=== PATIENT | female | born 1950 | race Caucasian/White ===

== ENCOUNTER → 2021-03-01 15:40 | Outpatient (BNVA) | payer SELFPAY | PROVIDERS: Visit Provider Nurse Practitioner Family | DX: R06.02 Shortness of breath (principal); I48.91 Unspecified atrial fibrillation; I87.1 Compression of vein; G62.9 Polyneuropathy, unspecified; I10 Essential (primary) hypertension; E83.42 Hypomagnesemia; R09.02 Hypoxemia; G47.00 Insomnia, unspecified; M17.0 Bilateral primary osteoarthritis of knee | CPT/HCPCS: 71046 ==

== ENCOUNTER → 2021-03-11 13:06 | Outpatient (BNVA) | payer MEDICARE, OTHER, SELFPAY | PROVIDERS: Visit Provider Nurse Practitioner Family | DX: I10 Essential (primary) hypertension (principal); E83.42 Hypomagnesemia | CPT/HCPCS: 80053; 80061; 82306; 82607; 83735; 84443; 85025 ==

== ENCOUNTER 2021-03-15 16:18 | Inpatient (IN) | payer MEDICARE, SELFPAY ==
[2021-03-15] VITALS (9 sets, daily range): BP systolic 122–170; BP diastolic 69–96; PULSE 67–79; RESP 20–25; TEMP 36.4; O2SAT 91–95
--- NOTE | 2021-03-15 17:30 | XRR_ITS ---
PROCEDURE INFORMATION: Exam: XR Chest Exam date and time: 03/15/2021 5:30 PM Age: 70 years old Clinical indication: Shortness of breath; Additional info: Short of breath TECHNIQUE: Imaging protocol: XR of the chest. Views: 1 view. COMPARISON: CR XR chest 2V* [id number] 03/01/2021 3:46 PM FINDINGS: Lungs: Diffusely prominent reticular interstitial lung changes. Dense patchy airspace opacification in the lateral right lower lobe. Pleural spaces: Unremarkable. No pleural effusion. No pneumothorax. Heart/Mediastinum: Unremarkable. No cardiomegaly. Bones/joints: Unremarkable. XR/XR chest 1V portable [id number] IMPRESSION: Right lower lobe pneumonia suspected. Radiation Dose CTDIVOL = (mGy): DLP = (mGy-cm)
--- NOTE | 2021-03-15 17:31 | ECG_ITS ---
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 Measurements Intervals [place] Rate: 71 P: -25 MN: 134 QRS: 18 QRSD: 93 T: 30 QT: 400 QTc: 436 Interpretive Statements SINUS RHYTHM LOW QRS VOLTAGE IN PRECORDIAL LEADS [QRS DEFLECTION < 1.0 mV IN CHEST LEADS] Compared to ECG 03/15/2021 20:39:53 No significant changes Electronically Signed On 03-16-2021 21:58:50 OUTBOUND SALES SPECIALIST by Sunil Quan M.D. [id number]
--- NOTE | 2021-03-15 19:31 | ECG_ITS ---
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 Measurements Intervals [place] Rate: 72 P: 53 GA: 141 QRS: 10 QRSD: 88 T: 25 QT: 403 QTc: 441 Interpretive Statements SINUS RHYTHM LOW QRS VOLTAGE IN PRECORDIAL LEADS [QRS DEFLECTION < 1.0 mV IN CHEST LEADS] No previous ECG available for comparison Electronically Signed On 03-16-2021 22:07:30 BUSINESS DATA ANALYST by Sunil Quan M.D. [id number]
[2021-03-15 19:44] LABS: Hematocrit 30.7 % (37.0-47.0); Hemoglobin 10.1 g/dL (11.5-15.3); Mean Corpuscular HGB Conc 32.9 g/dL (30.0-36.0); Mean Corpuscular Hemoglobin 29.3 pg (28.0-34.0); Platelet Count 165 10^3/cmm (130-400); Red Blood Count 3.45 10^6/uL (4.1-5.3); Red Cell Distribution Width 13.2 % (12.1-15.1)
--- NOTE | 2021-03-15 19:44 | ED_ITS ---
HPI - SOB/Dyspnea General: Chief Complaint: Shortness of Breath/Dyspnea Stated Complaint: Difficulty breathing, little movement Time Seen by Provider: 03/15/21 19:32 Source: patient Mode of arrival: ambulatory Limitations: no limitations History of Present Illness: HPI Narrative: 70-year-old female who has history of A. fib along with interstitial lung disease and history of cancer many years ago. She had a [id number] smoking history she is recently moved here from [place] on seeing her physician here for the first time 2 weeks ago patient at that time had seen a PCP because she been having increasing dyspnea and weakness for the last 3 to 4 months. Patient at that time was found to be hypoxic started on home oxygen at 3 L patient states that she just has been getting weaker than more short of breath since then patient here is very unsteady on her feet having difficulty ambulate and family states it has been worsening since the summer as well. She states that she has had some swelling in her neck as well and has been having some difficulty swallowing due to that. Denies any chest pain. 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 Neuropathy Vitamin D deficiency Surgical History History of dilation and curettage History of surgery on wrist 2001 History of total hysterectomy Social History Smoking and tobacco status: former smoker Quit status (tobacco): has quit using tobacco Year quit tobacco: 1999 Former quit date comment: 2 x 30 yr Second hand smoke exposure: Yes Alcohol intake: current Alcohol intake frequency: holidays/special occasions only Caregiver/support person: Yes Lives independently: No Household members: family Marital status: service: No Current occupational status: retired History of recent travel: No Current gender identity: Female Special colten needs: No Agree to transfusion: Yes Physical Exam Const: COMMON NORMALS: patient oriented x3 GENERAL APPEARANCE: in distress and ill appearing HENMT: COMMON NORMALS: normocephalic and atraumatic HEAD & SCALP: normocephalic and atraumatic Eye: COMMON NORMALS: Equal, round and reactive pupils present and EOMs intact bilaterally PUPIL: Yes Equal, round and reactive pupils present Neck/C-Spine: COMMON NORMALS: full ROM and supple Chest: COMMONS NORMALS: normal inspection of the chest and normal palpation of entire chest wall Resp: COMMON NORMALS: normal respiratory effort, No retractions and No use of accessory muscles AUSCULTATION: rales on the right Cardio: COMMON NORMALS: regular rate, regular rhythm and No murmurs present (Cardio) RATE: regular rate RHYTHM: regular rhythm GI: COMMON NORMALS: Normal to inspection, nondistended, normoactive bowel sounds present, Soft to palpation, non-tender and no masses PALPATION: Yes Soft to palpation Extremity: COMMON NORMALS: normal to inspection and full ROM Neuro: COMMON NORMALS: patient oriented x3, moves all extremities and no focal motor deficits Psych: COMMON NORMALS: mental status grossly normal, Normal thought process present and cooperative THOUGHT PROCESS: Normal thought process present Skin: COMMON NORMALS: no rashes or lesions noted and no wounds GENERAL SKIN EXAM: no rashes or lesions noted Course Vital Signs: Vital signs: Vital Signs Temperature 97.5 F L 03/15/21 16:52 Pulse Rate 73 03/15/21 21:40 Respiratory Rate 25 H 03/15/21 21:40 Blood Pressure 156/92 03/15/21 21:40 Pulse Oximetry 93 03/15/21 21:40 MDM - SOB/Dyspnea MDM Narrative: Medical decision making narrative: Patient presents with cough increasing dyspnea does have a right lower lobe pneumonia on x-ray patient has an elevated white count likely due to the pneumonia. She is also dehydrated with an elevated creatinine. She has normal lactate blood pressures here been normal she does have elevated troponin and BNP will treat with heparin and heparin drip. Was going to do CTA to rule out pulmonary embolism but unable to do at this time due to elevated creatinine I spoke to the hospitalist will admit to the ICU. Lab Data: Labs: Lab Results 03/15/21 03/15/21 03/15/21 19:27 19:27 19:27 WBC 31.2 10^3/uL H* 1 0^3/uL (4.0-10.0) RBC 3.45 10^6/uL L 10 ^6/uL (4.1-5.3) Hgb 10.1 g/dL L g/dL (11.5-15.3) Hct 30.7 % L % (37.0-47.0) MCV 89.0 fl fl (81-99) MCH 29.3 pg pg (28.0-34.0) MCHC 32.9 g/dL g/dL (30.0-36.0) RDW 13.2 % % (12.1-15.1) Plt Count 165 10^3/cmm 10^3 /cmm (130-400) MPV 10.0 fL fL (7.4-10.4) Lymph % (Auto) Not Reportable [place] % (Auto) Not Reportable Lymph # (Auto) Not Reportable [place] # (Auto) Not Reportable Total Counted 100 (0-100) Atypical Lymphs % 0.0 % % (0-5) Absolute Neutrophi ls 28.7 10^3/cmm H 1 0^3/cmm (1.4-6.5) Segmented Neutroph ils 67 % % Abs Segm Neuts (Ma n) 20.9 10/cmm H 10/ cmm (1.6-7.1) Band Neutrophils 25.0 % % Abs Band Neuts (Ma n) 7.8 10^3/cmm H 10 ^3/cmm (0.0-1.2) Absolute Lymphocyt es 1.6 10^3/cmm 10^3 /cmm (1.2-3.4) Lymphocytes (Manua l) 5 % % Monocytes (Manual) 3.0 % % Absolute Monocytes 0.9 10^3/cmm H 10 ^3/cmm (0.1-0.6) Eosinophils (Manua l) 0 % % Absolute Eosinophi ls 0.0 10^3/cmm 10^3 /cmm (0.0-0.7) Basophils (Manual) 0.0 % % Absolute Basophils 0.0 10^3/cmm 10^3 /cmm (0.0-0.2) Platelet Estimate Normal (Normal) [place] Cells Trace D-Dimer Specimen Type Sample Site ABG pH ABG pCO2 ABG pO2 ABG HCO3 ABG Base Excess [place] Test Hematocrit O2 Delivery Device O2 Liters/Min Travel Occupational Therapist ID Sodium 132 mmol/L L mmol /L (136-145) Potassium 4.4 mmol/L mmol/L (3.5-5.1) Chloride 89 mmol/L L mmol/ L (98-107) Carbon Dioxide 24 mmol/L mmol/L (22-29) Anion Gap 23.4 H (5-19) BUN 56 mg/dL H mg/dL (8-23) Creatinine 3.7 mg/dL H mg/dL (0.5-0.9) GFR Calculation 12.1 mL/min L mL/ min (90-130) Glucose 118 mg/dL H mg/dL (65-115) Calculated Osmolal ity 291 mOsm/kg mOsm/ kg (285-295) Lactate Calcium 9.6 mg/dL mg/dL (8.5-10.5) Total Bilirubin 0.8 mg/dL mg/dL (0.15-1.2) AST 42 U/L H U/L (0-32) ALT 40 U/L H U/L (0-33) Alkaline Phosphata se 117 IU/L H IU/L (35-105) Troponin T Baselin e 188 ng/L H* ng/L (0-10) NT-Pro-B Natriuret Pep 80246 pg/mL H pg/ mL (0-125) Total Protein 7.0 g/dL g/dL (6.6-8.7) Albumin 3.5 g/dL g/dL (3.5-5.2) Globulin 3.5 g/dL g/dL (1.3-4.6) 03/15/21 03/15/21 03/15/21 19:27 20:24 21:13 WBC RBC Hgb Hct MCV MCH MCHC RDW Plt Count MPV Lymph % (Auto) [place] % (Auto) Lymph # (Auto) [place] # (Auto) Total Counted Atypical Lymphs % Absolute Neutrophi ls Segmented Neutroph ils Abs Segm Neuts (Ma n) Band Neutrophils Abs Band Neuts (Ma n) Absolute Lymphocyt es Lymphocytes (Manua l) Monocytes (Manual) Absolute Monocytes Eosinophils (Manua l) Absolute Eosinophi ls Basophils (Manual) Absolute Basophils Platelet Estimate [place] Cells D-Dimer 6.02 ug/mIFEU H u g/mIFEU (0-0.59) Specimen Type Arterial Sample Site Radial, right ABG pH 7.45 (7.35-7.45) ABG pCO2 37.3 mmHg mmHg (35-45) ABG pO2 62.9 mmHg L mmHg (80.0-100.0) ABG HCO3 26.0 mmol/L mmol/ L (22-26) ABG Base Excess 2.0 mmol/L mmol/L (-2.0-2.0) [place] Test Pos Hematocrit 37.1 % % (37-47) O2 Delivery Device Nc O2 Liters/Min 4.0 % % Travel Occupational Therapist ID [email or web address] Sodium Potassium Chloride Carbon Dioxide Anion Gap BUN Creatinine GFR Calculation Glucose Calculated Osmolal ity Lactate 1.4 mmol/L mmol/L (0.5-2.2) Calcium Total Bilirubin AST ALT Alkaline Phosphata se Troponin T Baselin e NT-Pro-B Natriuret Pep Total Protein Albumin Globulin Imaging Data^: CXR: Attestation: I personally reviewed and interpreted this imaging study as follows: Radiologist's impression: ADM Date: 03/15/21 Loc: ER Room/Bed: Attending Dr: Ordering Provider/Ordering MD: Jignesh Ba NP Date of Service: 03/15/21 Procedure(s): XR chest 1V portable [id number] Accession Number(s): [id number] Report Number: [id number] PROCEDURE INFORMATION: Exam: XR Chest Exam date and time: 03/15/2021 5:30 PM Age: 70 years old Clinical indication: Shortness of breath; Additional info: Short of breath TECHNIQUE: Imaging protocol: XR of the chest. Views: 1 view. COMPARISON: CR XR chest 2V* [id number] 03/01/2021 3:46 PM FINDINGS: Lungs: Diffusely prominent reticular interstitial lung changes. Dense patchy airspace opacification in the lateral right lower lobe. Pleural spaces: Unremarkable. No pleural effusion. No pneumothorax. Heart/Mediastinum: Unremarkable. No cardiomegaly. Bones/joints: Unremarkable. XR/XR chest 1V portable [id number] IMPRESSION: Right lower lobe pneumonia suspected. Radiation Dose CTDIVOL = (mGy): DLP = (mGy-cm) Dictated By: Samuel Abreu Signed By: Samuel Abreu Signed Date/Time: 03/15/21 1847 DD/ 1730 EKG Data^: EKG 1: Attestation: I personally reviewed and interpreted this EKG as follows: EKG Interpretation Date: 03/15/21 EKG interpretation time: 20:39 Interpretation: nsr hr [address] or t wave abnormalities qrs 88 qtc 427 EKG 2: Attestation: I personally reviewed and interpreted this EKG as follows: EKG Interpretation Date: 03/15/21 EKG interpretation time: 21:00 Interpretation: nsr hr [address] or t wave abnormalities qrs 93 qtc 422 Discharge Plan Discharge Patient Disposition: Admitted As Inpatient Admit Provider: Kayy Buck Clinical Impression: Elevated troponin Community acquired pneumonia Qualifiers: Laterality: right Lung location: lower lobe of lung Qualified Code(s): J18.9 - Pneumonia, unspecified organism Condition: Stable Coding Level of Care Code ED Desk Maker for g Fwd Exam Comprehensive
[2021-03-15] MEDS: ipratropium-albuterol 3 mL Neb INHALATION (20:00)
[2021-03-15 20:03] LABS: Absolute Neutrophil 28.7 10^3/cmm (1.4-6.5); Absolute Segmented Neutrophil 20.9 10/cmm (1.6-7.1); Band Neutrophils Absolute 7.8 10^3/cmm (0.0-1.2); Burr Cells Trace; Eosinophils 0 %; Lymphocytes 5 %; Lymphocytes Absolute 1.6 10^3/cmm (1.2-3.4); Monocytes Absolute 0.9 10^3/cmm (0.1-0.6); Platelet Estimate Normal (Normal); Segmented Neutrophils 67 %; Total Cells Counted 100 (0-100)
[2021-03-15 20:05] LABS: White Blood Count 31.2 10^3/uL (4.0-10.0)
[2021-03-15 20:10] LABS: Troponin(5th) Baseline 188 ng/L (0-10)
[2021-03-15 20:15] LABS: Alanine Aminotransferase 40 U/L (0-33); Albumin Level 3.5 g/dL (3.5-5.2); Alkaline Phosphatase 117 IU/L (35-105); Anion Gap 23.4 (5-19); Aspartate Amino Transferase 42 U/L (0-32); Blood Urea Nitrogen 56 mg/dL (8-23); Calcium 9.6 mg/dL (8.5-10.5); Carbon Dioxide 24 mmol/L (22-29); Chloride 89 mmol/L (98-107); Globulin 3.5 g/dL (1.3-4.6); Glomerular Filtration Rate 12.1 mL/min (90-130); Glucose 118 mg/dL (65-115); NT Pro B Type Natriuretic Pept 27729 pg/mL (0-125); Osmolality Calculated 291 mOsm/kg (285-295); Potassium 4.4 mmol/L (3.5-5.1); Sodium 132 mmol/L (136-145); Total Bilirubin 0.8 mg/dL (0.15-1.2)
[2021-03-15 20:57] LABS: Lactate (Lactic Acid level) 1.4 mmol/L (0.5-2.2)
[2021-03-15] MEDS: sodium chloride 0.9% 1,000 ML 999 ML IV (21:09)
[2021-03-15 21:10] LABS: D Dimer 6.02 ug/mIFEU (0-0.59)
[2021-03-15] MEDS: levofloxacin-dextrose 5 % 750 MG/150 ML PREMIX 100 MG IV (21:10)
--- NOTE | 2021-03-15 21:15 | CTR_ITS ---
PROCEDURE INFORMATION: Exam: CT Chest Without Contrast; Diagnostic Exam date and time: 03/15/2021 9:15 PM Age: 70 years old Clinical indication: Shortness of breath; Additional info: Rll pneumonia, progressive dyspnea TECHNIQUE: Imaging protocol: Diagnostic computed tomography of the chest without contrast. Radiation optimization: All CT scans at this facility use at least one of these dose optimization techniques: automated exposure control; mA and/or kV adjustment per patient size (includes targeted exams where dose is matched to clinical indication); or iterative reconstruction. COMPARISON: CR (CHEST, ) 03/15/2021 6:09 PM RADIATION DOSE METRICS: Total DLP (mGy-cm): 1124.3 FINDINGS: Lungs: Emphysema. Coarse reticular interstitial lung changes. Mosaic attenuation changes. Patchy ground-glass changes in the right middle lobe and right lower lobe. Pleural spaces: Small volume right pleural effusion. Negative for pneumothorax. Heart: Unremarkable. No cardiomegaly. No pericardial effusion. Aorta: Unremarkable. No aortic aneurysm. Lymph nodes: Bulky diffuse mediastinal lymphadenopathy. Large right paratracheal lymph node is partially calcified. Enlarged right paratracheal lymph node measures 3.6 cm x 2.5 cm. Enlarged lymph node mass in the prevascular space measures 5.1 cm x 2.8 cm on axial series 2, image 18. Diaphragm: Mildly elevated right diaphragm. Right lower lobe compressive atelectasis. Adrenal glands: Isoattenuating circumscribed soft tissue mass of the right adrenal gland with indeterminate features on noncontrast imaging measures 3 cm x 2.7 cm. Bones/joints: The thoracic spine demonstrates moderate degenerative changes at multiple levels. No focal suspicious bone lesion. Soft tissues: Chest wall soft tissues are unremarkable. Thoracic paraspinal soft tissues are unremarkable. CT/CT chest wo con [id number] IMPRESSION: 1. Diffuse mediastinal lymphadenopathy. Diagnostic considerations include sequela of granulomatous disease, lymphoproliferative disorder, atypical infection, or metastatic malignancy. 2. Small volume right pleural effusion. 3. Pneumonia in the right lung is not excluded. 4. Indeterminate right adrenal gland mass. 5. Adrenal protocol CT scan recommended. COMMENTS: Consistent with the [employer]'s Incidental Findings Committee white paper (J Am Janie Radiol 2017): For any incidental adrenal lesion greater than 1 cm but less than 4 cm classified in this report as benign, likely benign, or containing fat (including classification as an adenoma or myelolipoma), no follow-up imaging is recommended per consensus recommendations based on imaging criteria. Further lab evaluation could be pursued if warranted based on clinical findings. Radiation Dose CTDIVOL = (mGy): DLP = 1124.3 (mGy-cm)
--- NOTE | 2021-03-15 21:18 | CTR_ITS ---
PROCEDURE INFORMATION: Exam: CT Neck Without Contrast Exam date and time: 03/15/2021 9:18 PM Age: 70 years old Clinical indication: Dysphagia / difficulty swallowing and dyspnea / difficulty breathing; Additional info: Lymphadenopathy on exam, worsening uri, pneumonia TECHNIQUE: Imaging protocol: Computed tomography images of the neck without contrast. Radiation optimization: All CT scans at this facility use at least one of these dose optimization techniques: automated exposure control; mA and/or kV adjustment per patient size (includes targeted exams where dose is matched to clinical indication); or iterative reconstruction. COMPARISON: CR (CHEST, ) 03/15/2021 6:09 PM RADIATION DOSE METRICS: Total DLP (mGy-cm): 473.36 FINDINGS: Nasopharynx: Unremarkable. Oropharynx: Unremarkable. No significant tonsillar enlargement. Hypopharynx: Unremarkable. Larynx: Unremarkable. Normal epiglottis. Retropharyngeal space: Unremarkable. Submandibular/Parotid glands: Normal. Glands are normal in size. Thyroid: Thyroid lobes are symmetric and unremarkable. Lymph nodes: There is lymphadenopathy in the superior mediastinum but this is incompletely assessed. There is no lymphadenopathy in the neck. Trachea: Visualized trachea is unremarkable. Lungs: Emphysematous lung changes. Mosaic attenuation of the lung apices. Coarse reticular interstitial lung changes. Right pleural effusion. Bones/joints: Severe disc disease at C5-C6 and C6-C7. No acute cervical spine fractures are identified. Vasculature: Large volume calcified atherosclerotic wall plaques of the carotid arteries. Bilateral carotid artery bulb region atherosclerotic wall plaques. Soft tissues: Unremarkable. No significant soft tissue swelling. CT/CT neck wo con [id number] IMPRESSION: 1. Negative for cervical lymphadenopathy. 2. Partially visible mediastinal lymphadenopathy. 3. No acute soft tissue abnormality in the neck. 4. Right pleural effusion. Radiation Dose CTDIVOL = (mGy): DLP = 473.36 (mGy-cm)
[2021-03-15 21:24] LABS: ABG PCO2 37.3 mmHg (35-45); ABG PH Result 7.45 (7.35-7.45); Arterial Blood Gas Hematocrit 37.1 % (37-47); Blood Gas Allen Test Pos; Blood Gas Sample Type Arterial; PO2 ABG 62.9 mmHg (80.0-100.0)
[2021-03-15 21:26] LABS: Blood Gas Sample Site Radial, right; Oxygen Device NC
[2021-03-15 22:41] LABS: HIV 1 & 2 Antibody Non-Reactive (Non-Reactiv); HIV 1 & 2 Antigen Non-Reactive (Non-Reactiv)
[2021-03-15 23:26] LABS: Troponin 5 2HR Delta -10.4 ABS# (0-10)
[2021-03-15 23:27] LABS: Troponin 5 2HR 177.6 ng/L (0-10)
[2021-03-15] MEDS: heparin 5,000 unit/mL INJ 1 mL 4000 UNIT IVP (23:31)
--- NOTE | 2021-03-15 23:31 | ECG_ITS ---
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 Measurements Intervals [place] Rate: 72 P: 65 VA: 159 QRS: 45 QRSD: 96 T: 29 QT: 398 QTc: 438 Interpretive Statements SINUS RHYTHM Compared to ECG 03/15/2021 21:00:54 No significant changes Electronically Signed On 03-16-2021 22:11:59 ELECTRON BEAM PHOTO MASK TECHNICIAN by Sunil Quan M.D. [id number]
[2021-03-15] MEDS: heparin drip 25,000 UNIT/500 ML PREMIX 26 UNIT IV (23:32)
[2021-03-15 23:33] LABS: SARS Covid-2 Antigen Negative (Negative)
[2021-03-15] MEDS: cefepime 1,000 MG in sodium chloride 0.9% (plus) 50 ML 100 MG IV (23:34)
[2021-03-16] VITALS (67 sets, daily range): BP systolic 115–233; BP diastolic 67–141; PULSE 63–88; RESP 15–29; TEMP 36.3–36.6; O2SAT 86–97; BMI 34.7
[2021-03-16] MEDS: vancomycin 1,000 MG in sodium chloride 0.9% 250 ML 250 MG IV (00:19)
[2021-03-16 00:33] LABS: Glucose Point of Care 148 mg/dL (70-110)
[2021-03-16] MEDS: acetaminophen 325 mg Tablet 650 MG PO (00:33)
[2021-03-16 00:38] LABS: Influenza A by IFA Negative (Negative); Influenza B by IFA Negative (Negative)
[2021-03-16] MEDS: ipratropium-albuterol 3 mL Neb INHALATION ×5 (00:42→20:05)
--- NOTE | 2021-03-16 01:00 | PM.HP ---
Providers/Chief Complaint Admitting Physician: Kayy Buck MD Chief Complaint: Difficulty breathing, little movement History of Present Illness Juliet Adair is a 70 year old female moved locally into the area from [place] earlier this year, has not had any medical care in the past 2 years, recently established care with her PCP on 03/01/21. She has been experiencing ongoing symptoms for about 3 weeks now. Reports her symptoms to be cough, associated with expectoration and blood streaking, increasing shortness of breath starting approximately 3 weeks ago. On March 01 she had described to her PCP additional symptoms of runny nose sore throat and hoarseness of voice. She was also able to reportedly palpate cervical lymphadenopathy and was concerned about recurrence of uterine cancer which she has had in the past. Reportedly cancer free for the last 4 years. Symptoms do not appear to be worsened with lying flat. Denies any chest pain. Has intermittent palpitations from known atrial fibrillation. She is not on any anticoagulation. 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 She does have some chronic swelling in her left leg because of this. On the same visit her O2 sats were noted to drop down to 83% with ambulation and started on supplemental O2. Patient reported mild improvement with initiation of oxygen supplementation but then over the past 3 weeks has had a recurrence and in fact worsening of symptoms. She had a chest x-ray at the time and suspected to have pneumonia for which she was started on antibiotic coverage with Augmentin and then levofloxacin with no improvement. Diagnostics today are significant for elevated white blood cell count up to 31,000 chest x-ray with right lower lobe pneumonia. Elevated troponins greater than 100, D-dimer elevated at 6, elevated BNP at 27,000. Rapid Covid antigen negative, PCR pending. Review of Systems General: Reports: 10 or more systems reviewed and unremarkable except in HPI and below Const: Denies: fever(s), chills or body aches Eyes: Denies: change in vision, blurry vision or photophobia ENMT: Reports: hoarseness; Denies: throat pain, enlarged tonsils, odynophagia or nasal congestion Card: Denies: chest pain, palpitations, irregular heart rhythm, edema, swelling of feet/ankles, lightheadedness, pre-syncope, dyspnea on exertion or orthopnea Resp: Denies: dyspnea, productive cough, non-productive cough, wheezing, stridor, pain on inspiration, change in phlegm color, hemoptysis or chest congestion GI: Denies: abdominal pain, nausea, vomiting, hematemesis, coffee ground emesis, dysphagia, heartburn, diarrhea, constipation, GI cramping, change in stool character, hematochezia or melena : Denies: flank pain, difficulty voiding, dysuria, urinary frequency, urinary urgency, urinary hesitancy or hematuria Musc: Denies: neck pain, back pain, extremity pain, joint swelling, joint warmth or deformity Neuro: Denies: headache(s), numbness in extremities, weakness in extremities, sensory changes, difficulty walking, frequent falls, dizziness, vertigo, behavioral changes, Slurred speech present or seizure-like activity Psych: Denies: anxiety, depression, suicidal ideation or homicidal ideation Endo: Denies: polyuria, polydipsia, tired all the time, cold intolerance or hot flashes Manuel/Lymph: Denies: easy bruising or easy bleeding Medications/Allergies Home Medications Medication Instructions Recorded Confirmed Last Taken Type albuterol sulfate 90 mcg/actuation 2 puff INHALATION Q6H PRN #8.5 g 03/01/21 03/01/21 Unknown Rx aerosol inhaler amoxicillin 875 mg-potassium 1 tab PO BID #20 tab 03/01/21 03/01/21 Unknown Rx clavulanate 125 mg tablet ascorbic acid (vitamin C) 1,000 mg 1 g PO Q6H 03/01/21 03/01/21 Unknown History tablet aspirin 81 mg tablet,delayed 81 mg PO DAILY 03/01/21 03/01/21 Unknown History release carvedilol 25 mg tablet 25 mg PO BID 90 Days #180 tab 03/01/21 03/01/21 Unknown Rx cholecalciferol (vitamin D3) 25 25 mcg PO DAILY 03/01/21 03/01/21 Unknown History mcg (1,000 unit) capsule furosemide 40 mg tablet 40 mg PO DAILY #90 tab 03/01/21 03/01/21 Unknown Rx gabapentin 300 mg capsule 300 mg PO TID 90 Days #270 cap 03/01/21 03/01/21 Unknown Rx losartan 100 1 tab PO DAILY #90 tab 03/01/21 03/01/21 Unknown Rx mg-hydrochlorothiazide 25 mg tablet magnesium oxide 500 mg capsule 500 mg PO DAILY #90 cap 03/01/21 03/01/21 Unknown Rx naproxen 500 mg tablet 500 mg PO BID 90 Days #180 tab 03/01/21 03/01/21 Unknown Rx niacin 1,000 mg tablet,extended 1,000 mg PO DAILY tab 03/01/21 03/01/21 Unknown History release potassium chloride 20 mEq 20 meq PO DAILY #90 tab 03/01/21 03/01/21 Unknown Rx tablet,extended release tramadol 50 mg tablet 50 mg PO BID PRN #60 tab 03/01/21 03/01/21 Unknown Rx zolpidem 10 mg tablet 10 mg PO .hs #30 tab 03/01/21 03/01/21 Unknown Rx oxygen 4L via NC #1 ea 03/04/21 Unknown Rx levofloxacin 500 mg tablet 500 mg PO DAILY #7 tab 03/14/21 Unknown Rx methylprednisolone 4 mg tablets in See Rx Instructions PO PER PKG DIR 03/14/21 Unknown Rx a dose pack #21 ea Allergies Allergy/AdvReac Type Severity Reaction Status Date / Time amoxicillin [From Augmentin] Allergy ADR-Diarrhe Verified 03/15/21 16:58 a azithromycin Allergy ADR-Diarrhe Verified 03/15/21 16:58 a clavulanic acid Allergy ADR-Diarrhe Verified 03/15/21 16:58 [From Augmentin] a meperidine Allergy ALGY-Hives Verified 03/01/21 14:20 PFSH Acute PFSH: Medical History A-fib 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 Neuropathy Vitamin D deficiency Surgical History History of dilation and curettage History of surgery on wrist 2001 History of total hysterectomy Social History Smoking and tobacco status: former smoker Quit status (tobacco): has quit using tobacco Year quit tobacco: 1999 Former quit date comment: 2 x 30 yr Second hand smoke exposure: Yes Alcohol intake: current Alcohol intake frequency: holidays/special occasions only Caregiver/support person: Yes Lives independently: No Household members: family Marital status: service: No Current occupational status: retired History of recent travel: No Current gender identity: Female Special colten needs: No Agree to transfusion: Yes Vitals/I&O/Wt Last Vital Signs Temp 97.3 F L 03/16/21 04:00 Pulse 79 03/16/21 06:00 Resp 16 03/16/21 04:45 BP 168/103 03/16/21 05:45 Pulse Ox 94 03/16/21 05:45 03/15/21 03/16/21 03/16/21 22:59 06:59 14:59 Intake Total 1613.367 / 1613.367 Output Total 300 / 300 Balance 1313.367 / 1313.367 Weight last 48 hrs Weight 91.626 kg Weight 92.986 kg Physical Exam Narrative: EXAM NARRATIVE: General: No acute distress, AO x3, visibly dyspneic on exam HEENT: PERRLA, pupils bilaterally equal and reactive, pallors not present Chest: Normal vesicular breath sounds, no added sounds, equal good air entry bilaterally CVS: S1-S2 regular, no murmurs, no tachycardia, no gallops, no rubs Abdomen: Soft, nontender, no organomegaly, bowel sounds present Neuro: No focal deficits, no facial deformity, AO x3, power 5/5 in all limbs reports blurring of vision Extremities: Left lower extremity swelling more compared to right side Data : 03/15/21 19:27 03/15/21 19:27 Micro: Microbiology 03/15/21 20:55 Blood Culture - Preliminary Blood SPECIMEN COLLECTED 03/15/21 20:24 Blood Culture - Preliminary Blood SPECIMEN COLLECTED Attestation for Other Data: I personally reviewed and interpreted the following: Other data: XR/XR chest 1V portable [id number] IMPRESSION: Right lower lobe pneumonia suspected. A&P Assessment and plan (1) Sepsis: Status: Acute Qualifiers: Sepsis type: sepsis due to unspecified organism Sepsis acute organ dysfunction status: with acute organ dysfunction Severe sepsis acute organ dysfunction type: acute renal failure Severe sepsis shock status: without septic shock Acute renal failure type: unspecified Qualified Code(s): A41.9 - Sepsis, unspecified organism; R65.20 - Severe sepsis without septic shock; N17.9 - Acute kidney failure, unspecified (2) Community acquired pneumonia: Status: Acute Qualifiers: Laterality: right Lung location: lower lobe of lung Qualified Code(s): J18.9 - Pneumonia, unspecified organism (3) Elevated troponin: Status: Acute (4) Hypertension: Status: Acute Qualifiers: Hypertension type: unspecified Qualified Code(s): I10 - Essential (primary) hypertension (5) A-fib: Status: Acute Qualifiers: Atrial fibrillation type: unspecified Qualified Code(s): I48.91 - Unspecified atrial fibrillation (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 (7) Respiratory failure with hypoxia: Status: Acute Qualifiers: Chronicity: acute Qualified Code(s): J96.01 - Acute respiratory failure with hypoxia (8) Acute kidney injury: Status: Acute Additional A&P Information Patient with a notable past medical history of hypertension, May Thurner syndrome, atrial fibrillation not currently on any anticoagulation presenting with worsening dyspnea increasing cough expectoration and hemoptysis at least over the last 3 weeks, without improvement on outpatient course of Augmentin on levofloxacin. Admit to ICU in view of sepsis and multiorgan failure #Sepsis: Meets criteria with elevated white blood cell count, tachycardia tachypnea. Also additionally with signs of endorgan failure including hypoxic respiratory failure, acute kidney injury. Subjective fever and chills also reported at home, currently afebrile since presentation into the ER. Fluid supplementation not initiated as patient is clinically euvolemic, elevated BNP 27,000 may have underlying CHF additionally. Blood culture taken prior to initiation of antibiotics Start empiric antibiotic coverage with cefepime, vancomycin and levofloxacin for atypical coverage All antibiotics to be renally dosed. Preliminarily source appears to be worsening pneumonia. Chest x-ray with right lower lobe infiltrate. Perform CT chest to assess for pneumonia, potential complications incl complicated effusions, empyema possibilities. CT neck additionally to evaluate for cervical LAD. supplemental 02 to keep saturation >92% Duoneb and budesonide inhalation, hold off on steroids for now COVID, MRSA PCR, sputum gram stain and cx, influenza ag unvaccinated for COVID and Flu # Pneumonia: clinically worsening as above. Abx coverage as above # Elevated troponin: 2 hr delta negative Also with elevated D dimer, worsening dyspnea, and h/o May thruner syndrome, high suspicion for DVT/PE. Cannot obtain CTA chest due to DEBRA. Check LE venous duplex and echocardiogram for right heart strain, right side heart failure . Currently euvolemic. Start presumptive anticoagulation with heparind drip # elevated troponin : May be related to NSTEMI vs posisble PE. Echocardiogram ordered to assess RWMA, systolic and distaolic function. Heparin a/c presumptively Continue ASA 81mg po daily # DEBRA : Cr up to 3.7, up from 1.3 on 03/11. No past h/o CKD per patient Check bladder scan, renal US, urine lytes Renally dose all abx Hold NSAIDs, HCTZ and losartan Continue carvedilol # A fib, currently rate controlled. Continue Coreg. Patient not on a/c as outpatient # Transaminitis : likely from sepsis. Abdominal imaging if continues to worsen. Normal T.bili, mild elevation ALP to 117. Attestations Medical Necessity Statement*: >2midnight admission anticipated for above defined care Critical Care Time: The high probability of a clinically significant, sudden or life threatening deterioration of the patient's [respiratory, cardiovascular, renal, ID] system(s) required my full and direct attention, intervention and personal management. The critical care time is as shown. 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 [facility] Fwd Diagnoses Sepsis A41.9; R65.20; N17.9 Sepsis type: sepsis due to unspecified organism Sepsis acute organ dysfunction status: with acute organ dysfunction Severe sepsis acute organ dysfunction type: acute renal failure Severe sepsis shock status: without septic shock Acute renal failure type: unspecified Community acquired pneumonia J18.9 Laterality: right Lung location: lower lobe of lung Elevated troponin R77.8 Hypertension I10 Hypertension type: unspecified A-fib I48.91 Atrial fibrillation type: unspecified May-Thurner syndrome I87.1 Respiratory failure with hypoxia J96.01 Chronicity: acute Acute kidney injury N17.9
[2021-03-16 03:59] LABS: Troponin 5 6HR 147.3 ng/L (0-10)
--- NOTE | 2021-03-16 04:41 | CTR_ITS ---
PROCEDURE INFORMATION: Exam: CT Head Without Contrast Exam date and time: 03/16/2021 4:41 AM Age: 70 years old Clinical indication: Visual disturbance; Patient HX: Patient states sudden onset of blurry vision. Exam repeated due to motion. Best exam submitted. ; Additional info: Change in vision TECHNIQUE: Imaging protocol: Computed tomography of the head without contrast. Radiation optimization: All CT scans at this facility use at least one of these dose optimization techniques: automated exposure control; mA and/or kV adjustment per patient size (includes targeted exams where dose is matched to clinical indication); or iterative reconstruction. COMPARISON: CT neck wo con [id number] 2021-03-15 21:46 RADIATION DOSE METRICS: Total DLP (mGy-cm): 1171.3 FINDINGS: Brain: No midline shift, mass, fluid collection, or evidence of acute hemorrhage. Loss of stovall-white differentiation in the left more so than right occipital lobes with areas of low attenuation extending into the juxtacortical region. Recommend MRI, suspect ischemia, or potentially PRES. Cerebral ventricles: No ventriculomegaly. Paranasal sinuses: Visualized sinuses are unremarkable. No fluid levels. Mastoid air cells: Visualized mastoid air cells are well aerated. Bones/joints: Unremarkable. No acute fracture. Soft tissues: Unremarkable. CT/CT head wo con* [id number] IMPRESSION: Loss of stovall-white differentiation in the left more so than right occipital lobes with areas of low attenuation extending into the juxtacortical region. Recommend MRI, suspect ischemia, or potentially PRES. Radiation Dose CTDIVOL = (mGy): DLP = 1171.3 (mGy-cm)
--- NOTE | 2021-03-16 05:37 | PC.NURSE ---
At 0015 patient states my vision is changing Patient furthered assessed and found to have blurry vision on left side. NIH completed with score of 3. BP 180/. Patient does not show any other symptoms of stroke. 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 Dr Buck paged twice with results and no response. Dr Buck paged again when patient BP continues to increase 200/106. Dr Buck ordered CT head. Ct head shows bilateral occipital infarcts, Dr Buck notified at 0530 in person.
--- NOTE | 2021-03-16 05:49 | PC.NURSE ---
Heparin gtt stopped at [address] Buck.
--- NOTE | 2021-03-16 07:24 | USR_ITS ---
PROCEDURE INFORMATION: Exam: US Retroperitoneal; Complete; Kidneys and Bladder Exam date and time: 03/16/2021 7:24 AM Age: 70 years old Clinical indication: Abnormal findings; Abnormal lab test; Abnormal kidney function lab tests; Additional info: Ian, HTN TECHNIQUE: Imaging protocol: Real-time ultrasound of the retroperitoneum with image documentation. Complete exam focused on the kidneys and bladder. COMPARISON: CT abdomen pelvis con [id number] 03/16/2021 8:38 AM FINDINGS: Right kidney: The right kidney measures 11.6 cm in length. Cortical thickness is 1.3 cm. There is no renal mass, calcification or hydronephrosis. There is a well-defined 2.6 cm mass above the superior pole of the right kidney consistent with the adrenal mass seen on recent CT scan. Left kidney: The left kidney measures 12.1 cm in length. Cortical thickness is 1.0 cm. There is no renal mass, calcification or hydronephrosis. Urinary bladder: Not imaged. US/US renal BI* [id number] IMPRESSION: 1. Normal kidneys. 2. There is a 2.6 cm in the determinate mass in the right adrenal gland. Radiation Dose CTDIVOL = (mGy): DLP = (mGy-cm)
--- NOTE | 2021-03-16 07:37 | PC.NURSE ---
recd. resting quietly,states she is short of breath. b.b.s. have crackles mostly throughout.
[2021-03-16 07:45] LABS: Basophils # 0.1 10^3/uL (0.0-0.1); Basophils % 0.4 %; Hematocrit 29.6 % (37.0-47.0); Hemoglobin 9.9 g/dL (11.5-15.3); Lymphocytes # 0.5 10^3/uL (0.8-4.8); Lymphocytes % 1.6 %; Mean Corpuscular HGB Conc 33.4 g/dL (30.0-36.0); Mean Corpuscular Hemoglobin 29.6 pg (28.0-34.0); Mean Corpuscular Volume 88.6 fl (81-99); Mean Platelet Volume 9.9 fL (7.4-10.4); Monocytes # 0.6 10^3/uL (0.2-0.9); Monocytes % 2.1 %; Neutrophils # 25.87 10^3/uL (1.8-7.7); Nucleated Red Blood Cells % 0 %; Platelet Count 151 10^3/cmm (130-400); Red Blood Count 3.34 10^6/uL (4.1-5.3); Red Cell Distribution Width 13.2 % (12.1-15.1); White Blood Count 29.2 10^3/uL (4.0-10.0)
[2021-03-16 07:51] LABS: Neutrophils % 95.9 %
--- NOTE | 2021-03-16 08:07 | CTR_ITS ---
PROCEDURE INFORMATION: Exam: CT Abdomen And Pelvis Without Contrast Exam date and time: 03/16/2021 8:07 AM Age: 70 years old Clinical indication: Abdominal pain; Additional info: Adrenal mass TECHNIQUE: Imaging protocol: Computed tomography of the abdomen and pelvis without contrast. Radiation optimization: All CT scans at this facility use at least one of these dose optimization techniques: automated exposure control; mA and/or kV adjustment per patient size (includes targeted exams where dose is matched to clinical indication); or iterative reconstruction. COMPARISON: CT chest wo con [id number] 03/15/2021 9:49 PM RADIATION DOSE METRICS: Total DLP (mGy-cm): 1397.15 FINDINGS: Lungs: There is bibasilar atelectasis and infiltration especially on the right side. Pleural spaces: There is stable loculated moderate right pleural effusion and minimal left pleural effusion. Liver: Normal. No mass. Gallbladder and bile ducts: Normal. No calcified stones. No ductal dilation. Pancreas: Normal. No ductal dilation. Spleen: Normal. No splenomegaly. Adrenal glands: There is a 3.0 cm isodense mass in the right adrenal gland. This is not fully evaluated on this CT scan due the lack of IV contrast. The left adrenal gland is normal. Kidneys and ureters: Normal. No hydronephrosis. Stomach and bowel: The there is mild sigmoid diverticulosis but no evidence of acute diverticulitis. There is no bowel obstruction or dilatation. Appendix: No evidence of appendicitis. Intraperitoneal space: Unremarkable. No free air. No significant fluid collection. Vasculature: There is calcification of the aorta but no aneurysm. There is calcification at the origins of the mesenteric and renal arteries with stenosis. Lymph nodes: Unremarkable. No enlarged lymph nodes. Urinary bladder: Unremarkable as visualized. Reproductive: Unremarkable as visualized. Bones/joints: Chronic degenerative changes are present in the spine with joint space narrowing sclerosis and osteophytes. There is prominent arthritic change in the right sacroiliac joint. Soft tissues: Unremarkable. CT/CT abdomen pelvis wo con [id number] IMPRESSION: 1. There is a 3.0 cm isodense right adrenal mass. This is not fully evaluated due the lack of IV contrast. Dedicated CT scan of the adrenal glands with and without contrast or chemical shift MRI is advised. (Reference: Joseph-Beard) 2. Atherosclerotic calcified aorta with calcification and stenosis at the origins of the mesenteric and renal arteries. 3. Mild diverticulosis. 4. No acute abnormalities are seen in the abdomen and pelvis. COMMENTS: Consistent with the [employer]'s Incidental Findings Committee white paper (J Am Janie Radiol 2017): For any incidental adrenal lesion greater than 1 cm but less than 4 cm classified in this report as benign, likely benign, or containing fat (including classification as an adenoma or myelolipoma), no follow-up imaging is recommended per consensus recommendations based on imaging criteria. Further lab evaluation could be pursued if warranted based on clinical findings. REFERENCES: Morenita PALACIO, et al. Management of Incidental Adrenal Masses: A White Paper of the ACR Incidental Findings Committee. J Am Janie Radiol. 2017;14(8):2423-1382. Radiation Dose CTDIVOL = (mGy): DLP = 1397.15 (mGy-cm)
--- NOTE | 2021-03-16 08:07 | MRR_ITS ---
PROCEDURE INFORMATION: Exam: MR Head Without Contrast Exam date and time: 03/16/2021 8:07 AM Age: 70 years old Clinical indication: Other: Pres verses CVA; Additional info: CVA vs pres TECHNIQUE: Imaging protocol: MR of the head without contrast. COMPARISON: CT head wo con* [id number] 03/16/2021 5:07 AM FINDINGS: Brain: There are innumerable foci of abnormal signal intensity on the diffusion-weighted scans in the temporoparietal occipital lobes and also in the cerebellum and thalami bilaterally. These are consistent with numerous acute infarcts most likely embolic in nature. There is no intracranial hemorrhage. There is moderate generalized chronic atrophy with prominence of the ventricles and sulci. Scattered chronic white matter ischemic changes are present with scattered small white matter signal intensities. Cerebral ventricles: The ventricles are prominent due to chronic atrophy. Bones/joints: Unremarkable. Paranasal sinuses: Normal as visualized. No acute sinusitis. Mastoid air cells: Normal as visualized. No mastoid effusion. Orbital cavity: Unremarkable. Soft tissues: Unremarkable. MR/MR head wo con* [id number] IMPRESSION: There are innumerable bilateral foci of abnormal signal on the diffusion-weighted scans in the temporoparietal occipital lobes, the cerebellum and thalami consistent with numerous small nonhemorrhagic acute infarcts. These are most likely embolic in nature. Radiation Dose CTDIVOL = (mGy): DLP = (mGy-cm)
[2021-03-16 08:29] LABS: Alanine Aminotransferase 31 U/L (0-33); Albumin Level 3.2 g/dL (3.5-5.2); Alkaline Phosphatase 136 IU/L (35-105); Anion Gap 21.9 (5-19); Aspartate Amino Transferase 30 U/L (0-32); Blood Urea Nitrogen 68 mg/dL (8-23); Calcium 9.3 mg/dL (8.5-10.5); Carbon Dioxide 23 mmol/L (22-29); Chloride 88 mmol/L (98-107); Globulin 3.4 g/dL (1.3-4.6); Glomerular Filtration Rate 11.1 mL/min (90-130); Glucose 141 mg/dL (65-115); Osmolality Calculated 290 mOsm/kg (285-295); Potassium 3.9 mmol/L (3.5-5.1); Sodium 129 mmol/L (136-145); Total Bilirubin 0.6 mg/dL (0.15-1.2); Total Protein 6.6 g/dL (6.6-8.7)
[2021-03-16] MEDS: budesonide 0.5 mg/2 mL Neb INHALATION ×2 (08:58→20:05)
[2021-03-16] MEDS: pantoprazole DR 40 mg Tablet PO (09:06)
[2021-03-16] MEDS: aspirin 81 mg EC Tablet PO (09:06)
[2021-03-16] MEDS: FUROsemide 10 mg/mL SDV 4mL 40 MG IVP (09:07)
[2021-03-16] MEDS: carvedilol 25 mg Tablet PO ×3 (09:09→21:02)
[2021-03-16 09:30] LABS: Potassium, Radom Urine 51 mmol/L; Urine Random Chloride 38 mmol/L; Urine Random Sodium 38 mmol/L
[2021-03-16] MEDS: doxycycline 100 MG in sodium chloride 0.9% (plus) 100 ML IV ×2 (09:55→21:02)
[2021-03-16 10:01] LABS: Glucose Urine UA Norm (Normal); Ketones Urine Negative (Negative); Protein Urine 1+ (Negative); Urine Color Yellow (Yellow); pH Urine 5 (5-7)
[2021-03-16 10:02] LABS: Add Urine Microscopic? YES; Bilirubin Urine Neg (Negative); Blood Urine 2+ (Negative); Leukocyte Esterase Urine 2+ (Negative); Nitrate Urine Negative (Negative); Urine Appearance Hazy (CLEAR); Urobilinogen Urine Norm (Negative)
[2021-03-16 10:03] LABS: Bacteria Urine 2+ /hpf; Squamous Epithelial Cell Urine 15-25 /hpf (0-5); WBC Urine 15-25 /hpf (0-5)
[2021-03-16 10:04] LABS: Add Urine Culture? No; Mucus Urine TRACE /hpf
--- NOTE | 2021-03-16 10:59 | PC.NURSE ---
daughter notified of testing for covid and visiting restrictions and results of somee test
--- NOTE | 2021-03-16 12:04 | PM.CONSULT ---
Providers/Reason For Consult Consulting Physician/Specialty*: Nephrology Reason for Consult*: Eval for DEBRA Attending Physician: Camilo Hylton MD History of Present Illness History of Present Illness Thank you for consultation, today had the pleasure reviewing this pleasant 70-year-old female for evaluation and management of acute kidney injury. She presented to our facility last night, with symptoms of cough, sputum production with blood streaking, shortness of breath. Initially on evaluation her oxygen saturations were down to 83% with ambulation and she was subsequently started on several oxygen. Chest x-ray demonstrated right lower zone pneumonia and she has been started on combination antibiotic therapy. She was seen by her primary care physician her chest x-ray recently we also demonstrating evidence for pneumonia was given Augmentin and Levaquin. Legionella testing is negative. Due to some visual disturbance, CT scan was performed which showed concerns for bilateral ischemic occipital stroke versus pres and an MRI scan is currently pending. Furthermore, D-dimer was elevated, her troponin was also elevated. CT scan of the chest demonstrated diffuse mediastinal lymphadenopathy. Creatinine 3.7 on admission yesterday, 4.0 today. She did receive some Lasix this morning with a good urine output. Urinalysis performed demonstrates a specific gravity 1.01, urine protein 1+, urinary blood 2+, RBCs 5-10, WBCs 15-25, bacteria 2+. Urinary sodium 38. CT scan of the abdomen and pelvis also demonstrated atherosclerosis of the abdominal aorta with apparent narrowing at the origin of the renal arteries. Incidentally noticed was an adrenal mass. No prior history of acute or chronic kidney disease, she is never seen a party plan sales unit advisor or required hemodialysis. No history of blood output obstructive symptoms or urinary incontinence. She currently has a Bermudez catheter in place. Blood pressure has been little elevated following hospitalization. And she has been hemodynamically stable. Over the last 5 years also she has taken naproxen 500 mg twice a day and over the last 9 years she has taken losartan/HCTZ. Review of Systems Narrative: ROS - 12 point review of systems completed per HPI and subjective assessment, this includes Constitutional: Weakness, fatigue Respiratory: SOB on exertion, comfortable at rest CardioVasc: No chest pain, palpitations Gastrointestinal: No nausea, no vomiting Neurological: No seizures, no AMS Derm: No new rashes, lesions or wounds Immunological: No seasonal and no food allergies Meds/Allergies Home Medications and Allergies Home Medications Medication Instructions Recorded Confirmed Last Taken Type albuterol sulfate 90 mcg/actuation 2 puff INHALATION Q6H PRN #8.5 g 03/01/21 03/16/21 Unknown Rx aerosol inhaler ascorbic acid (vitamin C) 1,000 mg 1 g PO DAILY 03/01/21 03/16/21 Unknown History tablet carvedilol 25 mg tablet 25 mg PO BID 90 Days #180 tab 03/01/21 03/16/21 Unknown Rx cholecalciferol (vitamin D3) 25 25 mcg PO DAILY 03/01/21 03/16/21 Unknown History mcg (1,000 unit) capsule furosemide 40 mg tablet 40 mg PO DAILY #90 tab 03/01/21 03/16/21 Unknown Rx gabapentin 300 mg capsule 300 mg PO TID 90 Days #270 cap 03/01/21 03/16/21 Unknown Rx losartan 100 1 tab PO DAILY #90 tab 03/01/21 03/16/21 Unknown Rx mg-hydrochlorothiazide 25 mg tablet magnesium oxide 500 mg capsule 500 mg PO DAILY #90 cap 03/01/21 03/16/21 Unknown Rx naproxen 500 mg tablet 500 mg PO BID 90 Days #180 tab 03/01/21 03/16/21 Unknown Rx niacin 1,000 mg tablet,extended 1,000 mg PO DAILY tab 03/01/21 03/16/21 Unknown History release potassium chloride 20 mEq 20 meq PO DAILY #90 tab 03/01/21 03/16/21 Unknown Rx tablet,extended release tramadol 50 mg tablet 50 mg PO BID PRN #60 tab 03/01/21 03/16/21 Unknown Rx zolpidem 10 mg tablet 10 mg PO .hs #30 tab 03/01/21 03/16/21 Unknown Rx oxygen 4L via NC #1 ea 03/04/21 03/16/21 Unknown Rx levofloxacin 500 mg tablet 500 mg PO DAILY #7 tab 03/14/21 03/16/21 Unknown Rx methylprednisolone 4 mg tablets in See Rx Instructions PO PER PKG DIR 03/14/21 03/16/21 Unknown Rx a dose pack #21 ea aspirin 325 mg PO DAILY 03/16/21 03/16/21 Unknown History Allergies Allergy/AdvReac Type Severity Reaction Status Date / Time amoxicillin [From Augmentin] Allergy ADR-Diarrhe Verified 03/15/21 16:58 a azithromycin Allergy ADR-Diarrhe Verified 03/15/21 16:58 a clavulanic acid Allergy ADR-Diarrhe Verified 03/15/21 16:58 [From Augmentin] a meperidine Allergy ALGY-Hives Verified 03/01/21 14:20 Current Medications Current Medications Generic Name Dose Route Start Last Admin Trade Name Freq PRN Reason Stop Dose Admin Acetaminophen 650 mg 03/15/21 21:32 03/16/21 00:33 Acetaminophen 325 Mg Tablet PO 650 mg Q6H PRN Administration Mild/Mod Pain Or Temp >/= 101 Albuterol/Ipratropium 3 ml 03/15/21 21:30 03/16/21 08:58 Ipratropium-Albuterol 3 Ml Neb INHALATION 3 ml Q6H.RESPIRATORY MARIAM Administration Aspirin 81 mg 03/16/21 09:00 03/16/21 09:06 Aspirin 81 Mg Ec Tablet PO 81 mg DAILY MARIAM Administration Budesonide 0.5 mg 03/16/21 08:00 03/16/21 08:58 Budesonide 0.5 Mg/2 Ml Neb INHALATION 0.5 mg BID.RESPIRATORY MARIAM Administration Carvedilol 25 mg 03/16/21 09:00 03/16/21 09:10 Carvedilol 25 Mg Tablet PO 25 mg BID@0900,2100 MARIAM Administration Heparin Sodium/Sodium Chloride 25,000 unit in 500 mls @ 0 mls/hr 03/15/21 21:15 03/16/21 06:40 Heparin Drip IV 13.98 unit/kg/hr .Q0M MARIAM 26 mls/hr Titration Protocol Per Protocol Vancomycin HCl 1,000 mg/ 250 mls @ 250 mls/hr 03/15/21 21:30 03/16/21 01:20 Sodium Chloride IV Infused Q48H MARIAM Infusion Protocol Doxycycline Hyclate 100 mg/ 100 mls @ 100 mls/hr 03/16/21 09:00 03/16/21 09:55 Sodium Chloride IV 100 mls/hr Q12H MARIAM Administration Protocol Pantoprazole Sodium 40 mg 03/16/21 09:00 03/16/21 09:[address] 40 Mg Tablet PO 40 mg DAILY MARIAM Administration PFSH Acute PFSH: Medical History A-fib 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 Neuropathy Vitamin D deficiency Surgical History History of dilation and curettage History of surgery on wrist 2002 History of total hysterectomy Social History Smoking and tobacco status: former smoker Quit status (tobacco): has quit using tobacco Year quit tobacco: 1999 Former quit date comment: 2 x 30 yr Second hand smoke exposure: Yes Alcohol intake: current Alcohol intake frequency: holidays/special occasions only Caregiver/support person: Yes Lives independently: No Household members: family Marital status: service: No Current occupational status: retired History of recent travel: No Current gender identity: Female Special colten needs: No Agree to transfusion: Yes Vitals/I&O/Wt Last Vital Signs Temp 97.3 F L 03/16/21 04:00 Pulse 88 03/16/21 09:06 Resp 22 H 03/16/21 08:58 BP 168/103 03/16/21 05:45 Pulse Ox 90 03/16/21 08:58 03/15/21 03/16/21 03/16/21 22:59 06:59 14:59 Intake Total 1613.367 / 1613.367 Output Total 300 / 300 Balance 1313.367 / 1313.367 Weight last 48 hrs Weight 91.626 kg Weight 92.986 kg Physical Exam Narrative: EXAM NARRATIVE: Constitutional: Awake, comfortable HEENT: Dry mucosa, no jvp, non icteric Lungs: Bilaterally coarse rales CVS: S1 S2, no murmurs Abdo: Soft, BS ok Ext 4: Minimal edema, peripheral perfusion with no cyanosis Neurological: Grossly non-focal Data Micro: Micro: Microbiology 03/15/21 23:10 Bacterial Antigens - Final Urine,Voided 03/15/21 23:10 Legionella Urinary Antigen - Final Urine,Voided 03/15/21 20:55 Blood Culture - Pr eliminary Blood SPECIMEN [facility] 03/15/21 20:24 Blood Culture - Pr eliminary Blood SPECIMEN [facility] A&P Additional A&P Information 1. Acute renal failure Differential diagnosis for this includes sepsis secondary to pneumonia leading to inflammatory cytokine mediated acute tubular injury in the setting of decreased glomerular pressure from effects of both ARB and anti-inflammatories. Also acute vasculitis (ie GPA/MPA) is not excluded given that the urine is active (although bacteriuria is also seen). We will give gentle IV hydration with lactated Ringer's at 83.3 mL/h Empirically treat for vasculitis until this is excluded and I will give Solu-Medrol 1 g IV daily x3 days If renal function does not recover, depending on the results of serology, we may consider renal biopsy. No additional renal imaging is required Work-up will include ANCA, ALISSA, complement levels, hepatitis panel Strict I's and O's No indication for renal replacement therapy at this time Dose medication for GFR less than 30 mL/min. 2. Chemistry Minor noncritical aberration of symptoms including hyponatremia. We will continue to monitor closely. 3. Hypertension Blood pressure is fluctuant, down as low as 120 systolic up to 170 systolic. Of note we do see evidence of renal artery stenosis on the CT scan. At this time no need to pursue renal artery angiography. Continue Coreg monotherapy, will add hydralazine if necessary. 4. Apparent pneumonia Sputum and blood culture sent and pending, on combination of Primaxin and vancomycin. Vanco dosing, trough 15-20. 5. AMS, blurry vision MRI scan pending of the brain, rule out CVA versus PRES. Thank you for consultation, it is a pleasure to follow these cases with you Exam and interview performed with aid of bedside RN using telemedicine Time spent 20 min inc > 50% of time in face to face counseling Jaswinder Trinidad MD Nephrology [phone] Coding Level of Care Code Acute Sledger for [employer]
[2021-03-16] MEDS: LORazepam 2 mg/mL INJ 1 mL 0.5 MG IVP ×3 (13:38→17:47)
[2021-03-16] MEDS: lactated ringers 1,000 ML 83.3 ML IV (13:52)
[2021-03-16 15:33] LABS: Amphetamines Screen Urine Negative (Negative); Barbiturates Screen Urine Negative (Negative); Benzodiazepines Screen Urine Negative (Negative); Cocaine Screen Urine Negative (Negative); Opiate Screen Urine Positive (Negative); PCP Screen Urine Negative (Negative); THC Screen Urine Negative (Negative)
[2021-03-16 15:53] LABS: Urea Nitrogen,Urine Random 298 mg/dL
[2021-03-16 16:06] LABS: Urine Creatinine 76 mg/dL (28-217)
[2021-03-16 16:15] LABS: Urine Protein Random 47 mg/dL
[2021-03-16 17:02] LABS: Eosinophil Urine No Eosinophils Seen; Urine Eosinophil Count 0 (0-0)
[2021-03-16 17:12] LABS: INR 1.45 (0.8-1.2)
[2021-03-16 17:13] LABS: Fibrinogen 813 mg/dL (174-498)
[2021-03-16 17:14] LABS: Partial Thromboplastin Time 69.9 SECONDS (23.9-36.7)
[2021-03-16 17:20] LABS: Creatine Phosphokinase 43 U/L (26-192)
[2021-03-16 17:24] LABS: Procalcitonin 35.98 ng/mL (0-0.5)
--- NOTE | 2021-03-16 17:27 | P.PN_ITS ---
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 to [place], she has not seen a physician in over 2 years, denies a history of diabetes, no history of CVA, no history of GA, Vitals/I&O/Wt Last Vital Signs Temp 97.3 F L 03/16/21 04:00 Pulse 80 03/16/21 14:35 Resp 16 03/16/21 14:34 BP 132/68 03/16/21 14:30 Pulse Ox 94 03/16/21 14:34 03/16/21 03/16/21 03/16/21 06:59 14:59 22:59 Intake Total 1613.367 / 1613.367 260 / 260 Output Total 300 / 300 30 / 30 Balance 1313.367 / 1313.367 230 / 230 Weight last 48 hrs Weight 91.626 kg Weight 92.986 kg Physical Exam Const: COMMON NORMALS: no acute distress ORIENTATION/CONSCIOUSNESS: Yes awake, Yes oriented to person and Yes oriented to place; not oriented to time Resp: COMMON NORMALS: normal respiratory effort, No retractions, No use of accessory muscles and clear to auscultation bilaterally AUSCULTATION: clear to auscultation bilaterally Cardio: COMMON NORMALS: regular rate, regular rhythm, S1 normal heart sound present and S2 normal heart sound present RATE: regular rate RHYTHM: regular rhythm HEART SOUNDS: S1 normal heart sound present and S2 normal heart sound present GI: COMMON NORMALS: Normal to inspection, nondistended, normoactive bowel sounds present, Soft to palpation and non-tender PALPATION: Yes Soft to palpation Extremity: COMMON NORMALS: no pedal edema Neuro: SENSORIUM/ORIENTATION: Yes oriented to person, Yes oriented to place and No oriented to time Psych: COMMON NORMALS: mental status grossly normal Urinary Catheter Management^: Bermudez: Cath Placed During This Visit: yes Urinary Catheter Date of Insertion: 03/16/21 Urinary Catheter Time of Insertion: 13:59 Data : 03/16/21 07:33 03/16/21 07:33 Micro: Microbiology 03/15/21 22:15 MRSA Culture - Final Nose 03/15/21 23:10 Bacterial Antigens - Final Urine,Voided 03/15/21 23:10 Legionella Urinary Antigen - Final Urine,Voided 03/15/21 20:55 Blood Culture - Preliminary Blood SPECIMEN COLLECTED 03/15/21 20:24 Blood Culture - Preliminary Blood SPECIMEN COLLECTED A&P Assessment and plan (1) Sepsis: Status: Acute Qualifiers: Sepsis type: sepsis due to unspecified organism Sepsis acute organ dysfunction status: with acute organ dysfunction Severe sepsis acute organ dysfunction type: acute renal failure Acute renal failure type: unspecified Severe sepsis shock status: without septic shock Qualified Code(s): A41.9 - Sepsis, unspecified organism; R65.20 - Severe sepsis without septic shock; N17.9 - Acute kidney failure, unspecified (2) Community acquired pneumonia: Status: Acute Qualifiers: Laterality: right Lung location: lower lobe of lung Qualified Code(s): J18.9 - Pneumonia, unspecified organism (3) Elevated troponin: Status: Acute (4) Hypertension: Status: Acute Qualifiers: Hypertension type: unspecified Qualified Code(s): I10 - Essential (primary) hypertension (5) A-fib: Status: Acute Qualifiers: Atrial fibrillation type: unspecified Qualified Code(s): I48.91 - Unspecified atrial fibrillation (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 (7) Respiratory failure with hypoxia: Status: Acute Qualifiers: Chronicity: acute Qualified Code(s): J96.01 - Acute respiratory failure with hypoxia (8) Acute kidney injury: Status: Acute (9) Acute CVA (cerebrovascular accident): Status: Acute (10) Adrenal mass: Status: Acute (11) NSTEMI (non-ST elevated myocardial infarction): Status: Acute (12) Hyponatremia: Status: Acute (13) Anemia: Status: Acute Additional A&P Information Patient with a notable past medical history of hypertension, May Thurner syndrome, atrial fibrillation not currently on any anticoagulation presenting with worsening dyspnea increasing cough expectoration and hemoptysis at least over the last 3 weeks, without improvement on outpatient course of Augmentin on levofloxacin. Admit to ICU in view of sepsis and multiorgan failure Acute CVA: -Currently denies any focal neurologic deficits, no blurry vision, symptoms of blurry vision started over 48 hours ago, out of TPA window, NIH stroke scale 0 -MRI of the brain shows: There are innumerable bilateral foci of abnormal signal on the diffusion-weighted scans in the temporoparietal occipital lobes, the cerebellum and thalami consistent with numerous small nonhemorrhagic acute infarcts. These are most likely embolic in nature. -Has a history of atrial fibrillation not on anticoagulation, I am unsure why, patient is unsure why -Does have evidence of sepsis secondary to pneumonia -Did consult neurologist to [facility], agreed with aspirin, statin, heparin for anticoagulation -Likely embolic strokes for underlying atrial fibrillation, possible sepsis related Plan: -Strokes look over 48 hours old -Blood pressure control -Heparin drip -Neurochecks -NIH stroke scale -Gentle IV hydration Sepsis: Meets criteria with elevated white blood cell count, tachycardia tachypnea. Al so additionally with signs of endorgan failure including hypoxic respiratory failure, acute kidney injury. Subjective fever and chills also reported at home, currently afebrile since presentation into the ER. Fluid supplementation not initiated as patient is clinically euvolemic, elevated BNP 27,000 may have underlying CHF additionally. Blood culture taken prior to initiation of antibiotics Start empiric antibiotic coverage with Zosyn, vancomycin and doxycycline for atypical coverage All antibiotics to be renally dosed. Preliminarily source appears to be worsening pneumonia. Chest x-ray with right lower lobe infiltrate. supplemental 02 to keep saturation >92% Duoneb and budesonide inhalation, hold off on steroids for now COVID, MRSA PCR, sputum gram stain and cx, influenza ag negative unvaccinated for COVID and Flu # Pneumonia: clinically worsening as above. Abx coverage as above -Also with elevated D dimer, worsening dyspnea, and h/o May thruner syndrome, high suspicion for DVT/PE. Cannot obtain CTA chest due to DEBRA. Check LE venous duplex and echocardiogram for right heart strain, right side heart failure . Start presumptive anticoagulation with heparind drip # elevated troponin : May be related to NSTEMI vs posisble PE. Echocardiogram ordered to assess RWMA, systolic and distaolic function. Heparin a/c presumptively Continue ASA 81mg po daily Continue atorvastatin Echocardiogram as above # DEBRA : Cr up to 4.0, up from 1.3 on 03/11. No past h/o CKD per patient Check bladder scan, renal US, urine lytes Renally dose all abx Hold NSAIDs, HCTZ and losartan Continue carvedilol Consult nephrology # A fib, currently rate controlled. Continue Coreg. Patient not on a/c as outpatient # Transaminitis : likely from sepsis. Abdominal imaging if continues to worsen. Normal T.bili, mild elevation ALP to 117. Anemia, baseline hemoglobin unknown, continue Protonix 40 IV twice daily History of renal mass, known, continue to monitor, CT scan abdomen pelvis Attestations Medical Necessity Statement*: Patient course hospitalization for acute CVA, acute kidney injury, respiratory failure, hyponatremia, possible pulmonary embolism, NSTEMI Coding Level of Care Code Acute Search Engine Optimization Strategist for [facility] Fwd Diagnoses Sepsis A41.9; R65.20; N17.9 Sepsis type: sepsis due to unspecified organism Sepsis acute organ dysfunction status: with acute organ dysfunction Severe sepsis acute organ dysfunction type: acute renal failure Acute renal failure type: unspecified Severe sepsis shock status: without septic shock Community acquired pneumonia J18.9 Laterality: right Lung location: lower lobe of lung Elevated troponin R77.8 Hypertension I10 Hypertension type: unspecified A-fib I48.91 Atrial fibrillation type: unspecified May-Thurner syndrome I87.1 Respiratory failure with hypoxia J96.01 Chronicity: acute Acute kidney injury N17.9 Acute CVA (cerebrovascular accident) I63.9 Adrenal mass E27.8 NSTEMI (non-ST elevated myocardial infarction) I21.4 Hyponatremia E87.1 Anemia D64.9
[2021-03-16 17:29] LABS: Hepatitis A Antibody IgM Non-Reactive (Nonreactive); Hepatitis B Core IgM Non-Reactive (Nonreactive); Hepatitis B Surface Antigen Non-Reactive (Nonreactive); Hepatitis C Virus Antibody Non-Reactive (Nonreactive)
[2021-03-16] MEDS: pantoprazole 40 mg SDV IVP (18:59)
--- NOTE | 2021-03-16 19:02 | PC.NURSE ---
[address] gerry fair. difficult to lay flat.
--- NOTE | 2021-03-16 19:02 | PC.NURSE ---
1200 to mri. will use ativan to help pt. lay still.
--- NOTE | 2021-03-16 19:03 | PC.NURSE ---
1324 back from mri. gerry fair. now more sedate after a total of 1 mg of ativan was given.
--- NOTE | 2021-03-16 19:04 | PC.NURSE ---
1500.awakens with tactile and verbal stimulation. has rested most of afternoon.
--- NOTE | 2021-03-16 19:05 | PC.NURSE ---
1800 awakened to tctile stimulation is able to touch her nose. but is weak. oriented to person, place, and time.
[2021-03-16] MEDS: heparin drip 25,000 UNIT/500 ML PREMIX 26 UNIT IV (20:47)
[2021-03-16] MEDS: sucralfate 1 gm Tablet PO (21:01)
[2021-03-16] MEDS: atorvastatin 40 mg Tablet PO (21:02)
--- NOTE | 2021-03-16 21:15 | USCV_ITS ---
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 Venous duplex imaging was performed in bilateral lower extremities. The following venous structures were evaluated: common femoral vein, profunda vein, proximal portion of the greater saphenous vein, superficial femoral vein, and the popliteal vein. In addition, the posterior tibial and peroneal trunk were evaluated. Serial compression, augmentation maneuvers, and spectral Doppler flow evaluation were performed. FINDINGS: No evidence of DVT seen in any vessel visualized at this time. CONCLUSIONS No evidence of DVT in the above-mentioned identifiable veins. Dr Sunil Quan MD [facility] (Electronically Signed) Final Date: 16 March 2021 19:15 S
--- NOTE | 2021-03-16 21:32 | USCV_ITS ---
Juliet Adair Age: 70 Gender: F : 1950 Exam Date: 03/16/2021 09:48 Ordering Phys: Kayy Buck MD Technologist: Romelia Beauchamp Exam Location: [facility] [place] Indication: Evaluate for right heart strain, high probability PE, NSTEMI BP: 168 / 103 HR: 79 Rhythm: Sinus Technical Quality: Adequate MEASUREMENTS (Male / Female) Normal Values 2D ECHO LV Diastolic Diameter PLAX 4.3 cm 4.2 - 5.9 / 3.9 - 5.3 cm LV Systolic Diameter PLAX 3.4 cm LV Chamber Size 4.0 cm IVS Diastolic Thickness 0.8 cm 0.6 - 1.0 / 0.6 - 0.9 cm IVS Systolic Thickness 1.5 cm LVPW Diastolic Thickness 1.0 cm 0.6 - 1.0 / 0.6 - 0.9 cm LVPW Systolic Thickness 1.6 cm RV Chamber Size 2.3 cm LVOT Diameter 1.9 cm LV Ejection Fraction 2D Teich 45.1 % LV Ejection Fraction MOD 2C 57.1 % LV Ejection Fraction 2C AL 59.9 % LA Diameter 3.5 cm LA Width 2.8 cm LA Height 5.4 cm RA Width 2.4 cm RA Height 4.8 cm Aorta at Sinotubular Diameter 2.7 cm M-MODE LV Diastolic Diameter MM 4.5 cm 4.2 - 5.9 / 3.9 - 5.3 cm LV Systolic Diameter MM 3.3 cm LV Ejection Fraction MM Teich 52.0 % IVS Diastolic Thickness MM 1.2 cm 0.6 - 1.0 / 0.6 - 0.9 cm IVS Systolic Thickness MM 1.6 cm LVPW Diastolic Thickness MM 1.5 cm 0.6 - 1.0 / 0.6 - 0.9 cm LVPW Systolic Thickness MM 1.6 cm RV Diastolic Diameter MM 0.7 cm Aortic Annulus Diameter 3.3 cm LA Ao Ratio MM 1.1 MV E Point Septal Separation 0.5 cm DOPPLER AV Peak Velocity 127.0 cm/s LVOT Peak Velocity 101.0 cm/s AV Area Cont Eq vti 2.3 cm squared AV Area Cont Eq pk 2.2 cm squared MV Area PHT 5.0 cm squared Mitral E to A Ratio 1.4 MV E' Velocity 59.0 cm/s Mitral E to MV E' Ratio 11.4 Mitral E to LV E' Lateral Ratio 10.9 Mitral E to LV E' Septal Ratio 12.2 TR Peak Velocity 348.0 cm/s TR Peak Gradient 48.4 mmHg TR Mean Velocity 270.3 cm/s TR Mean Gradient 29.9 mmHg TR Velocity Time Integral 93.5 cm Right Atrial Pressure 10.0 mmHg Pulmonary Artery Systolic Pressu 58.4 mmHg PV Peak Velocity 85.0 cm/s FINDINGS Left Ventricle Normal left ventricular size and systolic function, EF 58 %. No regional wall motion abnormalities. Right Ventricle Normal right ventricular size and systolic function. Right Atrium Mildly increased right atrial size. Left Atrium Mildly increased left atrial size. Mitral Valve Thickened mitral valve. Mild mitral valve regurgitation. Aortic Valve Thickened aortic valve. Tricuspid Valve Moderate tricuspid valve regurgitation. Moderate pulmonary hypertension with a peak pulmonary artery systolic pressure of 58 and a mean pressure of 30 mmHg Pulmonic Valve Trace pulmonary valve regurgitation. Pericardium No pericardial effusion. Aorta Normal aortic annulus size. CONCLUSIONS Normal left ventricular size and systolic function, EF 58 %. No regional wall motion abnormalities. Normal right ventricular size and systolic function. Mild biatrial enlargement. Thickened aortic and mitral valves Moderate tricuspid valve regurgitation. Moderate pulmonary hypertension with a peak pulmonary artery systolic pressure of 58 and a mean pressure of 30 mmHg. Trace pulmonary valve regurgitation. Mild mitral valve regurgitation. There is no pericardial effusion. There are no intracardiac masses. No previous study is available for comparison. Dr Sunil Quan MD [facility] (Electronically Signed) Final Date: 16 March 2021 18:30 S
[2021-03-16 22:31] LABS: Partial Thromboplastin Time 64.3 SECONDS (23.9-36.7)
[2021-03-17] VITALS (39 sets, daily range): BP systolic 96–169; BP diastolic 61–108; PULSE 66–84; RESP 16–31; TEMP 36.1–36.5; O2SAT 86–98
[2021-03-17] MEDS: ipratropium-albuterol 3 mL Neb INHALATION ×4 (03:14→20:47)
[2021-03-17 03:33] LABS: ABG PCO2 35.6 mmHg (35-45); ABG PH Result 7.44 (7.35-7.45); Arterial Blood Gas Hematocrit 28.9 % (37-47); Base Excess ABG 0.4 mmol/L (-2.0-2.0); Blood Gas Allen Test Pos; Blood Gas Sample Site Radial, right; Blood Gas Sample Type Arterial; HCO3 ABG 24.4 mmol/L (22-26); Oxygen Device NC; PO2 ABG 56.1 mmHg (80.0-100.0)
[2021-03-17] MEDS: lactated ringers 1,000 ML 83.3 ML IV (03:56)
[2021-03-17 04:30] LABS: Basophils # 0.1 10^3/uL (0.0-0.1); Basophils % 0.3 %; Eosinophils # 0.4 10^3/uL (0.0-0.8); Eosinophils % 1.8 %; Hematocrit 27.6 % (37.0-47.0); Lymphocytes # 0.6 10^3/uL (0.8-4.8); Lymphocytes % 2.7 %; Mean Corpuscular HGB Conc 32.6 g/dL (30.0-36.0); Mean Corpuscular Hemoglobin 29.1 pg (28.0-34.0); Mean Corpuscular Volume 89.3 fl (81-99); Mean Platelet Volume 10.2 fL (7.4-10.4); Monocytes # 0.6 10^3/uL (0.2-0.9); Monocytes % 2.6 %; Neutrophils # 19.57 10^3/uL (1.8-7.7); Neutrophils % 91.5 %; Nucleated Red Blood Cells % 0 %; Platelet Count 138 10^3/cmm (130-400); Red Blood Count 3.09 10^6/uL (4.1-5.3); Red Cell Distribution Width 13.4 % (12.1-15.1); White Blood Count 21.4 10^3/uL (4.0-10.0)
[2021-03-17 04:54] LABS: Alanine Aminotransferase 22 U/L (0-33); Albumin Level 2.9 g/dL (3.5-5.2); Alkaline Phosphatase 85 IU/L (35-105); Aspartate Amino Transferase 18 U/L (0-32); Blood Urea Nitrogen 69 mg/dL (8-23); Calcium 8.2 mg/dL (8.5-10.5); Carbon Dioxide 21 mmol/L (22-29); Chloride 95 mmol/L (98-107); Globulin 2.9 g/dL (1.3-4.6); Glomerular Filtration Rate 13.4 mL/min (90-130); Glucose 144 mg/dL (65-115); Magnesium 2.6 mg/dL (1.7-2.3); Osmolality Calculated 299 mOsm/kg (285-295); Phosphorus 4.3 mg/dL (2.5-4.5); Sodium 133 mmol/L (136-145); Total Bilirubin 0.5 mg/dL (0.15-1.2); Total Protein 5.8 g/dL (6.6-8.7)
[2021-03-17 04:57] LABS: Anion Gap 20.3 (5-19)
[2021-03-17 04:58] LABS: Potassium 3.3 mmol/L (3.5-5.1)
[2021-03-17 04:59] LABS: Slide Review Slide Review Perform
[2021-03-17 05:03] LABS: NT Pro B Type Natriuretic Pept 14604 pg/mL (0-125); Procalcitonin 19.43 ng/mL (0-0.5)
[2021-03-17 05:14] LABS: Creatine Phosphokinase 30 U/L (26-192)
[2021-03-17 05:26] LABS: Ferritin 1618 ng/mL (15-150)
--- NOTE | 2021-03-17 05:27 | PC.NURSE ---
aPTT collected, unable to run coags at this time, lab states machine is down at the time. Unknown time machine will be back in service. At this time no signs of excessive bleeding noted on patient.
--- NOTE | 2021-03-17 05:37 | PC.NURSE ---
Shift Summary: Patient oxygen requirements increased to 6L NC, continues to have tahcypnic, labored, and shallow breaths when awake. Remains on LR and heparin gtt. NIH:, patient states blurry vision on left eye is still present.
[2021-03-17 05:39] LABS: INR 1.26 (0.8-1.2)
[2021-03-17 05:41] LABS: Fibrinogen 725 mg/dL (174-498)
[2021-03-17 05:44] LABS: D Dimer 2.47 ug/mIFEU (0-0.59)
[2021-03-17] MEDS: pantoprazole 40 mg SDV IVP ×2 (06:01→17:38)
[2021-03-17] MEDS: sucralfate 1 gm Tablet PO ×4 (06:01→20:34)
--- NOTE | 2021-03-17 07:00 | XRR_ITS ---
PROCEDURE INFORMATION: Exam: XR Chest Exam date and time: 03/17/2021 7:00 AM Age: 70 years old Clinical indication: Shortness of breath; Additional info: SOB TECHNIQUE: Imaging protocol: XR of the chest. Views: 1 view. COMPARISON: 1. CT chest wo con [id number] 03/15/2021 9:49 PM 2. CR (CHEST, ) 03/15/2021 6:09:46 PM FINDINGS: Lungs: There are diffuse bilateral interstitial pulmonary infiltrates with airspace consolidation in the right base. This has not significantly changed since the previous chest radiograph and is consistent with pneumonia. Pleural spaces: Unremarkable. No pleural effusion. No pneumothorax. Heart/Mediastinum: The heart is not enlarged. There is widening of the superior mediastinum consistent with adenopathy seen recent CT scan of the chest. Bones/joints: Unremarkable. XR/XR chest 1V portable [id number] IMPRESSION: 1. Stable bilateral pulmonary infiltrates especially in the right base consistent with pneumonia. 2. Superior mediastinal widening consistent with adenopathy seen on recent CT scan. Radiation Dose CTDIVOL = (mGy): DLP = (mGy-cm)
--- NOTE | 2021-03-17 08:02 | P.PN_ITS ---
Subjective Subjective: Interval history: Ms. Adair feels unwell. Requires oxygen has increased from 4 L to 6 L. Very mild global anasarca. I did give intravenous fluid yesterday. Hemodynamics otherwise look stable. Urine output looks pretty reasonable as well. No overt uremic symptoms. Vitals/I&O/Wt Last Vital Signs Temp 97 F L 03/17/21 04:00 Pulse 68 03/17/21 06:00 Resp 20 H 03/17/21 04:00 BP 159/82 03/17/21 04:00 Pulse Ox 92 03/17/21 04:00 03/16/21 03/17/21 03/17/21 22:59 06:59 14:59 Intake Total 914.633 / 4110.385 0056 / 2274.633 Output Total 1300 / 1330 1250 / 2580 Balance -385.367 / -155.367 -150 / -305.367 Weight last 48 hrs Weight 91.626 kg Weight 92.986 kg Physical Exam Narrative: EXAM NARRATIVE: Constitutional: Awake, comfortable HEENT: Dry mucosa, no jvp, non icteric Lungs: Bilaterally coarse rales CVS: S1 S2, no murmurs Abdo: Soft, BS ok Ext 4: Minimal edema, peripheral perfusion with no cyanosis Neurological: Grossly non-focal Urinary Catheter Management^: Bermudez: Cath Placed During This Visit: yes Reason for Continuing Indwelling Catheter: Accurate Measurement of Urinary Output in Critically Ill Patients Urinary Catheter Date of Insertion: 03/16/21 Urinary Catheter Time of Insertion: 13:59 Data : 03/17/21 04:00 03/17/21 04:00 Micro: Microbiology 03/15/21 20:55 Blood Culture - Preliminary Blood NEGATIVE TO DATE 03/15/21 20:24 Blood Culture - Preliminary Blood NEGATIVE TO DATE 03/15/21 22:15 MRSA Culture - Final Nose 03/15/21 23:10 Bacterial Antigens - Final Urine,Voided 03/15/21 23:10 Legionella Urinary Antigen - Final Urine,Voided A&P Additional A&P Information 1. Acute renal failure Differential diagnosis for this includes sepsis secondary to pneumonia leading to inflammatory cytokine mediated acute tubular injury in the setting of decreased glomerular pressure from effects of both ARB and anti-inflammatories. Also acute vasculitis (ie GPA/MPA) is not excluded given that the urine is active (although bacteriuria is also seen). Embolic showering to the brain noted on the MRI also raising the possiblity of cholesterol embolic disease in the kid ren. Given high right-sided pressures seen on echocardiogram and mild anasarca as well as increasing oxygen needs I will stop the intravenous fluid today. Defer diuretics for the time being, however, have a low threshold for using them if she starts to desaturate later on this afternoon. Continue with steroids for the time being, ANCA levels pending, repeat urinalysis. Defer renal biopsy for the time being pending serology. Creatinine slightly improved today more consistent with pneumonia than this being from acute vasculitis and so I doubt we will need to do aggressive immunosuppression/kidney biopsy etc. Strict I's and O's No indication for renal replacement therapy at this time Dose medication for GFR less than 30 mL/min. 2. Chemistry Minor noncritical aberration; will replace potassium 3. Hypertension Blood pressure is fluctuant but stable. 4. Apparent pneumonia Sputum and blood culture sent and pending, on combination of Primaxin and vancomycin. Vanco dosing, trough 15-20. 5. AMS, blurry vision MRI scan pending of the brain appreciated showing innumerable bilateral foci of abnormal signal on the diffusion-weighted scans in the temporoparietal occipital lobes, the cerebellum and thalami consistent with numerous small nonhemorrhagic acute infarcts. These are most likely embolic in nature. No thrombus seen on echo, but high right sided pressure, ?? bubble study, ?? 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
[2021-03-17] MEDS: carvedilol 25 mg Tablet PO ×2 (08:26→20:34)
[2021-03-17] MEDS: doxycycline 100 MG in sodium chloride 0.9% (plus) 100 ML IV ×2 (08:26→20:41)
[2021-03-17] MEDS: aspirin 81 mg EC Tablet PO (08:26)
[2021-03-17] MEDS: budesonide 0.5 mg/2 mL Neb INHALATION ×2 (08:28→20:47)
[2021-03-17] MEDS: LORazepam 2 mg/mL INJ 1 mL 0.5 MG IVP (09:32)
[2021-03-17] MEDS: FUROsemide 10 mg/mL SDV 4mL 40 MG IVP (09:32)
[2021-03-17 13:31] LABS: Add Urine Culture? No; Bacteria Urine 1+ /hpf; Bilirubin Urine Neg (Negative); Blood Urine Neg (Negative); Glucose Urine UA Norm (Normal); Ketones Urine Negative (Negative); Leukocyte Esterase Urine Negative (Negative); Nitrate Urine Negative (Negative); Protein Urine Neg (Negative); Specific Gravity, Urine 1.015 (1.005-1.030); Squamous Epithelial Cell Urine 0-4 /hpf (0-5); Urine Appearance Clear (CLEAR); Urine Color Straw (Yellow); Urobilinogen Urine Norm (Negative); WBC Urine 0-4 /hpf (0-5); pH Urine 5 (5-7)
[2021-03-17] MEDS: heparin drip 25,000 UNIT/500 ML PREMIX 26 UNIT IV (13:32)
--- NOTE | 2021-03-17 14:16 | PM.PN ---
Subjective Subjective: Interval history: Patient was seen this morning, she is alert to person, to place, not to time, she does follow commands, denies a headache, no blurry vision, no weakness, no paresthesias, no changes in her vision, she complains of shortness of breath this morning, is on 7 L, Vitals/I&O/Wt Last Vital Signs Temp 97.7 F 03/17/21 08:00 Pulse 72 03/17/21 13:30 Resp 27 H 03/17/21 13:30 BP 162/91 03/17/21 09:00 Pulse Ox 92 03/17/21 13:30 03/16/21 03/17/21 03/17/21 22:59 06:59 14:59 Intake Total 914.633 / 3550.884 3262 / 2274.633 555.5 / 555.5 Output Total 1300 / 1330 1250 / 2580 1000 / 1000 Balance -385.367 / -155.367 -150 / -305.367 -444.5 / -444.5 Weight last 48 hrs Weight 91.626 kg Weight 92.986 kg Physical Exam Const: COMMON NORMALS: no acute distress and patient oriented x3 Resp: COMMON NORMALS: normal respiratory effort, No retractions, No use of accessory muscles and clear to auscultation bilaterally AUSCULTATION: clear to auscultation bilaterally Cardio: COMMON NORMALS: regular rate, regular rhythm, S1 normal heart sound present and S2 normal heart sound present RATE: regular rate RHYTHM: regular rhythm HEART SOUNDS: S1 normal heart sound present and S2 normal heart sound present GI: COMMON NORMALS: Normal to inspection, nondistended, normoactive bowel sounds present, Soft to palpation and non-tender PALPATION: Yes Soft to palpation Extremity: COMMON NORMALS: no pedal edema Neuro: COMMON NORMALS: patient oriented x3 Psych: COMMON NORMALS: mental status grossly normal Urinary Catheter Management^: Bermudez: Cath Placed During This Visit: yes Reason for Continuing Indwelling Catheter: Accurate Measurement of Urinary Output in Critically Ill Patients Urinary Catheter Date of Insertion: 03/16/21 Urinary Catheter Time of Insertion: 13:59 Data : 03/17/21 04:00 03/17/21 04:00 Micro: Microbiology 03/15/21 20:55 Blood Culture - Preliminary Blood NEGATIVE TO DATE 03/15/21 20:24 Blood Culture - Preliminary Blood NEGATIVE TO DATE 03/15/21 22:15 MRSA Culture - Final Nose 03/15/21 23:10 Bacterial Antigens - Final Urine,Voided 03/15/21 23:10 Legionella Urinary Antigen - Final Urine,Voided A&P Assessment and plan (1) Sepsis: Status: Acute Qualifiers: Sepsis type: sepsis due to unspecified organism Sepsis acute organ dysfunction status: with acute organ dysfunction Severe sepsis acute organ dysfunction type: acute renal failure Acute renal failure type: unspecified Severe sepsis shock status: without septic shock Qualified Code(s): A41.9 - Sepsis, unspecified organism; R65.20 - Severe sepsis without septic shock; N17.9 - Acute kidney failure, unspecified (2) Community acquired pneumonia: Status: Acute Qualifiers: Laterality: right Lung location: lower lobe of lung Qualified Code(s): J18.9 - Pneumonia, unspecified organism (3) Elevated troponin: Status: Acute (4) Hypertension: Status: Acute Qualifiers: Hypertension type: unspecified Qualified Code(s): I10 - Essential (primary) hypertension (5) A-fib: Status: Acute Qualifiers: Atrial fibrillation type: unspecified Qualified Code(s): I48.91 - Unspecified atrial fibrillation (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 (7) Respiratory failure with hypoxia: Status: Acute Qualifiers: Chronicity: acute Qualified Code(s): J96.01 - Acute respiratory failure with hypoxia (8) Acute kidney injury: Status: Acute (9) Acute CVA (cerebrovascular accident): Status: Acute (10) Adrenal mass: Status: Acute (11) NSTEMI (non-ST elevated myocardial infarction): Status: Acute (12) Hyponatremia: Status: Acute (13) Anemia: Status: Acute Additional A&P Information Patient with a notable past medical history of hypertension, May Thurner syndrome, atrial fibrillation not currently on any anticoagulation presenting with worsening dyspnea increasing cough expectoration and hemoptysis at least over the last 3 weeks, without improvement on outpatient course of Augmentin on levofloxacin. Admit to ICU in view of sepsis and multiorgan failure Acute CVA: -Currently denies any focal neurologic deficits, no blurry vision, symptoms of blurry vision started over 48 hours ago, out of TPA window, NIH stroke scale 0 -MRI of the brain shows: There are innumerable bilateral foci of abnormal signal on the diffusion-weighted scans in the temporoparietal occipital lobes, the cerebellum and thalami consistent with numerous small nonhemorrhagic acute infarcts. These are most likely embolic in nature. -Has a history of atrial fibrillation not on anticoagulation, had an ablation procedure in 2007 -Does have evidence of sepsis secondary to pneumonia -Did consult neurologist to [facility], agreed with aspirin, statin, heparin for anticoagulation -Likely embolic strokes for underlying atrial fibrillation, possible sepsis related Plan: -Strokes look over 48 hours old -Blood pressure control -Heparin drip -Neurochecks -NIH stroke scale -We will order a bubble contrast echo for Eisenmenger syndrome Respiratory failure with hypoxia -Currently on 7 L -Continue nebulizer treatments -Secondary to pneumonia -Possible underlying pulmonary emboli, cannot undergo CT angiogram due to creatinine, cannot undergo a ventilation/perfusion scan currently under COVID-19 investigation, once Covid 19 PCR negative undergo a ventilation/perfusion scan -Fluid overload secondary to pulmonary edema, elevated BNP, CHF, pulmonary hypertension -Continue broad-spectrum antibiotics -1 dose of Lasix today -Continue heparin drip -Hold off on fluids for now Pulmonary hypertension, pulmonary arterial pressure 50 mmHg Sepsis: Meets criteria with elevated white blood cell count, tachycardia tachypnea. Also additionally with signs of endorgan failure including hypoxic respiratory failure, acute kidney injury. Subjective fever and chills also reported at home, currently afebrile since presentation into the ER. Fluid supplementation not initiated as patient is clinically euvolemic, elevated BNP 27,000 may have underlying CHF additionally. Blood culture taken prior to initiation of antibiotics Start empiric antibiotic coverage with Zosyn, vancomycin and doxycycline for atypical coverage All antibiotics to be renally dosed. Preliminarily source appears to be worsening pneumonia. Chest x-ray with right lower lobe infiltrate. supplemental 02 to keep saturation >92% Duoneb and budesonide inhalation, hold off on steroids for now COVID, MRSA PCR, sputum gram stain and cx, influenza ag negative unvaccinated for COVID and Flu # Pneumonia: clinically worsening as above. Abx coverage as above -Also with elevated D dimer, worsening dyspnea, and h/o May thruner syndrome, high suspicion for pulmonary embolism. Cannot obtain CTA chest due to DEBRA. Check LE venous duplex negative for DVT and echocardiogram for right heart strain no significant heart strain, right side heart failure . Start presumptive anticoagulation with heparind drip Currently cannot undergo a ventilation/perfusion scan as under COVID-19 precautions, once COVID-19 comes back negative will order ventilation/perfusion scan # elevated troponin : May be related to NSTEMI vs posisble PE. Echocardiogram Normal left ventricular size and systolic function, EF 58 %. No regional wall motion abnormalities. Normal right ventricular size and systolic function. Mild biatrial enlargement. Thickened aortic and mitral valves Moderate tricuspid valve regurgitation. Moderate pulmonary hypertension with a peak pulmonary artery systolic pressure of 58 and a mean pressure of 30 mmHg. Trace pulmonary valve regurgitation. Mild mitral valve regurgitation. There is no pericardial effusion. There are no intracardiac masses. Heparin a/c presumptively Continue ASA 81mg po daily Continue atorvastatin # DEBRA : Cr up to 3.4, up from 1.3 on 03/11. No past h/o CKD per patient Check bladder scan, renal US, urine lytes Renally dose all abx Hold NSAIDs, HCTZ and losartan Continue carvedilol Consult nephrology # A fib, status post ablation, currently rate controlled. Continue Coreg. Patient not on a/c as outpatient # Transaminitis : likely from sepsis. Abdominal imaging if continues to worsen. Normal T.bili, mild elevation ALP to 117. Anemia, baseline hemoglobin unknown, continue Protonix 40 IV twice daily History of adrenal mass, known, continue to monitor, CT scan abdomen pelvis 1. There is a 3.0 cm isodense right adrenal mass. This is not fully evaluated due the lack of IV contrast. Dedicated CT scan of the adrenal glands with and without contrast or chemical shift MRI is advised. (Reference: [facility]) 2. Atherosclerotic calcified aorta with calcification and stenosis at the origins of the mesenteric and renal arteries. 3. Mild diverticulosis. 4. No acute abnormalities are seen in the abdomen and pelvis. 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 [facility] Diagnoses Sepsis A41.9; R65.20; N17.9 Sepsis type: sepsis due to unspecified organism Sepsis acute organ dysfunction status: with acute organ dysfunction Severe sepsis acute organ dysfunction type: acute renal failure Acute renal failure type: unspecified Severe sepsis shock status: without septic shock Community acquired pneumonia J18.9 Laterality: right Lung location: lower lobe of lung Elevated troponin R77.8 Hypertension I10 Hypertension type: unspecified A-fib I48.91 Atrial fibrillation type: unspecified May-Thurner syndrome I87.1 Respiratory failure with hypoxia J96.01 Chronicity: acute Acute kidney injury N17.9 Acute CVA (cerebrovascular accident) I63.9 Adrenal mass E27.8 NSTEMI (non-ST elevated myocardial infarction) I21.4 Hyponatremia E87.1 Anemia D64.9
[2021-03-17 16:19] LABS: Quest SARS-CoV-2 RNA NOT DETECTED (NOT DETECTED)
[2021-03-17] MEDS: gabapentin 300 mg Capsule PO ×2 (16:29→20:34)
--- NOTE | 2021-03-17 16:39 | PC.NURSE ---
Patient seems to be short of breath this AM with O2 sats in the upper 80's. Oxygen was increased to 7L.
--- NOTE | 2021-03-17 17:53 | PC.NURSE ---
Transfer Note Patient transferred to [facility] from ICU via wheelchair. Patient oriented to environment and equipment. Covering service notified. Heparin drip running per orders. Nurse aware of pending PTT. All belongings placed in room
[2021-03-17 18:04] LABS: Partial Thromboplastin Time 72.1 SECONDS (23.9-36.7)
[2021-03-17] MEDS: atorvastatin 40 mg Tablet PO (20:34)
[2021-03-17] MEDS: zolpidem 5 mg Tablet 10 MG PO (20:34)
[2021-03-17] MEDS: vancomycin 1,000 MG in sodium chloride 0.9% 250 ML 250 MG IV (22:51)
[2021-03-18] VITALS (13 sets, daily range): BP systolic 112–152; BP diastolic 71–80; PULSE 67–73; RESP 16–22; TEMP 36.4–36.6; O2SAT 90–95
[2021-03-18] MEDS: ipratropium-albuterol 3 mL Neb INHALATION ×3 (03:15→20:25)
[2021-03-18] MEDS: pantoprazole 40 mg SDV IVP ×2 (05:02→17:50)
[2021-03-18 05:25] LABS: Hematocrit 27.9 % (37.0-47.0); Hemoglobin 8.8 g/dL (11.5-15.3); Mean Corpuscular HGB Conc 31.5 g/dL (30.0-36.0); Mean Corpuscular Hemoglobin 29.7 pg (28.0-34.0); Mean Corpuscular Volume 94.3 fl (81-99); Mean Platelet Volume 10.4 fL (7.4-10.4); Platelet Count 127 10^3/cmm (130-400); Red Blood Count 2.96 10^6/uL (4.1-5.3); Red Cell Distribution Width 13.5 % (12.1-15.1); White Blood Count 12.5 10^3/uL (4.0-10.0)
[2021-03-18 05:36] LABS: Lactate (Lactic Acid level) 0.9 mmol/L (0.5-2.2)
[2021-03-18 05:37] LABS: D Dimer 1.32 ug/mIFEU (0-0.59)
[2021-03-18 05:43] LABS: Fibrinogen 684 mg/dL (174-498)
[2021-03-18 05:49] LABS: NT Pro B Type Natriuretic Pept 5766 pg/mL (0-125); Procalcitonin 8.82 ng/mL (0-0.5)
[2021-03-18] MEDS: sucralfate 1 gm Tablet PO ×2 (06:00→10:28)
[2021-03-18 06:01] LABS: Alanine Aminotransferase 17 U/L (0-33); Alkaline Phosphatase 73 IU/L (35-105); Anion Gap 18.2 (5-19); Aspartate Amino Transferase 14 U/L (0-32); Blood Urea Nitrogen 76 mg/dL (8-23); C Reactive Protein 104.5 mg/L (0.0-4.9); Carbon Dioxide 25 mmol/L (22-29); Chloride 98 mmol/L (98-107); Creatine Phosphokinase 20 U/L (26-192); Globulin 2.7 g/dL (1.3-4.6); Glucose 167 mg/dL (65-115); Magnesium 2.8 mg/dL (1.7-2.3); Osmolality Calculated 312 mOsm/kg (285-295); Phosphorus 4.6 mg/dL (2.5-4.5); Potassium 3.2 mmol/L (3.5-5.1); Sodium 138 mmol/L (136-145); Total Bilirubin 0.3 mg/dL (0.15-1.2); Total Protein 5.7 g/dL (6.6-8.7)
[2021-03-18 06:12] LABS: Slide Review Slide Review Perform
[2021-03-18] MEDS: heparin drip 25,000 UNIT/500 ML PREMIX 26 UNIT IV (06:12)
[2021-03-18 06:14] LABS: Absolute Segmented Neutrophil 9.9 10/cmm (1.6-7.1); Band Neutrophils Absolute 1.6 10^3/cmm (0.0-1.2); Lymphocytes 3 %; Monocytes Absolute 0.4 10^3/cmm (0.1-0.6); Segmented Neutrophils 79 %; Total Cells Counted 100 (0-100)
[2021-03-18 06:15] LABS: Absolute Neutrophil 11.5 10^3/cmm (1.4-6.5); Eosinophils 0 %; Lymphocytes Absolute 0.4 10^3/cmm (1.2-3.4); Platelet Estimate Decreased (Normal)
[2021-03-18 06:30] LABS: Ferritin 1413 ng/mL (15-150)
[2021-03-18 06:36] LABS: Partial Thromboplastin Time 96.5 SECONDS (23.9-36.7)
[2021-03-18] MEDS: aspirin 81 mg EC Tablet PO (10:28)
[2021-03-18] MEDS: carvedilol 25 mg Tablet PO (10:28)
[2021-03-18] MEDS: gabapentin 300 mg Capsule PO ×2 (10:28→15:32)
[2021-03-18] MEDS: enoxaparin 100 mg/mL Syringe 90 MG SUBCUT (10:29)
[2021-03-18] MEDS: doxycycline 100 MG in sodium chloride 0.9% (plus) 100 ML IV ×2 (10:29→21:59)
--- NOTE | 2021-03-18 10:44 | PC.SOCIAL ---
IMM Update Pg. 2 of IMM updated and reviewed with patient, who verbalized understanding. Copy provided.
--- NOTE | 2021-03-18 11:23 | P.PN_ITS ---
Subjective Subjective: Interval history: Juliet continues to feel unwell today. She is breathing with nasal cannula. Passing a reasonable amount of urine. Urine is clear, nonbloody or cloudy. She denies any pain. Denies any uremic symptoms. Vitals/I&O/Wt Last Vital Signs Temp 97.7 F 03/18/21 08:00 Pulse 67 03/18/21 08:00 Resp 16 03/18/21 08:00 BP 133/71 03/18/21 08:00 Pulse Ox 93 03/18/21 08:00 03/17/21 03/18/21 03/18/21 22:59 06:59 14:59 Intake Total 1778 / 2333.5 817.200 / 3150.700 Output Total 650 / 1650 1100 / 2750 Balance 1128 / 683.5 -282.800 / 400.700 Physical Exam Narrative: EXAM NARRATIVE: Constitutional: Awake, comfortable HEENT: Dry mucosa, no jvp, non icteric Lungs: Bilaterally coarse rales CVS: S1 S2, no murmurs Abdo: Soft, BS ok Ext 4: Minimal edema, peripheral perfusion with no cyanosis Neurological: Grossly non-focal Urinary Catheter Management^: Bermudez: Cath Placed During This Visit: yes Reason for Continuing Indwelling Catheter: Accurate Measurement of Urinary Output in Critically Ill Patients Urinary Catheter Date of Insertion: 03/16/21 Urinary Catheter Time of Insertion: 13:59 Data : 03/18/21 05:09 03/18/21 05:09 A&P Additional A&P Information 1. Acute renal failure Creatinine roughly stable since yesterday Differential diagnosis for this includes sepsis secondary to pneumonia leading to inflammatory cytokine mediated acute tubular injury in the setting of d ecreased glomerular pressure from effects of both ARB and anti-inflammatories. Embolic showering to the brain noted on the MRI also raising the possiblity of cholesterol embolic disease in the kidney. Although acute vasculitis is still in the differential diagnosis, repeat urinalysis was devoid of any protein or hematuria hence this is much less likely now. Given the other potential diagnoses that we are seeing, I do not wish to pursue kidney biopsy at this time I will hold steroids. If ANCA serology returns positive I will do a kidney biopsy. Hold steroids, diuretics, ivf Strict I's and O's No indication for renal replacement therapy at this time Dose medication for GFR less than 30 mL/min. 2. Chemistry Minor noncritical aberration; will replace potassium 3. Hypertension Blood pressure is fluctuant but stable. 4. Apparent pneumonia Sputum and blood culture sent and pending, on combination of Primaxin and vancomycin. Vanco dosing, trough 15-20. 5. AMS, blurry vision MRI scan pending of the brain appreciated showing innumerable bilateral foci of abnormal signal on the diffusion-weighted scans in the temporoparietal occipital lobes, the cerebellum and thalami consistent with numerous small nonhemorrhagic acute infarcts. These are most likely embolic in nature. No thrombus seen on echo, but high right sided pressure, ?? bubble study, ?? 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
[2021-03-18 12:12] LABS: COMPLEMENT COMPONENT C3C 163 mg/dL (83-193); COMPLEMENT COMPONENT C4C 57 mg/dL (15-57)
[2021-03-18] MEDS: potassium chloride ER 20 mEq Tablet 40 MEQ PO (12:46)
[2021-03-18 12:56] LABS: COMPLEMENT, TOTAL (CH50) 57 U/mL (31-60)
--- NOTE | 2021-03-18 14:19 | PC.NURSE ---
Patient's family presented to the nurses' station requesting to visit patient, however patient is currently being tested for TB. I reviewed this with patient's daughter and she was notably upset stating that when she spoke with a nurse in the other unit , she was told that once he was transferred to our unit, he could have visitors. She had not spoken to our nurses today. I reviewed risks of exposure if she stayed for a short visitation of 20-30 minutes and she verbalizes understanding and states she still would like to visit for this short period. I assisted her into her PPE and reviewed appropriate hand hygiene after visitation. She verbalizes understanding. I also reviewed the current visitor policy of 2 visitors allowed per day after the test results are received and if they are negative. She verbalizes understanding. I called and spoke with Dr. Rebollar as well as Marco Schultz LPN and informed them of the above information.
[2021-03-18 15:08] LABS: Partial Thromboplastin Time 38.8 SECONDS (23.9-36.7)
[2021-03-18] MEDS: lanolin oint 7 gm 1 APPLIC TOPICAL (15:31)
[2021-03-18] MEDS: saline nasal spray 44mL Btl 1 SPRAY NASAL (15:32)
--- NOTE | 2021-03-18 15:48 | PC.NURSE ---
Patient choked while trying to take medicine and her oxygen dropped to 82%. Let the Rebollar know. He states to change to puree diet.
--- NOTE | 2021-03-18 17:43 | P.PN_ITS ---
Subjective Subjective: Interval history: Patient was seen and examined this morning, seen sitting in the chair, continues to require 6/7 L supplemental home oxygen. Serum creatinine is likely plateauing, BUN is slightly higher as compared to yesterday, continues to have good urine output. No emergent indication for hemodialysis. Clinically euvolemic. Patient has significant choking spells, currently made n.p.o. Medications: Reviewed: Yes Vitals/I&O/Wt Last Vital Signs Temp 98 F 03/18/21 15:24 Pulse 69 03/18/21 15:24 Resp 18 03/18/21 15:24 BP 132/72 03/18/21 15:24 Pulse Ox 90 03/18/21 15:24 03/18/21 03/18/21 03/18/21 06:59 14:59 22:59 Intake Total 817.200 / 3150.700 240 / 240 656.667 / 896.667 Output Total 1100 / 2750 Balance -282.800 / 400.700 240 / 240 656.667 / 896.667 Physical Exam Narrative: EXAM NARRATIVE: Alert and awake HENMT: COMMON NORMALS: normocephalic and atraumatic HEAD & SCALP: normocephalic and atraumatic Chest: CHEST: Yes Symmetrical chest wall rise Resp: OTHER: Bilateral basal crackles in both lung joseph. Cardio: COMMON NORMALS: regular rate, regular rhythm, S1 normal heart sound present, S2 normal heart sound present, No gallops present (Cardio), No murmurs present (Cardio), No rub (Cardio) and Peripheral pulses 2+ throughout RATE: regular rate RHYTHM: regular rhythm HEART SOUNDS: S1 normal heart sound present and S2 normal heart sound present PERIPHERAL PULSES: Peripheral pulses 2+ throughout GI: COMMON NORMALS: Normal to inspection, nondistended, normoactive bowel sonali nds present, Soft to palpation, non-tender, No hepatosplenomegaly present and no masses AUSCULTATION: Yes normoactive bowel sounds PALPATION: Yes Soft to palpation and Yes No hepatosplenomegaly present RECTAL EXAM: deferred Extremity: COMMON NORMALS: no clubbing, cyanosis or edema and no pedal edema Urinary Catheter Management^: Bermudez: Cath Placed During This Visit: yes Reason for Continuing Indwelling Catheter: Accurate Measurement of Urinary Output in Critically Ill Patients Urinary Catheter Date of Insertion: 03/16/21 Urinary Catheter Time of Insertion: 13:59 Data : 03/18/21 05:09 03/18/21 05:09 A&P Assessment and plan (1) Sepsis: Status: Acute Qualifiers: Sepsis type: sepsis due to unspecified organism Sepsis acute organ dysfunction status: with acute organ dysfunction Severe sepsis acute organ dysfunction type: acute renal failure Acute renal failure type: unspecified Severe sepsis shock status: without septic shock Qualified Code(s): A41.9 - Sepsis, unspecified organism; R65.20 - Severe sepsis without septic shock; N17.9 - Acute kidney failure, unspecified (2) Community acquired pneumonia: Status: Acute Qualifiers: Laterality: right Lung location: lower lobe of lung Qualified Code(s): J18.9 - Pneumonia, unspecified organism (3) Elevated troponin: Status: Acute (4) Hypertension: Status: Acute Qualifiers: Hypertension type: unspecified Qualified Code(s): I10 - Essential (primary) hypertension (5) A-fib: Status: Acute Qualifiers: Atrial fibrillation type: unspecified Qualified Code(s): I48.91 - Unspecified atrial fibrillation (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 (7) Respiratory failure with hypoxia: Status: Acute Qualifiers: Chronicity: acute Qualified Code(s): J96.01 - Acute respiratory failure with hypoxia (8) Acute kidney injury: Status: Acute (9) Acute CVA (cerebrovascular accident): Status: Acute (10) Adrenal mass: Status: Acute (11) NSTEMI (non-ST elevated myocardial infarction): Status: Acute (12) Hyponatremia: Status: Acute (13) Anemia: Status: Acute Additional A&P Information Patient with a notable past medical history of hypertension, May Thurner syndrome, atrial fibrillation not currently on any anticoagulation presenting with worsening dyspnea increasing cough expectoration and hemoptysis at least over the last 3 weeks, without improvement on outpatient course of Augmentin on levofloxacin. Admit to ICU in view of sepsis and multiorgan failure Acute CVA: -Currently denies any focal neurologic deficits, no blurry vision, symptoms of blurry vision started over 48 hours ago, out of TPA window, NIH stroke scale 0 -MRI of the brain shows: There are innumerable bilateral foci of abnormal signal on the diffusion-weighted scans in the temporoparietal occipital lobes, the cerebellum and thalami consistent with numerous small nonhemorrhagic acute infarcts. These are most likely embolic in nature. -Has a history of atrial fibrillation not on anticoagulation, had an ablation procedure in 2007 -Does have evidence of sepsis secondary to pneumonia -Did consult neurologist to [facility], agreed with aspirin, statin, heparin for anticoagulation -Likely embolic strokes for underlying atrial fibrillation, possible sepsis related Plan: -Strokes look over 48 hours old -Blood pressure control -Heparin drip -Neurochecks -NIH stroke scale -We will order a bubble contrast echo for Eisenmenger syndrome Respiratory failure with hypoxia -Currently on 7 L -Continue nebulizer treatments -Secondary to pneumonia -Possible underlying pulmonary emboli, cannot undergo CT angiogram due to creatinine, cannot undergo a ventilation/perfusion scan currently under COVID-19 investigation, once Covid 19 PCR negative undergo a ventilation/perfusion scan -Fluid overload secondary to pulmonary edema, elevated BNP, CHF, pulmonary hypertension -Continue broad-spectrum antibiotics -Lasix as needed -Continue heparin drip -Hold off on fluids for now Pulmonary hypertension, pulmonary arterial pressure 50 mmHg Sepsis: Meets criteria with elevated white blood cell count, tachycardia tachypnea. Also additionally with signs of endorgan failure including hypoxic respiratory failure, acute kidney injury. Subjective fever and chills also reported at home, currently afebrile since presentation into the ER. Fluid supplementation not initiated as patient is clinically euvolemic, elevated BNP 27,000 may have underlying CHF additionally. Blood culture taken prior to initiation of antibiotics Start empiric antibiotic coverage with Zosyn, vancomycin and doxycycline for atypical coverage All antibiotics to be renally dosed. Preliminarily source appears to be worsening pneumonia. Chest x-ray with right lower lobe infiltrate. supplemental 02 to keep saturation >92% Duoneb and budesonide inhalation, hold off on steroids for now COVID, MRSA PCR, sputum gram stain and cx, influenza ag negative unvaccinated for COVID and Flu # Pneumonia: Complicated by aspiration pneumonia, has significant choking. clinically worsening as above. Abx coverage as above Follow barium study Currently n.p.o. -Also with elevated D dimer, worsening dyspnea, and h/o May thruner syndrome, high suspicion for pulmonary embolism. Cannot obtain CTA chest due to DEBRA. Check LE venous duplex negative for DVT and echocardiogram for right heart strain no significant heart strain, right side heart failure . Start presumptive anticoagulation with heparind drip Currently cannot undergo a ventilation/perfusion scan as under COVID-19 precautions, once COVID-19 comes back negative will order ventilation/perfusion scan # elevated troponin : May be related to NSTEMI vs posisble PE. Echocardiogram Normal left ventricular size and systolic function, EF 58 %. No regional wall motion abnormalities. Normal right ventricular size and systolic function. Mild biatrial enlargement. Thickened aortic and mitral valves Moderate tricuspid valve regurgitation. Moderate pulmonary hypertension with a peak pulmonary artery systolic pressure of 58 and a mean pressure of 30 mmHg. Trace pulmonary valve regurgitation. Mild mitral valve regurgitation. There is no pericardial effusion. There are no intracardiac masses. Heparin a/c presumptively Continue ASA 81mg po daily Continue atorvastatin # DEBRA : Cr up to 3.4, up from 1.3 on 03/11. No past h/o CKD per patient Check bladder scan, renal US, urine lytes Renally dose all abx Hold NSAIDs, HCTZ and losartan Continue carvedilol Consult nephrology # A fib, status post ablation, currently rate controlled. Continue Coreg. Patient not on a/c as outpatient # Transaminitis : likely from sepsis. Abdominal imaging if continues to worsen. Normal T.bili, mild elevation ALP to 117. Anemia, baseline hemoglobin unknown, continue Protonix 40 IV twice daily History of adrenal mass, known, continue to monitor, CT scan abdomen pelvis 1. There is a 3.0 cm isodense right adrenal mass. This is not fully evaluated due the lack of IV contrast. Dedicated CT scan of the adrenal glands with and without contrast or chemical shift MRI is advised. [facility] 2. Atherosclerotic calcified aorta with calcification and stenosis at the origins of the mesenteric and renal arteries. 3. Mild diverticulosis. 4. No acute abnormalities are seen in the abdomen and pelvis. Attestations Medical Necessity Statement*: Patient needs to be in hospital for management of above defined problems. Coding Level of Care Code Acute Command And Control for [facility] Diagnoses Sepsis A41.9; R65.20; N17.9 Sepsis type: sepsis due to unspecified organism Sepsis acute organ dysfunction status: with acute organ dysfunction Severe sepsis acute organ dysfunction type: acute renal failure Acute renal failure type: unspecified Severe sepsis shock status: without septic shock Community acquired pneumonia J18.9 Laterality: right Lung location: lower lobe of lung Elevated troponin R77.8 Hypertension I10 Hypertension type: unspecified A-fib I48.91 Atrial fibrillation type: unspecified May-Thurner syndrome I87.1 Respiratory failure with hypoxia J96.01 Chronicity: acute Acute kidney injury N17.9 Acute CVA (cerebrovascular accident) I63.9 Adrenal mass E27.8 NSTEMI (non-ST elevated myocardial infarction) I21.4 Hyponatremia E87.1 Anemia D64.9
[2021-03-18] MEDS: budesonide 0.5 mg/2 mL Neb INHALATION (20:25)
[2021-03-19] VITALS (14 sets, daily range): BP systolic 144–172; BP diastolic 79–85; PULSE 68–87; RESP 17–24; TEMP 36.4–37; O2SAT 87–95
[2021-03-19] MEDS: pantoprazole 40 mg SDV IVP ×2 (05:34→18:17)
--- NOTE | 2021-03-19 06:12 | ECG_ITS ---
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 Measurements Intervals [place] Rate: 73 P: 64 ID: [id number] QRS: 5 QRSD: 89 T: 18 QT: 382 QTc: 422 Interpretive Statements SINUS RHYTHM LOW QRS VOLTAGE IN PRECORDIAL LEADS [QRS DEFLECTION < 1.0 mV IN CHEST LEADS] Compared to ECG 03/16/2021 03:00:57 Low QRS voltage now present Electronically Signed On 03-20-2021 17:46:40 [employer] by Tyson Lawrence M.D. [id number]
[2021-03-19 06:37] LABS: Basophils % 0.2 %; Eosinophils % 0.1 %; Hematocrit 28.1 % (37.0-47.0); Lymphocytes # 0.5 10^3/uL (0.8-4.8); Lymphocytes % 4.2 %; Mean Corpuscular Hemoglobin 29.1 pg (28.0-34.0); Mean Corpuscular Volume 90.9 fl (81-99); Mean Platelet Volume 10.8 fL (7.4-10.4); Monocytes # 1.1 10^3/uL (0.2-0.9); Monocytes % 9.8 %; Neutrophils # 7.61 10^3/uL (1.8-7.7); Neutrophils % 67.1 %; Nucleated Red Blood Cells % 0.2 %; Platelet Count 140 10^3/cmm (130-400); Red Blood Count 3.09 10^6/uL (4.1-5.3); Red Cell Distribution Width 13.2 % (12.1-15.1); White Blood Count 11.3 10^3/uL (4.0-10.0)
[2021-03-19 06:39] LABS: INR 1.24 (0.8-1.2); Partial Thromboplastin Time 21.1 SECONDS (23.9-36.7)
[2021-03-19 06:41] LABS: Fibrinogen 569 mg/dL (174-498)
[2021-03-19 06:42] LABS: D Dimer 1.79 ug/mIFEU (0-0.59)
[2021-03-19 06:45] LABS: Lactate (Lactic Acid level) 0.9 mmol/L (0.5-2.2)
[2021-03-19 06:54] LABS: Alkaline Phosphatase 75 IU/L (35-105); Blood Urea Nitrogen 69 mg/dL (8-23); C Reactive Protein 63.6 mg/L (0.0-4.9); Calcium 8.8 mg/dL (8.5-10.5); Carbon Dioxide 26 mmol/L (22-29); Chloride 103 mmol/L (98-107); Globulin 2.9 g/dL (1.3-4.6); Glomerular Filtration Rate 16.1 mL/min (90-130); Glucose 148 mg/dL (65-115); Magnesium 2.8 mg/dL (1.7-2.3); Osmolality Calculated 317 mOsm/kg (285-295); Phosphorus 3.9 mg/dL (2.5-4.5); Sodium 142 mmol/L (136-145); Total Bilirubin 0.4 mg/dL (0.15-1.2); Total Protein 5.9 g/dL (6.6-8.7)
[2021-03-19 06:59] LABS: Alanine Aminotransferase 17 U/L (0-33); Aspartate Amino Transferase 31 U/L (0-32)
[2021-03-19 07:32] LABS: Ferritin 1514 ng/mL (15-150)
[2021-03-19 07:33] LABS: Troponin T (5th) Once 94 ng/L (0-10)
[2021-03-19 07:39] LABS: Slide Review Slide Review Perform
--- NOTE | 2021-03-19 08:00 | FL_ITS ---
WS: [id number] MODIFIED BARIUM SWALLOW HISTORY: Other dysphagia FLUOROSCOPY TIME: 3.1 minutes. Modified barium swallow was performed by the speech pathologist. Fluoroscopy was provided with the pa tient in a lateral projection. Multiple food consistencies were provided. Significant aspiration was noted with the thin liquids. Moderate aspiration and laryngeal penetration noted with the thicker liquids. There is spillage of the liquid to the vallecula and piriform sinuse s. Patient was able to swallow the solid foods without difficulty. Barium tablet was swallowed withou t difficulty. Mild delayed emptying of esophagus due to dysmotility. FL/FL barium swallow modifd [id number] IMPRESSION: 1. Significant episodes of aspiration or laryngeal penetration with thin liqui ds and to a lesser extent the thicker liquids. 2. Mild esophageal dysmotility. Please see speech therapist report also for recommendations.
[2021-03-19 08:39] LABS: NT Pro B Type Natriuretic Pept 3201 pg/mL (0-125); Procalcitonin 2.51 ng/mL (0-0.5)
[2021-03-19 08:51] LABS: Creatine Phosphokinase 46 U/L (26-192)
[2021-03-19] MEDS: ipratropium-albuterol 3 mL Neb INHALATION ×3 (10:25→22:52)
[2021-03-19] MEDS: budesonide 0.5 mg/2 mL Neb INHALATION ×2 (10:25→22:52)
[2021-03-19] MEDS: doxycycline 100 MG in sodium chloride 0.9% (plus) 100 ML IV ×2 (10:35→21:41)
--- NOTE | 2021-03-19 11:49 | P.PN_ITS ---
Subjective Subjective: Interval history: Ms. Adair feels okay. She is complaining of some substernal chest discomfort this morning. Her breathing is slightly better. Good urine output. No uremic symptoms. Minimal extremity edema. Overall clinically improving. Medications: Reviewed: Yes Vitals/I&O/Wt Last Vital Signs Temp 98.4 F 03/19/21 11:08 Pulse 73 03/19/21 11:08 Resp 18 03/19/21 11:08 BP 154/82 03/19/21 11:08 Pulse Ox 95 03/19/21 11:08 03/18/21 03/19/21 03/19/21 22:59 06:59 14:59 Intake Total 776.667 / 1016.667 200 / 1216.667 Output Total 1050 / 1050 Balance 776.667 / 1016.667 -850 / 166.667 Physical Exam Narrative: EXAM NARRATIVE: Constitutional: Awake, comfortable HEENT: Dry mucosa, no jvp, non icteric Lungs: Bilaterally coarse rales CVS: S1 S2, no murmurs Abdo: Soft, BS ok Ext 4: Minimal edema, peripheral perfusion with no cyanosis Neurological: Grossly non-focal Urinary Catheter Management^: Bermudez: Cath Placed During This Visit: yes Reason for Continuing Indwelling Catheter: Other Urinary Catheter Date of Insertion: 03/16/21 Urinary Catheter Time of Insertion: 13:59 Data : 03/19/21 06:10 03/19/21 06:10 A&P Additional A&P Information 1. Acute renal failure Creatinine now significantly improving. This is now most consistent with pneumonia and associated inflammatory mediated tubular dysfunction. Other differentials and now much lower. Hold steroids, diuretics, ivf Strict I's and O's No indication for renal replacement therapy at this time Dose medication for GFR less than 30 mL/min. 2. Chemistry Well balanced 3. Hypertension Blood pressure is fluctuant but stable. 4. Apparent pneumonia Sputum and blood culture sent and pending, on combination of Primaxin and vancomycin. Vanco dosing, trough 15-20. 5. AMS, blurry vision MRI scan pending of the brain appreciated showing innumerable bilateral foci of abnormal signal on the diffusion-weighted scans in the temporoparietal occipital lobes, the cerebellum and thalami consistent with numerous small nonhemorrhagic acute infarcts. These are most likely embolic in nature. No thrombus seen on echo, but high right sided pressure, ?? bubble study, ?? Eisenmenger syndrome; No DVT appreciated on LE duplex Afib noted 6. 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
[2021-03-19] MEDS: enoxaparin 100 mg/mL Syringe 90 MG SUBCUT (12:31)
[2021-03-19] MEDS: saline nasal spray 44mL Btl 1 SPRAY NASAL (12:39)
--- NOTE | 2021-03-19 13:48 | PM.PN ---
Subjective Subjective: Interval history: Patient was seen and examined this morning, was complaining of being thirsty, wanted to eat, continues to have good urine output, currently requiring 5 to 6 L oxygen through nasal cannula.Underwent barium swallow study today. Medications: Reviewed: Yes Vitals/I&O/Wt Last Vital Signs Temp 98.4 F 03/19/21 11:08 Pulse 73 03/19/21 11:08 Resp 18 03/19/21 11:08 BP 154/82 03/19/21 11:08 Pulse Ox 95 03/19/21 11:08 03/18/21 03/19/21 03/19/21 22:59 06:59 14:59 Intake Total 776.667 / 1016.667 200 / 1216.667 200 / 200 Output Total 1050 / 1050 Balance 776.667 / 1016.667 -850 / 166.667 200 / 200 Physical Exam Narrative: EXAM NARRATIVE: Alert and awake HENMT: COMMON NORMALS: normocephalic and atraumatic HEAD & SCALP: normocephalic and atraumatic Chest: CHEST: Yes Symmetrical chest wall rise Resp: OTHER: Bilateral wheezing present in both lungs joseph Cardio: COMMON NORMALS: regular rate, regular rhythm, S1 normal heart sound present, S2 normal heart sound present, No gallops present (Cardio), No murmurs present (Cardio), No rub (Cardio) and Peripheral pulses 2+ throughout RATE: regular rate RHYTHM: regular rhythm HEART SOUNDS: S1 normal heart sound present and S2 normal heart sound present PERIPHERAL PULSES: Peripheral pulses 2+ throughout GI: COMMON NORMALS: Normal to inspection, nondistended, normoactive bowel sounds present, Soft to palpation, non-tender, No hepatosplenomegaly present and no masses AUSCULTATION: Yes normoactive bowel sounds PALPATION: Yes Soft to palpation and Yes No hepatosplenomegaly present RECTAL EXAM: deferred Extremity: COMMON NORMALS: no clubbing, cyanosis or edema and no pedal edema Urinary Catheter Management^: Bermudez: Cath Placed During This Visit: yes Reason for Continuing Indwelling Catheter: Other Urinary Catheter Date of Insertion: 03/16/21 Urinary Catheter Time of Insertion: 13:59 Data : 03/19/21 06:10 03/19/21 06:10 A&P Assessment and plan (1) Sepsis: Status: Acute Qualifiers: Acute renal failure type: unspecified Sepsis acute organ dysfunction status: with acute organ dysfunction Sepsis type: sepsis due to unspecified organism Severe sepsis acute organ dysfunction type: acute renal failure Severe sepsis shock status: without septic shock Qualified Code(s): A41.9 - Sepsis, unspecified organism; R65.20 - Severe sepsis without septic shock; N17.9 - Acute kidney failure, unspecified (2) Community acquired pneumonia: Status: Acute Qualifiers: Laterality: right Lung location: lower lobe of lung Qualified Code(s): J18.9 - Pneumonia, unspecified organism (3) Elevated troponin: Status: Acute (4) Hypertension: Status: Acute Qualifiers: Hypertension type: unspecified Qualified Code(s): I10 - Essential (primary) hypertension (5) A-fib: Status: Acute Qualifiers: Atrial fibrillation type: unspecified Qualified Code(s): I48.91 - Unspecified atrial fibrillation (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 (7) Respiratory failure with hypoxia: Status: Acute Qualifiers: Chronicity: acute Qualified Code(s): J96.01 - Acute respiratory failure with hypoxia (8) Acute kidney injury: Status: Acute (9) Acute CVA (cerebrovascular accident): Status: Acute (10) Adrenal mass: Status: Acute (11) NSTEMI (non-ST elevated myocardial infarction): Status: Acute (12) Hyponatremia: Status: Acute (13) Anemia: Status: Acute Additional A&P Information Patient with a notable past medical history of hypertension, May Thurner syndrome, atrial fibrillation not currently on any anticoagulation presenting with worsening dyspnea increasing cough expectoration and hemoptysis at least over the last 3 weeks, without improvement on outpatient course of Augmentin on levofloxacin. Admit to ICU in view of sepsis and multiorgan failure Acute CVA: -Currently denies any focal neurologic deficits, no blurry vision, symptoms of blurry vision started over 48 hours ago, out of TPA window, NIH stroke scale 0 -MRI of the brain shows: There are innumerable bilateral foci of abnormal signal on the diffusion-weighted scans in the temporoparietal occipital lobes, the cerebellum and thalami consistent with numerous small nonhemorrhagic acute infarcts. These are most likely embolic in nature. -Has a history of atrial fibrillation not on anticoagulation, had an ablation procedure in 2007 -Does have evidence of sepsis secondary to pneumonia -Did consult neurologist to [facility], agreed with aspirin, statin, heparin for anticoagulation -Likely embolic strokes for underlying atrial fibrillation, possible sepsis related Plan: -Strokes look over 48 hours old -Blood pressure control -Heparin drip -Neurochecks -NIH stroke scale -We will order a bubble contrast echo for Eisenmenger syndrome Respiratory failure with hypoxia -Currently on 7 L -Continue nebulizer treatments -Secondary to pneumonia -Possible underlying pulmonary emboli, cannot undergo CT angiogram due to creatinine, cannot undergo a ventilation/perfusion scan currently under COVID-19 investigation, once Covid 19 PCR negative undergo a ventilation/perfusion scan -Fluid overload secondary to pulmonary edema, elevated BNP, CHF, pulmonary hypertension -Continue broad-spectrum antibiotics -Lasix as needed -Continue heparin drip -Hold off on fluids for now Pulmonary hypertension, pulmonary arterial pressure 50 mmHg Sepsis: Meets criteria with elevated white blood cell count, tachycardia tachypnea. Also additionally with signs of endorgan failure including hypoxic respiratory failure, acute kidney injury. Subjective fever and chills also reported at home, currently afebrile since presentation into the ER. Fluid supplementation not initiated as patient is clinically euvolemic, elevated BNP 27,000 may have underlying CHF additionally. Blood culture taken prior to initiation of antibiotics Start empiric antibiotic coverage with Zosyn, vancomycin and doxycycline for atypical coverage All antibiotics to be renally dosed. Preliminarily source appears to be worsening pneumonia. Chest x-ray with right lower lobe infiltrate. supplemental 02 to keep saturation >92% Duoneb and budesonide inhalation, hold off on steroids for now COVID, MRSA PCR, sputum gram stain and cx, influenza ag negative unvaccinated for COVID and Flu # Pneumonia: Complicated by aspiration pneumonia, has significant choking. clinically worsening as above. Abx coverage as above Modified barium study: Significant episodes of aspiration or laryngeal penetration with thin liquids and to a lesser extent the thicker liquids.Mild esophageal dysmotility. Has been started on dysphagia level 1 diet. -Also with elevated D dimer, worsening dyspnea, and h/o May thruner syndrome, high suspicion for pulmonary embolism. Cannot obtain CTA chest due to DEBRA. Check LE venous duplex negative for DVT and echocardiogram for right heart strain no significant heart strain, right side heart failure . Start presumptive anticoagulation with heparind drip Currently cannot undergo a ventilation/perfusion scan as under COVID-19 precautions, once COVID-19 comes back negative will order ventilation/perfusion scan # elevated troponin : May be related to NSTEMI vs posisble PE. Echocardiogram Normal left ventricular size and systolic function, EF 58 %. No regional wall motion abnormalities. Normal right ventricular size and systolic function. Mild biatrial enlargement. Thickened aortic and mitral valves Moderate tricuspid valve regurgitation. Moderate pulmonary hypertension with a peak pulmonary artery systolic pressure of 58 and a mean pressure of 30 mmHg. Trace pulmonary valve regurgitation. Mild mitral valve regurgitation. There is no pericardial effusion. There are no intracardiac masses. Heparin a/c presumptively Continue ASA 81mg po daily Continue atorvastatin # DEBRA : Cr up to 3.4, up from 1.3 on 03/11. No past h/o CKD per patient Check bladder scan, renal US, urine lytes Renally dose all abx Hold NSAIDs, HCTZ and losartan Continue carvedilol Consult nephrology # A fib, status post ablation, currently rate controlled. Continue Coreg. Patient not on a/c as outpatient # Transaminitis : likely from sepsis. Abdominal imaging if continues to worsen. Normal T.bili, mild elevation ALP to 117. Anemia, baseline hemoglobin unknown, continue Protonix 40 IV twice daily History of adrenal mass, known, continue to monitor, CT scan abdomen pelvis 1. There is a 3.0 cm isodense right adrenal mass. This is not fully evaluated due the lack of IV contrast. Dedicated CT scan of the adrenal glands with and without contrast or chemical shift MRI is advised. [facility] 2. Atherosclerotic calcified aorta with calcification and stenosis at the origins of the mesenteric and renal arteries. 3. Mild diverticulosis. 4. No acute abnormalities are seen in the abdomen and pelvis. Attestations Medical Necessity Statement*: Patient needs to be in the hospital for management of above defined problems. Coding Level of Care Code Acute Platform Operations Director for [facility] Fwd Exam Detailed Diagnoses Sepsis A41.9; R65.20; N17.9 Acute renal failure type: unspecified Sepsis acute organ dysfunction status: with acute organ dysfunction Sepsis type: sepsis due to unspecified organism Severe sepsis acute organ dysfunction type: acute renal failure Severe sepsis shock status: without septic shock Community acquired pneumonia J18.9 Laterality: right Lung location: lower lobe of lung Elevated troponin R77.8 Hypertension I10 Hypertension type: unspecified A-fib I48.91 Atrial fibrillation type: unspecified May-Thurner syndrome I87.1 Respiratory failure with hypoxia J96.01 Chronicity: acute Acute kidney injury N17.9 Acute CVA (cerebrovascular accident) I63.9 Adrenal mass E27.8 NSTEMI (non-ST elevated myocardial infarction) I21.4 Hyponatremia E87.1 Anemia D64.9
[2021-03-19] MEDS: guaiFENesin 600 mg Tablet PO (18:16)
[2021-03-19] MEDS: sucralfate 1 gm Tablet PO ×2 (18:17→21:41)
[2021-03-19 21:21] LABS: Vancomycin Trough < 4.0 ug/mL (10-15)
[2021-03-19] MEDS: carvedilol 25 mg Tablet PO (21:41)
[2021-03-19] MEDS: zolpidem 5 mg Tablet 10 MG PO (21:41)
[2021-03-19] MEDS: gabapentin 300 mg Capsule PO (21:41)
[2021-03-19] MEDS: atorvastatin 40 mg Tablet PO (21:41)
[2021-03-19] MEDS: vancomycin 1,000 MG in sodium chloride 0.9% 250 ML 250 MG IV (21:43)
--- NOTE | 2021-03-19 22:17 | PC.PHAR ---
Vancomycin trough on dosage of 1gm IVPB every 48 hours is less than 4.0. Dosage is increased to 1gm IVPB every 24 hours with another trough to be obtained before the fourth dose at this frequency.
[2021-03-19] MEDS: acetylcysteine 200 mg/mL SDV 4 mL 100 MG INHALATION (22:52)
[2021-03-20] VITALS (13 sets, daily range): BP systolic 138–166; BP diastolic 71–87; PULSE 64–94; RESP 16–24; TEMP 36.3–36.8; O2SAT 78–95
[2021-03-20] MEDS: acetylcysteine 200 mg/mL SDV 4 mL 100 MG INHALATION (03:08)
[2021-03-20] MEDS: ipratropium-albuterol 3 mL Neb INHALATION ×3 (03:08→21:18)
[2021-03-20] MEDS: pantoprazole 40 mg SDV IVP ×2 (06:13→18:41)
[2021-03-20] MEDS: sucralfate 1 gm Tablet PO ×4 (06:13→21:35)
[2021-03-20 06:23] LABS: Basophils % 0.3 %; Hematocrit 28.6 % (37.0-47.0); Hemoglobin 8.8 g/dL (11.5-15.3); Lymphocytes # 0.4 10^3/uL (0.8-4.8); Lymphocytes % 3.8 %; Mean Corpuscular HGB Conc 30.8 g/dL (30.0-36.0); Mean Corpuscular Hemoglobin 28.6 pg (28.0-34.0); Mean Corpuscular Volume 92.9 fl (81-99); Mean Platelet Volume 9.8 fL (7.4-10.4); Monocytes # 0.7 10^3/uL (0.2-0.9); Monocytes % 5.8 %; Neutrophils # 8.12 10^3/uL (1.8-7.7); Neutrophils % 72.5 %; Nucleated Red Blood Cells % 0 %; Platelet Count 153 10^3/cmm (130-400); Red Blood Count 3.08 10^6/uL (4.1-5.3); Red Cell Distribution Width 13.2 % (12.1-15.1); White Blood Count 11.2 10^3/uL (4.0-10.0)
[2021-03-20 06:47] LABS: Anion Gap 12.5 (5-19); Blood Urea Nitrogen 66 mg/dL (8-23); Calcium 8.8 mg/dL (8.5-10.5); Carbon Dioxide 30 mmol/L (22-29); Chloride 107 mmol/L (98-107); Glomerular Filtration Rate 23.4 mL/min (90-130); Glucose 169 mg/dL (65-115); Osmolality Calculated 325 mOsm/kg (285-295); Potassium 3.5 mmol/L (3.5-5.1); Sodium 146 mmol/L (136-145)
[2021-03-20 07:02] LABS: Slide Review Slide Review Perform
[2021-03-20] MEDS: guaiFENesin 600 mg Tablet PO ×2 (09:04→18:41)
[2021-03-20] MEDS: gabapentin 300 mg Capsule PO ×3 (09:05→21:36)
[2021-03-20] MEDS: aspirin 81 mg EC Tablet PO (09:05)
[2021-03-20] MEDS: carvedilol 25 mg Tablet PO ×2 (09:05→21:35)
[2021-03-20] MEDS: doxycycline 100 MG in sodium chloride 0.9% (plus) 100 ML IV ×2 (09:13→21:35)
[2021-03-20] MEDS: budesonide 0.5 mg/2 mL Neb INHALATION ×2 (09:13→21:18)
--- NOTE | 2021-03-20 09:40 | PM.PN ---
Subjective Subjective: Interval history: weak, cough, sob, dizzy. Medications: Reviewed: Yes Medication Review Details: Current Medications Acetaminophen (Acetaminophen 325 Mg Tablet) 650 mg PO Q6H PRN PRN Reason: Mild/Mod Pain Or Temp >/= 101 Last Admin: 03/16/21 00:33 Dose: 650 mg Documented by: Acetylcysteine (Acetylcysteine 200 Mg/Ml Sdv 4 Ml) 100 mg INHALATION Q6H [facility]IAM Last Admin: 03/20/21 03:08 Dose: 100 mg Documented by: Albuterol/Ipratropium (Ipratropium-Albuterol 3 Ml Neb) 3 ml INHALATION Q6H.RESPIRATORY MARIAM Last Admin: 03/20/21 09:13 Dose: 3 ml Documented by: Aspirin (Aspirin 81 Mg Ec Tablet) 81 mg PO DAILY MARIAM Last Admin: 03/20/21 09:05 Dose: 81 mg Documented by: Atorvastatin Calcium (Atorvastatin 40 Mg Tablet) 40 mg PO BEDTIME MARIAM Last Admin: 03/19/21 21:41 Dose: 40 mg Documented by: Budesonide (Budesonide 0.5 Mg/2 Ml Neb) 0.5 mg INHALATION BID.RESPIRATORY MARIAM Last Admin: 03/20/21 09:13 Dose: 0.5 mg Documented by: Carvedilol (Carvedilol 25 Mg Tablet) 25 mg PO BID@0900,2100 [facility]IAM Last Admin: 03/20/21 09:05 Dose: 25 mg Documented by: Enoxaparin Sodium (Enoxaparin 100 Mg/Ml Syringe) 90 mg 1 mg/kg (90 mg) SUBCUT Q24H [facility]IAM Last Admin: 03/19/21 12:31 Dose: 90 mg Documented by: Gabapentin (Gabapentin 300 Mg Capsule) 300 mg PO TID MARIAM Last Admin: 03/20/21 09:05 Dose: 300 mg Documented by: Guaifenesin (Guaifenesin 600 Mg Tablet) 600 mg PO BID MARIAM Last Admin: 03/20/21 09:04 Dose: 600 mg Documented by: Doxycycline Hyclate 100 mg/ (Sodium Chloride) 100 mls @ 100 mls/hr IV Q12H [facility]; Protocol Last Admin: 03/20/21 09:13 Dose: 100 mls/hr Documented by: Imipenem/Cilastatin Sodium 250 (mg/ Sodium Chloride) 100 mls @ 200 mls/hr IV Q12H [facility]; Protocol Last Infusion: 03/20/21 00:31 Dose: Infused Documented by: Vancomycin HCl 1,000 mg/ (Sodium Chloride) 250 mls @ 250 mls/hr IV Q24H [facility] Lanolin (Lanolin Oint 7 Gm) 1 applic TOPICAL PRN PRN PRN Reason: DRYNESS Last Admin: 03/18/21 15:31 Dose: 1 applic Documented by: Lorazepam (Lorazepam 2 Mg/Ml Inj 1 Ml) 0.5 mg IVP Q8H PRN PRN Reason: ANXIETY Last Admin: 03/17/21 09:32 Dose: 0.5 mg Documented by: Methylprednisolone Sodium Succinate (Methylprednisolone Sod Succ 40 Mg/Ml Inj) 40 mg IVP Q12H [facility] Last Admin: 03/20/21 02:45 Dose: 40 mg Documented by: Non-Formulary Medication (Cholecalciferol (Vitamin D3)) 25 mcg PO DAILY [facility] Non-Formulary Medication (Niacin) 1,000 mg PO DAILY [facility] Ondansetron HCl (Ondansetron 2 Mg/Ml Sdv 2 Ml) 4 mg IVP Q8H PRN PRN Reason: vomiting, or N/V if npo Pantoprazole Sodium (Pantoprazole 40 Mg Sdv) 40 mg IVP Q12H [facility] Last Admin: 03/20/21 06:13 Dose: 40 mg Documented by: Sodium Chloride (Saline Nasal [place] 44ml Btl) 1 spray NASAL PRN PRN PRN Reason: DRYNESS Last Admin: 03/19/21 12:39 Dose: 1 spray Documented by: Sucralfate (Sucralfate 1 Gm Tablet) 1 gm PO AC&BEDTIME [facility]IAM Last Admin: 03/20/21 06:13 Dose: 1 gm Documented by: Zolpidem Tartrate (Zolpidem 5 Mg Tablet) 10 mg PO BEDTIME [facility]IAM Last Admin: 03/19/21 21:41 Dose: 10 mg Documented by: Vitals/I&O/Wt Last Vital Signs Temp 98.3 F 03/20/21 07:39 Pulse 94 03/20/21 09:30 Resp 24 H 03/20/21 09:30 BP 138/71 03/20/21 07:39 Pulse Ox 94 03/20/21 09:40 03/19/21 03/20/21 03/20/21 22:59 06:59 14:59 Intake Total 830 / 1030 340 / 1370 Output Total 1700 / 1700 400 / 2100 Balance -870 / -670 -60 / -730 Physical Exam Narrative: EXAM NARRATIVE: elderly female on oxygen, weak sitting up on nc 02 vs noted heent- nc/at, eomi, anicteric neck supple lungs crackles/ ronchi heart reg abd soft, nt, +BS ext 1+ leg edema neuro- a,a, o x 3 Urinary Catheter Management^: Bermudez: Cath Placed During This Visit: yes Reason for Continuing Indwelling Catheter: Other Urinary Catheter Date of Insertion: 03/16/21 Urinary Catheter Time of Insertion: 13:59 Data : 03/20/21 05:30 03/20/21 05:30 A&P Additional A&P Information 1. Acute renal failure Creatinine now significantly improving. Strict I's and O's Dose medication for CKD stage 3b- and adjust as cr continues to improve -F/U SEROLOGIES- OFF OF STEROIDS 2. electrolytes- hypernatremia- hold diuretics- encourage water -monitor uop and chemistries - replace k 3. PNA- renal dose abx -monitor vanco trough. please keep under 19 3b. resp failure- sob per medicine. EF 58%, BNP improving 4. CVA and a fib- per medicine Hypertension Blood pressure is fluctuant but stable. 5. h/o adrenal mass 6. 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
[2021-03-20] MEDS: potassium chloride ER 20 mEq Tablet PO (10:52)
[2021-03-20] MEDS: enoxaparin 100 mg/mL Syringe 90 MG SUBCUT (10:52)
--- NOTE | 2021-03-20 11:14 | PC.SOCIAL ---
IMM Updated Updated pt via phone, on IMM. No questions voiced. Provided pt a copy. Initialed, dated, & timed copy in chart.
[2021-03-20 13:28] LABS: Creatinine, Random Urine 65 mg/dL (20-275); Protein, Total, Random 69 mg/dL (5-24); Protein/Creatinine Ratio 1.062 (0.021-0.161); Protein/Creatinine Ratio 1062 mg/g creat (21-161)
[2021-03-20 14:33] LABS: ANA PATTERN Nuclear, Speckled; ANA SCREEN, IFA POSITIVE (NEGATIVE); THYROID PEROXIDASE ANTIBODIES 2 IU/mL (<9)
[2021-03-20 15:37] LABS: CENTROMERE B ANTIBODY <1.0 NEG AI (<1.0 NEG); JO-1 ANTIBODY <1.0 NEG AI (<1.0 NEG); RNP ANTIBODY <1.0 NEG AI (<1.0 NEG); SCL-70 ANTIBODY <1.0 NEG AI (<1.0 NEG); SJOGREN'S ANTIBODY (SS-A) <1.0 NEG AI (<1.0 NEG); SM ANTIBODY <1.0 NEG AI (<1.0 NEG); SS-B <1.0 NEG AI (<1.0 NEG)
[2021-03-20 16:22] LABS: Potassium, Radom Urine 17 mmol/L; Urine Creatinine 63 mg/dL (28-217); Urine Random Chloride 24 mmol/L; Urine Random Sodium 41 mmol/L
--- NOTE | 2021-03-20 17:28 | PM.PN ---
Subjective Subjective: Interval history: Patient was seen and examined this morning, having scant hemoptysis,BUN and SCR is improving, Continue to have good urine output.Supplemental oxygen requirement Medications: Reviewed: Yes Medication Review Details: Current Medications Acetaminophen (Acetaminophen 325 Mg Tablet) 650 mg PO Q6H PRN PRN Reason: Mild/Mod Pain Or Temp >/= 101 Last Admin: 03/16/21 00:33 Dose: 650 mg Documented by: Acetylcysteine (Acetylcysteine 200 Mg/Ml Sdv 4 Ml) 100 mg INHALATION Q6H [facility]IAM Last Admin: 03/20/21 03:08 Dose: 100 mg Documented by: Albuterol/Ipratropium (Ipratropium-Albuterol 3 Ml Neb) 3 ml INHALATION Q6H.RESPIRATORY MARIAM Last Admin: 03/20/21 09:13 Dose: 3 ml Documented by: Aspirin (Aspirin 81 Mg Ec Tablet) 81 mg PO DAILY [facility]IAM Last Admin: 03/20/21 09:05 Dose: 81 mg Documented by: Atorvastatin Calcium (Atorvastatin 40 Mg Tablet) 40 mg PO BEDTIME [facility]IAM Last Admin: 03/19/21 21:41 Dose: 40 mg Documented by: Budesonide (Budesonide 0.5 Mg/2 Ml Neb) 0.5 mg INHALATION BID.RESPIRATORY MARIAM Last Admin: 03/20/21 09:13 Dose: 0.5 mg Documented by: Carvedilol (Carvedilol 25 Mg Tablet) 25 mg PO BID@0900,2100 [facility] Last Admin: 03/20/21 09:05 Dose: 25 mg Documented by: Enoxaparin Sodium (Enoxaparin 100 Mg/Ml Syringe) 90 mg 1 mg/kg (90 mg) SUBCUT Q24H [facility] Last Admin: 03/19/21 12:31 Dose: 90 mg Documented by: Gabapentin (Gabapentin 300 Mg Capsule) 300 mg PO TID [facility] Last Admin: 03/20/21 09:05 Dose: 300 mg Documented by: Guaifenesin (Guaifenesin 600 Mg Tablet) 600 mg PO BID [facility] Last Admin: 03/20/21 09:04 Dose: 600 mg Documented by: Doxycycline Hyclate 100 mg/ (Sodium Chloride) 100 mls @ 100 mls/hr IV Q12H [facility]; Protocol Last Admin: 03/20/21 09:13 Dose: 100 mls/hr Documented by: Imipenem/Cilastatin Sodium 250 (mg/ Sodium Chloride) 100 mls @ 200 mls/hr IV Q12H [facility]; Protocol Last Infusion: 03/20/21 00:31 Dose: Infused Documented by: Vancomycin HCl 1,000 mg/ (Sodium Chloride) 250 mls @ 250 mls/hr IV Q24H [facility] Lanolin (Lanolin Oint 7 Gm) 1 applic TOPICAL PRN PRN PRN Reason: DRYNESS Last Admin: 03/18/21 15:31 Dose: 1 applic Documented by: Lorazepam (Lorazepam 2 Mg/Ml Inj 1 Ml) 0.5 mg IVP Q8H PRN PRN Reason: ANXIETY Last Admin: 03/17/21 09:32 Dose: 0.5 mg Documented by: Methylprednisolone Sodium Succinate (Methylprednisolone Sod Succ 40 Mg/Ml Inj) 40 mg IVP Q12H [facility] Last Admin: 03/20/21 02:45 Dose: 40 mg Documented by: Non-Formulary Medication (Cholecalciferol (Vitamin D3)) 25 mcg PO DAILY [facility]IAM Non-Formulary Medication (Niacin) 1,000 mg PO DAILY [facility] Ondansetron HCl (Ondansetron 2 Mg/Ml Sdv 2 Ml) 4 mg IVP Q8H PRN PRN Reason: vomiting, or N/V if npo Pantoprazole Sodium (Pantoprazole 40 Mg Sdv) 40 mg IVP Q12H [facility] Last Admin: 03/20/21 06:13 Dose: 40 mg Documented by: Sodium Chloride (Saline Nasal [place] 44ml Btl) 1 spray NASAL PRN PRN PRN Reason: DRYNESS Last Admin: 03/19/21 12:39 Dose: 1 spray Documented by: Sucralfate (Sucralfate 1 Gm Tablet) 1 gm PO AC&BEDTIME MARIAM Last Admin: 03/20/21 06:13 Dose: 1 gm Documented by: Zolpidem Tartrate (Zolpidem 5 Mg Tablet) 10 mg PO BEDTIME MARIAM Last Admin: 03/19/21 21:41 Dose: 10 mg Documented by: Vitals/I&O/Wt Last Vital Signs Temp 97.8 F 03/20/21 15:32 Pulse 75 03/20/21 15:32 Resp 18 03/20/21 15:32 BP 163/80 03/20/21 15:32 Pulse Ox 90 03/20/21 15:32 1103/20/21 03/20/21 06:59 14:59 22:59 Intake Total 340 / 1370 200 / 200 Output Total 400 / 2100 Balance -60 / -730 200 / 200 Physical Exam Narrative: EXAM NARRATIVE: Alert and awake HENMT: COMMON NORMALS: normocephalic and atraumatic HEAD & SCALP: normocephalic and atraumatic Chest: CHEST: Yes Symmetrical chest wall rise Resp: OTHER: Bilateral wheezing present in both lungs joseph Cardio: COMMON NORMALS: regular rate, regular rhythm, S1 normal heart sound present, S2 normal heart sound present, No gallops present (Cardio), No murmurs present (Cardio), No rub (Cardio) and Peripheral pulses 2+ throughout RATE: regular rate RHYTHM: regular rhythm HEART SOUNDS: S1 normal heart sound present and S2 normal heart sound present PERIPHERAL PULSES: Peripheral pulses 2+ throughout GI: COMMON NORMALS: Normal to inspection, nondistended, normoactive bowel sounds present, Soft to palpation, non-tender, No hepatosplenomegaly present and no masses AUSCULTATION: Yes normoactive bowel sounds PALPATION: Yes Soft to palpation and Yes No hepatosplenomegaly present RECTAL EXAM: deferred Extremity: COMMON NORMALS: no clubbing, cyanosis or edema and no pedal edema Urinary Catheter Management^: Bermudez: Cath Placed During This Visit: yes Reason for Continuing Indwelling Catheter: Other Urinary Catheter Date of Insertion: 03/16/21 Urinary Catheter Time of Insertion: 13:59 Data : 03/20/21 05:30 03/20/21 05:30 A&P Assessment and plan (1) Sepsis: Status: Acute Qualifiers: Sepsis type: sepsis due to unspecified organism Sepsis acute organ dysfunction status: with acute organ dysfunction Severe sepsis acute organ dysfunction type: acute renal failure Acute renal failure type: unspecified Severe sepsis shock status: without septic shock Qualified Code(s): A41.9 - Sepsis, unspecified organism; R65.20 - Severe sepsis without septic shock; N17.9 - Acute kidney failure, unspecified (2) Community acquired pneumonia: Status: Acute Qualifiers: Laterality: right Lung location: lower lobe of lung Qualified Code(s): J18.9 - Pneumonia, unspecified organism (3) Elevated troponin: Status: Acute (4) Hypertension: Status: Acute Qualifiers: Hypertension type: unspecified Qualified Code(s): I10 - Essential (primary) hypertension (5) A-fib: Status: Acute Qualifiers: Atrial fibrillation type: unspecified Qualified Code(s): I48.91 - Unspecified atrial fibrillation (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 Pending QuantiFERON gold for tuberculosis work-up. Status: Acute Additional A&P Information Patient with a notable past medical history of hypertension, May Thurner syndrome, atrial fibrillation not currently on any anticoagulation presenting with worsening dyspnea increasing cough expectoration and hemoptysis at least over the last 3 weeks, without improvement on outpatient course of Augmentin on levofloxacin. Admit to ICU in view of sepsis and multiorgan failure Acute CVA: -Currently denies any focal neurologic deficits, no blurry vision, symptoms of blurry vision started over 48 hours ago, out of TPA window, NIH stroke scale 0 -MRI of the brain shows: There are innumerable bilateral foci of abnormal signal on the diffusion-weighted scans in the temporoparietal occipital lobes, the cerebellum and thalami consistent with numerous small nonhemorrhagic acute infarcts. These are most likely embolic in nature. -Has a history of atrial fibrillation not on anticoagulation, had an ablation procedure in 2007 -Does have evidence of sepsis secondary to pneumonia -Did consult neurologist to [facility], agreed with aspirin, statin, heparin for anticoagulation -Likely embolic strokes for underlying atrial fibrillation, possible sepsis related Plan: -Strokes look over 48 hours old -Blood pressure control -Neurochecks -NIH stroke scale -We will order a bubble contrast echo for Eisenmenger syndrome Respiratory failure with hypoxia -Currently on 7 L -Continue nebulizer treatments -Secondary to pneumonia -Possible underlying pulmonary emboli, cannot undergo CT angiogram due to creatinine, ventilation/perfusion scan cannot be performed as She is r/o T/B -Fluid overload secondary to pulmonary edema, elevated BNP, CHF, pulmonary hypertension has resolved -Continue broad-spectrum antibiotics -Lasix as needed -Initially on heparin drip then switched to lovenox and now therapeutic Ac has been stopped as the patient is having hemoptysis, and my clinical suspicion for P/E is low. #Pulmonary hypertension, pulmonary arterial pressure 50 mmHg Sepsis: Meets criteria with elevated white blood cell count, tachycardia tachypnea. Also additionally with signs of endorgan failure including hypoxic respiratory failure, acute kidney injury. Subjective fever and chills also reported at home, currently afebrile since presentation into the ER. Fluid supplementation not initiated as patient is clinically euvolemic, elevated BNP 27,000 may have underlying CHF additionally. Blood culture taken prior to initiation of antibiotics Start empiric antibiotic coverage with Zosyn, vancomycin and doxycycline for atypical coverage All antibiotics to be renally dosed. Preliminarily source appears to be worsening pneumonia. Chest x-ray with right lower lobe infiltrate. supplemental 02 to keep saturation >92% Duoneb and budesonide inhalation, hold off on steroids for now COVID, MRSA PCR, sputum gram stain and cx, influenza ag negative unvaccinated for COVID and Flu # Pneumonia: Complicated by aspiration pneumonia, has significant choking. clinically worsening as above. Abx coverage as above Modified barium study: Significant episodes of aspiration or laryngeal penetration with thin liquids and to a lesser extent the thicker liquids.Mild esophageal dysmotility. Has been started on dysphagia level 1 diet. -Also with elevated D dimer, worsening dyspnea, and h/o May thruner syndrome, high suspicion for pulmonary embolism. Cannot obtain CTA chest due to DEBRA. Check LE venous duplex negative for DVT and echocardiogram for right heart strain no significant heart strain, right side heart failure . Start presumptive anticoagulation with heparind drip Currently cannot undergo a ventilation/perfusion scan as under COVID-19 precautions, once COVID-19 comes back negative will order ventilation/perfusion scan # elevated troponin : May be related to NSTEMI vs posisble PE. Echocardiogram Normal left ventricular size and systolic function, EF 58 %. No regional wall motion abnormalities. Normal right ventricular size and systolic function. Mild biatrial enlargement. Thickened aortic and mitral valves Moderate tricuspid valve regurgitation. Moderate pulmonary hypertension with a peak pulmonary artery systolic pressure of 58 and a mean pressure of 30 mmHg. Trace pulmonary valve regurgitation. Mild mitral valve regurgitation. There is no pericardial effusion. There are no intracardiac masses. Heparin a/c presumptively Continue ASA 81mg po daily Continue atorvastatin # DEBRA : Cr up to 3.4, up from 1.3 on 03/11. No past h/o CKD per patient Check bladder scan, renal US, urine lytes Renally dose all abx Hold NSAIDs, HCTZ and losartan Continue carvedilol Consult nephrology # A fib, status post ablation, currently rate controlled. Continue Coreg. Patient not on a/c as outpatient. # Transaminitis : likely from sepsis. Abdominal imaging if continues to worsen. Normal T.bili, mild elevation ALP to 117. Anemia, baseline hemoglobin unknown, continue Protonix 40 IV twice daily History of adrenal mass, known, continue to monitor, CT scan abdomen pelvis 1. There is a 3.0 cm isodense right adrenal mass. This is not fully evaluated due the lack of IV contrast. Dedicated CT scan of the adrenal glands with and without contrast or chemical shift MRI is advised. (Reference: [facility]) 2. Atherosclerotic calcified aorta with calcification and stenosis at the origins of the mesenteric and renal arteries. 3. Mild diverticulosis. 4. No acute abnormalities are seen in the abdomen and pelvis. Attestations Medical Necessity Statement*: Patient needs to be in the hospital for the management of above defined problems. 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 Sepsis A41.9; R65.20; N17.9 Sepsis type: sepsis due to unspecified organism Sepsis acute organ dysfunction status: with acute organ dysfunction Severe sepsis acute organ dysfunction type: acute renal failure Acute renal failure type: unspecified Severe sepsis shock status: without septic shock Community acquired pneumonia J18.9 Laterality: right Lung location: lower lobe of lung Elevated troponin R77.8 Hypertension I10 Hypertension type: unspecified A-fib I48.91 Atrial fibrillation type: unspecified May-Thurner syndrome I87.1 Respiratory failure with hypoxia J96.01 Chronicity: acute Acute kidney injury N17.9 Acute CVA (cerebrovascular accident) I63.9 Adrenal mass E27.8 NSTEMI (non-ST elevated myocardial infarction) I21.4 Hyponatremia E87.1 Anemia D64.9 Hemoptysis R04.2
[2021-03-20] MEDS: zolpidem 5 mg Tablet 10 MG PO (21:35)
[2021-03-20] MEDS: atorvastatin 40 mg Tablet PO (21:35)
[2021-03-20] MEDS: vancomycin 1,000 MG in sodium chloride 0.9% 250 ML 250 MG IV (21:36)
[2021-03-21] VITALS (12 sets, daily range): BP systolic 146–176; BP diastolic 73–83; PULSE 70–88; RESP 16–23; TEMP 36.4–36.9; O2SAT 88–97
--- NOTE | 2021-03-21 04:07 | PC.NURSE ---
No vital signs per RN
[2021-03-21] MEDS: pantoprazole 40 mg SDV IVP ×2 (05:28→16:55)
[2021-03-21 06:07] LABS: Basophils % 0.2 %; Eosinophils % 0.1 %; Hematocrit 27.7 % (37.0-47.0); Hemoglobin 8.5 g/dL (11.5-15.3); Lymphocytes # 0.5 10^3/uL (0.8-4.8); Lymphocytes % 3.4 %; Mean Corpuscular HGB Conc 30.7 g/dL (30.0-36.0); Mean Corpuscular Hemoglobin 29.2 pg (28.0-34.0); Mean Corpuscular Volume 95.2 fl (81-99); Mean Platelet Volume 9.8 fL (7.4-10.4); Monocytes # 0.7 10^3/uL (0.2-0.9); Monocytes % 4.7 %; Neutrophils % 80.7 %; Nucleated Red Blood Cells % 0 %; Platelet Count 135 10^3/cmm (130-400); Red Blood Count 2.91 10^6/uL (4.1-5.3); Red Cell Distribution Width 13.3 % (12.1-15.1); White Blood Count 14.5 10^3/uL (4.0-10.0)
[2021-03-21] MEDS: sucralfate 1 gm Tablet PO ×4 (06:32→21:19)
[2021-03-21 06:37] LABS: Blood Urea Nitrogen 49 mg/dL (8-23); Calcium 8.6 mg/dL (8.5-10.5); Carbon Dioxide 25 mmol/L (22-29); Chloride 110 mmol/L (98-107); Glomerular Filtration Rate 29.8 mL/min (90-130); Glucose 143 mg/dL (65-115); Osmolality Calculated 319 mOsm/kg (285-295); Sodium 147 mmol/L (136-145)
[2021-03-21 06:38] LABS: Magnesium 2.2 mg/dL (1.7-2.3); Phosphorus 3.2 mg/dL (2.5-4.5)
[2021-03-21 06:47] LABS: Slide Review Slide Review Perform
--- NOTE | 2021-03-21 08:03 | PM.PN ---
Subjective Subjective: Interval history: feels better. on chronic nc 02, still wheezing. no n/v/f/c/best/d Medications: Reviewed: Yes Medication Review Details: Current Medications Acetaminophen (Acetaminophen 325 Mg Tablet) 650 mg PO Q6H PRN PRN Reason: Mild/Mod Pain Or Temp >/= 101 Last Admin: 03/16/21 00:33 Dose: 650 mg Documented by: Acetylcysteine (Acetylcysteine 200 Mg/Ml Sdv 4 Ml) 100 mg INHALATION Q6H MARIAM Last Admin: 03/21/21 03:07 Dose: Not Given Documented by: Albuterol/Ipratropium (Ipratropium-Albuterol 3 Ml Neb) 3 ml INHALATION Q6H.RESPIRATORY MARIAM Last Admin: 03/21/21 03:07 Dose: Not Given Documented by: Aspirin (Aspirin 81 Mg Ec Tablet) 81 mg PO DAILY MARIAM Last Admin: 03/20/21 09:05 Dose: 81 mg Documented by: Atorvastatin Calcium (Atorvastatin 40 Mg Tablet) 40 mg PO BEDTIME MARIAM Last Admin: 03/20/21 21:35 Dose: 40 mg Documented by: Budesonide (Budesonide 0.5 Mg/2 Ml Neb) 0.5 mg INHALATION BID.RESPIRATORY MARIAM Last Admin: 03/20/21 21:18 Dose: 0.5 mg Documented by: Carvedilol (Carvedilol 25 Mg Tablet) 25 mg PO BID@0900,2100 [facility] Last Admin: 03/20/21 21:35 Dose: 25 mg Documented by: Gabapentin (Gabapentin 300 Mg Capsule) 300 mg PO TID MARIAM Last Admin: 03/20/21 21:36 Dose: 300 mg Documented by: Guaifenesin (Guaifenesin 600 Mg Tablet) 600 mg PO BID MARIAM Last Admin: 03/20/21 18:41 Dose: 600 mg Documented by: Heparin Sodium (Porcine) (Heparin 5,000 Unit/Ml Inj 1 Ml) 5,000 unit SUBCUT Q12H MARIAM Doxycycline Hyclate 100 mg/ (Sodium Chloride) 100 mls @ 100 mls/hr IV Q12H MARIAM; Protocol Last Infusion: 03/20/21 22:35 Dose: Infused Documented by: Imipenem/Cilastatin Sodium 250 (mg/ Sodium Chloride) 100 mls @ 200 mls/hr IV Q12H [facility]; Protocol Last Infusion: 03/21/21 02:40 Dose: Infused Documented by: Vancomycin HCl 1,000 mg/ (Sodium Chloride) 250 mls @ 250 mls/hr IV Q24H MARIAM Last Infusion: 03/21/21 02:43 Dose: Infused Documented by: Lanolin (Lanolin Oint 7 Gm) 1 applic TOPICAL PRN PRN PRN Reason: DRYNESS Last Admin: 03/18/21 15:31 Dose: 1 applic Documented by: Lorazepam (Lorazepam 2 Mg/Ml Inj 1 Ml) 0.5 mg IVP Q8H PRN PRN Reason: ANXIETY Last Admin: 03/17/21 09:32 Dose: 0.5 mg Documented by: Methylprednisolone Sodium Succinate (Methylprednisolone Sod Succ 40 Mg/Ml Inj) 40 mg IVP Q12H MARIAM Last Admin: 03/21/21 02:37 Dose: 40 mg Documented by: Non-Formulary Medication (Cholecalciferol (Vitamin D3)) 25 mcg PO DAILY MARIAM Non-Formulary Medication (Niacin) 1,000 mg PO DAILY MARIAM Ondansetron HCl (Ondansetron 2 Mg/Ml Sdv 2 Ml) 4 mg IVP Q8H PRN PRN Reason: vomiting, or N/V if npo Pantoprazole Sodium (Pantoprazole 40 Mg Sdv) 40 mg IVP Q12H MARIAM Last Admin: 03/21/21 05:28 Dose: 40 mg Documented by: Sodium Chloride (Saline Nasal [place] 44ml Btl) 1 spray NASAL PRN PRN PRN Reason: DRYNESS Last Admin: 03/19/21 12:39 Dose: 1 spray Documented by: Sucralfate (Sucralfate 1 Gm Tablet) 1 gm PO AC&BEDTIME MARIAM Last Admin: 03/21/21 06:32 Dose: 1 gm Documented by: Zolpidem Tartrate (Zolpidem 5 Mg Tablet) 10 mg PO BEDTIME MARIAM Last Admin: 03/20/21 21:35 Dose: 10 mg Documented by: Vitals/I&O/Wt Last Vital Signs Temp 98.4 F 03/21/21 04:00 Pulse 70 03/21/21 06:00 Resp 23 H 03/21/21 04:00 BP 175/83 03/21/21 04:00 Pulse Ox 92 03/21/21 04:00 03/20/21 03/21/21 03/21/21 22:59 06:59 14:59 Intake Total 100 / 300 350 / 650 Output Total 1100 / 1100 725 / 1825 Balance -1000 / -800 -375 / -1175 Physical Exam Narrative: EXAM NARRATIVE: elderly female on nc 02 vs noted heent- nc/at, eomi, anicteric neck supple lungs- improving. still w/ b/l wheezes heart reg abd soft, nt, +BS ext 1+ leg edema neuro- a,a, o x 3 Urinary Catheter Management^: Bermudez: Cath Placed During This Visit: yes Reason for Continuing Indwelling Catheter: Acute Urinary Retention or Obstruction Urinary Catheter Date of Insertion: 03/16/21 Urinary Catheter Time of Insertion: 13:59 Data : 03/21/21 05:18 03/21/21 05:18 Micro: Microbiology 03/15/21 20:55 Blood Culture - Final Blood NO GROWTH AFTER 5 DAYS 03/15/21 20:24 Blood Culture - Final Blood NO GROWTH AFTER 5 DAYS A&P Additional A&P Information 1. Acute renal failure Creatinine now significantly improving. Strict I's and O's Dose medication for CKD stage 3- and adjust as cr continues to improve -F/U SEROLOGIES- OFF OF STEROIDS has a + ALISSA 1:80 -likely from infection 2. electrolytes- hypernatremia- hold diuretics- encourage water -will give d5w for 1 liter -monitor uop and chemistries - replace k 3. PNA- renal dose abx -monitor vanco trough. please keep under 19 3b. resp failure- sob per medicine. EF 58%, BNP improving 4. CVA and a fib- per medicine Hypertension Blood pressure is high. 5. h/o adrenal mass 6. 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
[2021-03-21] MEDS: guaiFENesin 600 mg Tablet PO ×2 (08:04→16:54)
[2021-03-21] MEDS: aspirin 81 mg EC Tablet PO (08:05)
[2021-03-21] MEDS: carvedilol 25 mg Tablet PO ×2 (08:05→21:19)
[2021-03-21] MEDS: gabapentin 300 mg Capsule PO ×3 (08:06→21:19)
[2021-03-21] MEDS: doxycycline 100 MG in sodium chloride 0.9% (plus) 100 ML IV ×2 (08:18→21:18)
--- NOTE | 2021-03-21 09:00 | PC.SLP ---
Consulted with nursing. Pt remains high aspiration risk. Tolerating current diet (pureed and pudding thick liquids about 50%
[2021-03-21] MEDS: ipratropium-albuterol 3 mL Neb INHALATION ×3 (09:08→20:06)
[2021-03-21] MEDS: acetylcysteine 200 mg/mL SDV 4 mL 100 MG INHALATION ×3 (09:08→20:06)
[2021-03-21] MEDS: budesonide 0.5 mg/2 mL Neb INHALATION ×2 (09:08→20:06)
--- NOTE | 2021-03-21 10:26 | PC.SLP ---
Nursing reports pt is tolerating current diet (pureed and pudding thick liquids), with occasional s/s aspiration. Pt able to feed herself, however does not remain upright independently. Discussed risks with patient's nurse, and recommendations for tray to be removed after mealtimes to minimize risk of aspiration with oral intake while lying down.
[2021-03-21] MEDS: hyDRALAzine 25 mg Tablet PO ×2 (10:51→16:55)
[2021-03-21] MEDS: dextrose 5% 1,000 ML 75 ML IV (10:54)
--- NOTE | 2021-03-21 19:40 | PM.PN ---
Subjective Subjective: Interval history: Patient was seen and examined this morning, continues to complain of cough, no significant hemoptysis noted today, BUN serum creatinine continues to improve, likely polyuric phase of ATN as she has robust urine output. Developing hypernatremia. Medications: Reviewed: Yes Medication Review Details: Current Medications Acetaminophen (Acetaminophen 325 Mg Tablet) 650 mg PO Q6H PRN PRN Reason: Mild/Mod Pain Or Temp >/= 101 Last Admin: 03/16/21 00:33 Dose: 650 mg Documented by: Acetylcysteine (Acetylcysteine 200 Mg/Ml Sdv 4 Ml) 100 mg INHALATION Q6H MARIAM Last Admin: 03/20/21 03:08 Dose: 100 mg Documented by: Albuterol/Ipratropium (Ipratropium-Albuterol 3 Ml Neb) 3 ml INHALATION Q6H.RESPIRATORY MARIAM Last Admin: 03/20/21 09:13 Dose: 3 ml Documented by: Aspirin (Aspirin 81 Mg Ec Tablet) 81 mg PO DAILY MARIAM Last Admin: 03/20/21 09:05 Dose: 81 mg Documented by: Atorvastatin Calcium (Atorvastatin 40 Mg Tablet) 40 mg PO BEDTIME MARIAM Last Admin: 03/19/21 21:41 Dose: 40 mg Documented by: Budesonide (Budesonide 0.5 Mg/2 Ml Neb) 0.5 mg INHALATION BID.RESPIRATORY MARIAM Last Admin: 03/20/21 09:13 Dose: 0.5 mg Documented by: Carvedilol (Carvedilol 25 Mg Tablet) 25 mg PO BID@0900,2100 MARIAM Last Admin: 03/20/21 09:05 Dose: 25 mg Documented by: Enoxaparin Sodium (Enoxaparin 100 Mg/Ml Syringe) 90 mg 1 mg/kg (90 mg) SUBCUT Q24H MARIAM Last Admin: 03/19/21 12:31 Dose: 90 mg Documented by: Gabapentin (Gabapentin 300 Mg Capsule) 300 mg PO TID MARIAM Last Admin: 03/20/21 09:05 Dose: 300 mg Documented by: Guaifenesin (Guaifenesin 600 Mg Tablet) 600 mg PO BID MARIAM Last Admin: 03/20/21 09:04 Dose: 600 mg Documented by: Doxycycline Hyclate 100 mg/ (Sodium Chloride) 100 mls @ 100 mls/hr IV Q12H MARIAM; Protocol Last Admin: 03/20/21 09:13 Dose: 100 mls/hr Documented by: Imipenem/Cilastatin Sodium 250 (mg/ Sodium Chloride) 100 mls @ 200 mls/hr IV Q12H MARIAM; Protocol Last Infusion: 03/20/21 00:31 Dose: Infused Documented by: Vancomycin HCl 1,000 mg/ (Sodium Chloride) 250 mls @ 250 mls/hr IV Q24H MARIAM Lanolin (Lanolin Oint 7 Gm) 1 applic TOPICAL PRN PRN PRN Reason: DRYNESS Last Admin: 03/18/21 15:31 Dose: 1 applic Documented by: Lorazepam (Lorazepam 2 Mg/Ml Inj 1 Ml) 0.5 mg IVP Q8H PRN PRN Reason: ANXIETY Last Admin: 03/17/21 09:32 Dose: 0.5 mg Documented by: Methylprednisolone Sodium Succinate (Methylprednisolone Sod Succ 40 Mg/Ml Inj) 40 mg IVP Q12H MARIAM Last Admin: 03/20/21 02:45 Dose: 40 mg Documented by: Non-Formulary Medication (Cholecalciferol (Vitamin D3)) 25 mcg PO DAILY MARIAM Non-Formulary Medication (Niacin) 1,000 mg PO DAILY MARIAM Ondansetron HCl (Ondansetron 2 Mg/Ml Sdv 2 Ml) 4 mg IVP Q8H PRN PRN Reason: vomiting, or N/V if npo Pantoprazole Sodium (Pantoprazole 40 Mg Sdv) 40 mg IVP Q12H MARIAM Last Admin: 03/20/21 06:13 Dose: 40 mg Documented by: Sodium Chloride (Saline Nasal Paradox 44ml Btl) 1 spray NASAL PRN PRN PRN Reason: DRYNESS Last Admin: 03/19/21 12:39 Dose: 1 spray Documented by: Sucralfate (Sucralfate 1 Gm Tablet) 1 gm PO AC&BEDTIME MARIAM Last Admin: 03/20/21 06:13 Dose: 1 gm Documented by: Zolpidem Tartrate (Zolpidem 5 Mg Tablet) 10 mg PO BEDTIME MARIAM Last Admin: 03/19/21 21:41 Dose: 10 mg Documented by: Vitals/I&O/Wt Last Vital Signs Temp 97.5 F L 03/21/21 15:11 Pulse 75 03/21/21 15:11 Resp 18 03/21/21 15:11 BP 154/82 03/21/21 15:11 Pulse Ox 92 03/21/21 15:11 03/21/21 03/21/21 03/21/21 06:59 14:59 22:59 Intake Total 350 / 650 1110 / 1110 340 / 1450 Output Total 725 / 1825 1000 / 1000 Balance -375 / -1175 110 / 110 340 / 450 Physical Exam Narrative: EXAM NARRATIVE: Alert and awake HENMT: COMMON NORMALS: normocephalic and atraumatic HEAD & SCALP: normocephalic and atraumatic Chest: CHEST: Yes Symmetrical chest wall rise Resp: OTHER: Bilateral wheezing present in both lungs joseph Cardio: COMMON NORMALS: regular rate, regular rhythm, S1 normal heart sound present, S2 normal heart sound present, No gallops present (Cardio), No murmurs present (Cardio), No rub (Cardio) and Peripheral pulses 2+ throughout RATE: regular rate RHYTHM: regular rhythm HEART SOUNDS: S1 normal heart sound present and S2 normal heart sound present PERIPHERAL PULSES: Peripheral pulses 2+ throughout GI: COMMON NORMALS: Normal to inspection, nondistended, normoactive bowel sounds present, Soft to palpation, non-tender, No hepatosplenomegaly present and no masses AUSCULTATION: Yes normoactive bowel sounds PALPATION: Yes Soft to palpation and Yes No hepatosplenomegaly present RECTAL EXAM: deferred Extremity: COMMON NORMALS: no clubbing, cyanosis or edema and no pedal edema Urinary Catheter Management^: Bermudez: Cath Placed During This Visit: yes Reason for Continuing Indwelling Catheter: Acute Urinary Retention or Obstruction Urinary Catheter Date of Insertion: 03/16/21 Urinary Catheter Time of Insertion: 13:59 Data : 03/21/21 05:18 03/21/21 05:18 Micro: Microbiology 03/15/21 20:55 Blood Culture - Final Blood NO GROWTH AFTER 5 DAYS 03/15/21 20:24 Blood Culture - Final Blood NO GROWTH AFTER 5 DAYS A&P Assessment and plan (1) Sepsis: Status: Acute Qualifiers: Sepsis type: sepsis due to unspecified organism Sepsis acute organ dysfunction status: with acute organ dysfunction Severe sepsis acute organ dysfunction type: acute renal failure Acute renal failure type: unspecified Severe sepsis shock status: without septic shock Qualified Code(s): A41.9 - Sepsis, unspecified organism; R65.20 - Severe sepsis without septic shock; N17.9 - Acute kidney failure, unspecified (2) Community acquired pneumonia: Status: Acute Qualifiers: Laterality: right Lung location: lower lobe of lung Qualified Code(s): J18.9 - Pneumonia, unspecified organism (3) Elevated troponin: Status: Acute (4) Hypertension: Status: Acute Qualifiers: Hypertension type: unspecified Qualified Code(s): I10 - Essential (primary) hypertension (5) A-fib: Status: Acute Qualifiers: Atrial fibrillation type: unspecified Qualified Code(s): I48.91 - Unspecified atrial fibrillation (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 Pending QuantiFERON gold for tuberculosis work-up. Status: Acute (15) Hypernatremia: Status: Acute Additional A&P Information Patient with a notable past medical history of hypertension, May Thurner syndrome, atrial fibrillation not currently on any anticoagulation presenting with worsening dyspnea increasing cough expectoration and hemoptysis at least over the last 3 weeks, without improvement on outpatient course of Augmentin on levofloxacin. Admit to ICU in view of sepsis and multiorgan failure Acute CVA: -Currently denies any focal neurologic deficits, no blurry vision, symptoms of blurry vision started over 48 hours ago, out of TPA window, NIH stroke scale 0 -MRI of the brain shows: There are innumerable bilateral foci of abnormal signal on the diffusion-weighted scans in the temporoparietal occipital lobes, the cerebellum and thalami consistent with numerous small nonhemorrhagic acute infarcts. These are most likely embolic in nature. -Has a history of atrial fibrillation not on anticoagulation, had an ablation procedure in 2007 -Does have evidence of sepsis secondary to pneumonia -Did consult neurologist to [facility], agreed with aspirin, statin, heparin for anticoagulation -Likely embolic strokes for underlying atrial fibrillation, possible sepsis related Plan: -Strokes look over 48 hours old -Blood pressure control -Neurochecks -NIH stroke scale -We will order a bubble contrast echo for Eisenmenger syndrome Respiratory failure with hypoxia -Currently on 7 L -Continue nebulizer treatments -Secondary to pneumonia -Possible underlying pulmonary emboli, cannot undergo CT angiogram due to creatinine, ventilation/perfusion scan cannot be performed as She is r/o T/B -Fluid overload secondary to pulmonary edema, elevated BNP, CHF, pulmonary hypertension has resolved -Continue broad-spectrum antibiotics -Lasix as needed -Initially on heparin drip then switched to lovenox and now therapeutic Ac has been stopped as the patient is having hemoptysis, and my clinical suspicion for P/E is low. #Pulmonary hypertension, pulmonary arterial pressure 50 mmHg Sepsis: Meets criteria with elevated white blood cell count, tachycardia tachypnea. Also additionally with signs of endorgan failure including hypoxic respiratory failure, acute kidney injury. Subjective fever and chills also reported at home, currently afebrile since presentation into the ER. Fluid supplementation not initiated as patient is clinically euvolemic, elevated BNP 27,000 may have underlying CHF additionally. Blood culture taken prior to initiation of antibiotics Start empiric antibiotic coverage with Zosyn, vancomycin and doxycycline for atypical coverage All antibiotics to be renally dosed. Preliminarily source appears to be worsening pneumonia. Chest x-ray with right lower lobe infiltrate. supplemental 02 to keep saturation >92% Duoneb and budesonide inhalation, hold off on steroids for now COVID, MRSA PCR, sputum gram stain and cx, influenza ag negative unvaccinated for COVID and Flu # Pneumonia: Complicated by aspiration pneumonia, has significant choking. clinically worsening as above. Abx coverage as above Modified barium study: Significant episodes of aspiration or laryngeal penetration with thin liquids and to a lesser extent the thicker liquids.Mild esophageal dysmotility. Has been started on dysphagia level 1 diet. -Also with elevated D dimer, worsening dyspnea, and h/o May thruner syndrome, high suspicion for pulmonary embolism. Cannot obtain CTA chest due to DEBRA. Check LE venous duplex negative for DVT and echocardiogram for right heart strain no significant heart strain, right side heart failure . Start presumptive anticoagulation with heparind drip Currently cannot undergo a ventilation/perfusion scan as under COVID-19 precautions, once COVID-19 comes back negative will order ventilation/perfusion scan # elevated troponin : May be related to NSTEMI vs posisble PE. Echocardiogram Normal left ventricular size and systolic function, EF 58 %. No regional wall motion abnormalities. Normal right ventricular size and systolic function. Mild biatrial enlargement. Thickened aortic and mitral valves Moderate tricuspid valve regurgitation. Moderate pulmonary hypertension with a peak pulmonary artery systolic pressure of 58 and a mean pressure of 30 mmHg. Trace pulmonary valve regurgitation. Mild mitral valve regurgitation. There is no pericardial effusion. There are no intracardiac masses. Heparin a/c presumptively Continue ASA 81mg po daily Continue atorvastatin # DEBRA : Cr up to 3.4, up from 1.3 on 03/11. No past h/o CKD per patient renal US: Normal kidneys. 2.6 cm in the determinate mass in the right adrenal gland. Renally dose all abx Hold NSAIDs, HCTZ and losartan Continue carvedilol Consult nephrology # A fib, status post ablation, currently rate controlled. Continue Coreg. Patient not on a/c as outpatient. # Transaminitis : likely from sepsis. Abdominal imaging if continues to worsen. Normal T.bili, mild elevation ALP to 117. #Hypernatremia : Hypovolemic Hypernatremia: Currently on D5 water with 75 cc an hour an hour Anemia, baseline hemoglobin unknown, continue Protonix 40 IV twice daily History of adrenal mass, known, continue to monitor, CT scan abdomen pelvis 1. There is a 3.0 cm isodense right adrenal mass. This is not fully evaluated due the lack of IV contrast. Dedicated CT scan of the adrenal glands with and without contrast or chemical shift MRI is advised. (Reference: [facility]) 2. Atherosclerotic calcified aorta with calcification and stenosis at the origins of the mesenteric and renal arteries. 3. Mild diverticulosis. 4. No acute abnormalities are seen in the abdomen and pelvis. Attestations Medical Necessity Statement*: Patient needs to be in hospital for management of above defined problems. 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 Diagnoses Sepsis A41.9; R65.20; N17.9 Sepsis type: sepsis due to unspecified organism Sepsis acute organ dysfunction status: with acute organ dysfunction Severe sepsis acute organ dysfunction type: acute renal failure Acute renal failure type: unspecified Severe sepsis shock status: without septic shock Community acquired pneumonia J18.9 Laterality: right Lung location: lower lobe of lung Elevated troponin R77.8 Hypertension I10 Hypertension type: unspecified A-fib I48.91 Atrial fibrillation type: unspecified May-Thurner syndrome I87.1 Respiratory failure with hypoxia J96.01 Chronicity: acute Acute kidney injury N17.9 Acute CVA (cerebrovascular accident) I63.9 Adrenal mass E27.8 NSTEMI (non-ST elevated myocardial infarction) I21.4 Hyponatremia E87.1 Anemia D64.9 Hemoptysis R04.2 Hypernatremia E87.0
[2021-03-21] MEDS: atorvastatin 40 mg Tablet PO (21:19)
[2021-03-21] MEDS: vancomycin 1,000 MG in sodium chloride 0.9% 250 ML 250 MG IV (22:32)
--- NOTE | 2021-03-21 23:56 | PC.NURSE ---
MEDICATION NOTE: WHEN THIS NURSE WENT TO FINISH THE PATIENT'S IV MEDICATION THAT WAS RUNNING, IT WAS NOTED THAT THE LAST DOSE OF PRIMAXIN WAS NEVER STARTED. THIS NURSE RESTARTED THE MEDICATION WHEN THIS WAS NOTED AND RETIMED THE SCHEDULE FOR FUTURE ADMINISTRATION.
[2021-03-22] VITALS (12 sets, daily range): BP systolic 111–188; BP diastolic 64–89; PULSE 61–82; RESP 16–28; TEMP 36.4–36.9; O2SAT 89–98
[2021-03-22] MEDS: acetylcysteine 200 mg/mL SDV 4 mL 100 MG INHALATION ×3 (02:44→15:10)
[2021-03-22] MEDS: ipratropium-albuterol 3 mL Neb INHALATION ×4 (02:44→21:13)
[2021-03-22] MEDS: pantoprazole 40 mg SDV IVP ×2 (05:42→17:33)
[2021-03-22 06:08] LABS: Hematocrit 28.5 % (37.0-47.0); Hemoglobin 8.9 g/dL (11.5-15.3); Mean Corpuscular HGB Conc 31.2 g/dL (30.0-36.0); Mean Corpuscular Hemoglobin 29.2 pg (28.0-34.0); Mean Corpuscular Volume 93.4 fl (81-99); Mean Platelet Volume 9.6 fL (7.4-10.4); Platelet Count 176 10^3/cmm (130-400); Red Blood Count 3.05 10^6/uL (4.1-5.3); Red Cell Distribution Width 13.3 % (12.1-15.1); White Blood Count 18.1 10^3/uL (4.0-10.0)
[2021-03-22 06:28] LABS: Vancomycin Random 21.8 ug/mL (20.0-40.0)
[2021-03-22 06:31] LABS: Anion Gap 14.3 (5-19); Blood Urea Nitrogen 38 mg/dL (8-23); Calcium 8.6 mg/dL (8.5-10.5); Carbon Dioxide 25 mmol/L (22-29); Chloride 108 mmol/L (98-107); Glomerular Filtration Rate 37.3 mL/min (90-130); Glucose 106 mg/dL (65-115); Magnesium 1.9 mg/dL (1.7-2.3); Osmolality Calculated 307 mOsm/kg (285-295); Phosphorus 3.4 mg/dL (2.5-4.5); Potassium 3.3 mmol/L (3.5-5.1); Sodium 144 mmol/L (136-145)
--- NOTE | 2021-03-22 06:49 | PM.PN ---
Subjective Subjective: Interval history: see does not feel well today, feels cold and weak Medications: Reviewed: Yes Vitals/I&O/Wt Last Vital Signs Temp 97.9 F 03/22/21 04:00 Pulse 70 03/22/21 04:00 Resp 18 03/22/21 04:00 BP 111/64 03/22/21 04:00 Pulse Ox 92 03/22/21 02:45 03/21/21 03/21/21 03/22/21 14:59 22:59 06:59 Intake Total 1110 / 1110 1640 / 2750 550 / 3300 Output Total 1000 / 1000 Balance 110 / 110 1640 / 1750 550 / 2300 Physical Exam Const: COMMON NORMALS: no acute distress GENERAL APPEARANCE: cooperative Urinary Catheter Management^: Bermudez: Cath Placed During This Visit: yes Reason for Continuing Indwelling Catheter: Acute Urinary Retention or Obstruction Urinary Catheter Date of Insertion: 03/16/21 Urinary Catheter Time of Insertion: 13:59 Data : 03/22/21 05:30 03/22/21 05:30 Other Labs: calcium 8.6, phos 3.9, Mg 1.9 vanco 21.8 A&P Additional A&P Information seen and examined via telemedicine with assistance of bedside RN 1. Acute kidney injury, improving 2. Hypokalemia 3. Anemia 4. 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
[2021-03-22 07:15] LABS: Slide Review Slide Review Perform
[2021-03-22 07:18] LABS: Absolute Segmented Neutrophil 16.1 10/cmm (1.6-7.1); Band Neutrophils Absolute 0.4 10^3/cmm (0.0-1.2); Eosinophils 0 %; Lymphocytes 1 %; Lymphocytes Absolute 0.2 10^3/cmm (1.2-3.4); Monocytes Absolute 0.5 10^3/cmm (0.1-0.6); Segmented Neutrophils 89 %; Total Cells Counted 100 (0-100)
[2021-03-22 07:19] LABS: Absolute Neutrophil 16.5 10^3/cmm (1.4-6.5); Platelet Estimate Normal (Normal)
[2021-03-22 07:20] LABS: Anisocytosis Trace
[2021-03-22] MEDS: budesonide 0.5 mg/2 mL Neb INHALATION ×2 (08:00→21:13)
[2021-03-22] MEDS: gabapentin 300 mg Capsule PO ×3 (09:11→20:53)
[2021-03-22] MEDS: aspirin 81 mg EC Tablet PO (09:11)
[2021-03-22] MEDS: guaiFENesin 600 mg Tablet PO ×2 (09:11→17:32)
[2021-03-22] MEDS: hyDRALAzine 25 mg Tablet PO ×2 (09:11→17:33)
[2021-03-22] MEDS: carvedilol 25 mg Tablet PO ×2 (09:11→20:53)
[2021-03-22] MEDS: sucralfate 1 gm Tablet PO ×4 (09:11→20:53)
[2021-03-22] MEDS: doxycycline 100 MG in sodium chloride 0.9% (plus) 100 ML IV ×2 (09:18→20:56)
[2021-03-22] MEDS: potassium chloride ER 20 mEq Tablet 40 MEQ PO (12:10)
[2021-03-22 15:22] LABS: ANCA Screen NEGATIVE (NEGATIVE)
[2021-03-22 16:08] LABS: Osmolality Urine 359 mOsm/kg (50-1200)
--- NOTE | 2021-03-22 16:16 | PC.SOCIAL ---
IMM updated IMM dated and initialed and copy placed in chart
--- NOTE | 2021-03-22 19:27 | PC.NURSE ---
RESPIRATORY/OXYGEN NOTE: THE CAN CAME TO THIS NURSE AND REPORTED UPON ENTERING THE ROOM THE PATIENT'S OXYGEN WAS AT 64%. FURTHER INSPECTION SHOWED SHE DID NOT HAVE HER NASAL CANNULA ATTACHED TO THE OXYGEN ON THE WALL. THIS NURSE APPLIED A NON REBREATHER OXYGEN MASK AND PATIENT'S OXYGEN SLOWLY BEGAN TO TO CLIMB. RESPIRATORY CALLED AND NOTIFIED. ONCE PATIENT WAS AT 95% THIS NURSE ATTEMPTED TO REMOVE THE MASK AND PATIENT ASKED TO LEAVE IT IN PLACE. THIS NURSE EXPLAINED WITH HER OXYGEN AT 99-100% A DIFFERENT MASK WOULD BE MORE APPROPRIATE. AN OXY MASK WAS THEN APPLIED AT 5 LITERS O2. THE PATIENT'S OXYGEN LEVEL MAINTAINING AT 93-95% WITH THIS ADJUSTMENT. THE PATIENT STATES SHE FEELS MORE COMFORTABLE WITH THE MASK THAN A NASAL CANNULA.
--- NOTE | 2021-03-22 19:42 | PM.PN ---
Subjective Subjective: Interval history: Patient was seen and examined this morning, states that she is feeling tired. Medications: Reviewed: Yes Medication Review Details: Current Medications Acetaminophen (Acetaminophen 325 Mg Tablet) 650 mg PO Q6H PRN PRN Reason: Mild/Mod Pain Or Temp >/= 101 Last Admin: 03/16/21 00:33 Dose: 650 mg Documented by: Acetylcysteine (Acetylcysteine 200 Mg/Ml Sdv 4 Ml) 100 mg INHALATION Q6H MARIAM Last Admin: 03/20/21 03:08 Dose: 100 mg Documented by: Albuterol/Ipratropium (Ipratropium-Albuterol 3 Ml Neb) 3 ml INHALATION Q6H.RESPIRATORY MARIAM Last Admin: 03/20/21 09:13 Dose: 3 ml Documented by: Aspirin (Aspirin 81 Mg Ec Tablet) 81 mg PO DAILY MARIAM Last Admin: 03/20/21 09:05 Dose: 81 mg Documented by: Atorvastatin Calcium (Atorvastatin 40 Mg Tablet) 40 mg PO BEDTIME MARIAM Last Admin: 03/19/21 21:41 Dose: 40 mg Documented by: Budesonide (Budesonide 0.5 Mg/2 Ml Neb) 0.5 mg INHALATION BID.RESPIRATORY MARIAM Last Admin: 03/20/21 09:13 Dose: 0.5 mg Documented by: Carvedilol (Carvedilol 25 Mg Tablet) 25 mg PO BID@0900,2100 MARIAM Last Admin: 03/20/21 09:05 Dose: 25 mg Documented by: Enoxaparin Sodium (Enoxaparin 100 Mg/Ml Syringe) 90 mg 1 mg/kg (90 mg) SUBCUT Q24H MARIAM Last Admin: 03/19/21 12:31 Dose: 90 mg Documented by: Gabapentin (Gabapentin 300 Mg Capsule) 300 mg PO TID MARIAM Last Admin: 03/20/21 09:05 Dose: 300 mg Documented by: Guaifenesin (Guaifenesin 600 Mg Tablet) 600 mg PO BID MARIAM Last Admin: 03/20/21 09:04 Dose: 600 mg Documented by: Doxycycline Hyclate 100 mg/ (Sodium Chloride) 100 mls @ 100 mls/hr IV Q12H MARIAM; Protocol Last Admin: 03/20/21 09:13 Dose: 100 mls/hr Documented by: Imipenem/Cilastatin Sodium 250 (mg/ Sodium Chloride) 100 mls @ 200 mls/hr IV Q12H MARIAM; Protocol Last Infusion: 03/20/21 00:31 Dose: Infused Documented by: Vancomycin HCl 1,000 mg/ (Sodium Chloride) 250 mls @ 250 mls/hr IV Q24H MARIAM Lanolin (Lanolin Oint 7 Gm) 1 applic TOPICAL PRN PRN PRN Reason: DRYNESS Last Admin: 03/18/21 15:31 Dose: 1 applic Documented by: Lorazepam (Lorazepam 2 Mg/Ml Inj 1 Ml) 0.5 mg IVP Q8H PRN PRN Reason: ANXIETY Last Admin: 03/17/21 09:32 Dose: 0.5 mg Documented by: Methylprednisolone Sodium Succinate (Methylprednisolone Sod Succ 40 Mg/Ml Inj) 40 mg IVP Q12H MARIAM Last Admin: 03/20/21 02:45 Dose: 40 mg Documented by: Non-Formulary Medication (Cholecalciferol (Vitamin D3)) 25 mcg PO DAILY MARIAM Non-Formulary Medication (Niacin) 1,000 mg PO DAILY MARIAM Ondansetron HCl (Ondansetron 2 Mg/Ml Sdv 2 Ml) 4 mg IVP Q8H PRN PRN Reason: vomiting, or N/V if npo Pantoprazole Sodium (Pantoprazole 40 Mg Sdv) 40 mg IVP Q12H MARIAM Last Admin: 03/20/21 06:13 Dose: 40 mg Documented by: Sodium Chloride (Saline Nasal [place] 44ml Btl) 1 spray NASAL PRN PRN PRN Reason: DRYNESS Last Admin: 03/19/21 12:39 Dose: 1 spray Documented by: Sucralfate (Sucralfate 1 Gm Tablet) 1 gm PO AC&BEDTIME MARIAM Last Admin: 03/20/21 06:13 Dose: 1 gm Documented by: Zolpidem Tartrate (Zolpidem 5 Mg Tablet) 10 mg PO BEDTIME MARIAM Last Admin: 03/19/21 21:41 Dose: 10 mg Documented by: Vitals/I&O/Wt Last Vital Signs Temp 97.7 F 03/22/21 16:00 Pulse 70 03/22/21 16:00 Resp 20 H 03/22/21 16:00 BP 121/69 03/22/21 12:00 Pulse Ox 93 03/22/21 16:00 11/26/21 11/26/21 11/26/21 06:59 14:59 22:59 Intake Total 550 / 3300 340 / 340 320 / 660 Balance 550 / 2300 340 / 340 320 / 660 Physical Exam Narrative: EXAM NARRATIVE: Alert and awake HENMT: COMMON NORMALS: normocephalic and atraumatic HEAD & SCALP: normocephalic and atraumatic Chest: CHEST: Yes Symmetrical chest wall rise Resp: OTHER: Bilateral coarse breath sounds Cardio: COMMON NORMALS: regular rate, regular rhythm, S1 normal heart sound present, S2 normal heart sound present, No gallops present (Cardio), No murmurs present (Cardio), No rub (Cardio) and Peripheral pulses 2+ throughout RATE: regular rate RHYTHM: regular rhythm HEART SOUNDS: S1 normal heart sound present and S2 normal heart sound present PERIPHERAL PULSES: Peripheral pulses 2+ throughout GI: COMMON NORMALS: Normal to inspection, nondistended, normoactive bowel sounds present, Soft to palpation, non-tender, No hepatosplenomegaly present and no masses AUSCULTATION: Yes normoactive bowel sounds PALPATION: Yes Soft to palpation and Yes No hepatosplenomegaly present RECTAL EXAM: deferred Extremity: COMMON NORMALS: no clubbing, cyanosis or edema and no pedal edema Urinary Catheter Management^: Bermudez: Cath Placed During This Visit: yes Reason for Continuing Indwelling Catheter: Acute Urinary Retention or Obstruction Urinary Catheter Date of Insertion: 03/16/21 Urinary Catheter Time of Insertion: 13:59 Data : 03/22/21 05:30 03/22/21 05:30 A&P Assessment and plan (1) Sepsis: Status: Acute Qualifiers: Sepsis type: sepsis due to unspecified organism Sepsis acute organ dysfunction status: with acute organ dysfunction Severe sepsis acute organ dysfunction type: acute renal failure Acute renal failure type: unspecified Severe sepsis shock status: without septic shock Qualified Code(s): A41.9 - Sepsis, unspecified organism; R65.20 - Severe sepsis without septic shock; N17.9 - Acute kidney failure, unspecified (2) Community acquired pneumonia: Status: Acute Qualifiers: Laterality: right Lung location: lower lobe of lung Qualified Code(s): J18.9 - Pneumonia, unspecified organism (3) Elevated troponin: Status: Acute (4) Hypertension: Status: Acute Qualifiers: Hypertension type: unspecified Qualified Code(s): I10 - Essential (primary) hypertension (5) A-fib: Status: Acute Qualifiers: Atrial fibrillation type: unspecified Qualified Code(s): I48.91 - Unspecified atrial fibrillation (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 Pending QuantiFERON gold for tuberculosis work-up. Status: Acute (15) Hypernatremia: Status: Acute Additional A&P Information Patient with a notable past medical history of hypertension, May Thurner syndrome, atrial fibrillation not currently on any anticoagulation presenting with worsening dyspnea increasing cough expectoration and hemoptysis at least over the last 3 weeks, without improvement on outpatient course of Augmentin on levofloxacin. Admit to ICU in view of sepsis and multiorgan failure Acute CVA: -Currently denies any focal neurologic deficits, no blurry vision, symptoms of blurry vision started over 48 hours ago, out of TPA window, NIH stroke scale 0 -MRI of the brain shows: There are innumerable bilateral foci of abnormal signal on the diffusion-weighted scans in the temporoparietal occipital lobes, the cerebellum and thalami consistent with numerous small nonhemorrhagic acute infarcts. These are most likely embolic in nature. -2D echo: Normal LV size and systolic function, EF 58%,NO RWMA, normal RV size and systolic function, moderate pulmonary hypertension. -Has a history of atrial fibrillation not on anticoagulation, had an ablation procedure in 2007 -Does have evidence of sepsis secondary to pneumonia -Did consult neurologist to [facility], agreed with aspirin, statin, heparin for anticoagulation - -Likely embolic strokes for underlying atrial fibrillation, possible sepsis related Plan: -Strokes look over 48 hours old -Blood pressure control -Neurochecks -NIH stroke scale #Respiratory failure with hypoxia -Currently on 4 L -Continue nebulizer treatments -Secondary to pneumonia -Possible underlying pulmonary emboli, cannot undergo CT angiogram due to creatinine, ventilation/perfusion scan cannot be performed as She is r/o T/B -Fluid overload secondary to pulmonary edema, elevated BNP, CHF, pulmonary hypertension has resolved -She has been on vancomycin ,Primaxin and doxycycline. Vancomycin was discontinued on 03/22 as MRSA is negative. -Lasix as needed -Initially on heparin drip then switched to lovenox and now therapeutic Ac has been stopped as the patient is having hemoptysis, and my clinical suspicion for P/E is low. #Scant hemoptysis: Likely secondary to chronic coughing, and due to recent possible anticoagulation use. TB QuantiFERON gold pending. ANCA negative Currently it has minimized with occasional scant hemoptysis. H&H is a stable. We will continue to monitor. #Pulmonary hypertension, pulmonary arterial pressure 50 mmHg #Sepsis: Meets criteria with elevated white blood cell count, tachycardia tachypnea. Also additionally with signs of endorgan failure including hypoxic respiratory failure, acute kidney injury. Subjective fever and chills also reported at home, currently afebrile since presentation into the ER. Fluid supplementation not initiated as patient is clinically euvolemic, elevated BNP 27,000 may have underlying CHF additionally. Blood culture taken prior to initiation of antibiotics Start empiric antibiotic coverage with Zosyn, vancomycin and doxycycline for atypical coverage All antibiotics to be renally dosed. Preliminarily source appears to be worsening pneumonia. Chest x-ray with right lower lobe infiltrate. supplemental 02 to keep saturation >92% Duoneb and budesonide inhalation, hold off on steroids for now COVID, MRSA PCR, sputum gram stain and cx, influenza ag negative unvaccinated for COVID and Flu # Pneumonia: Complicated by aspiration pneumonia, has significant choking. clinically worsening as above. Abx coverage as above Modified barium study: Significant episodes of aspiration or laryngeal penetration with thin liquids and to a lesser extent the thicker liquids.Mild esophageal dysmotility. Has been started on dysphagia level 1 diet. -Also with elevated D dimer, worsening dyspnea, and h/o May thruner syndrome, high suspicion for pulmonary embolism. Cannot obtain CTA chest due to DEBRA. Check LE venous duplex negative for DVT and echocardiogram for right heart strain no significant heart strain, right side heart failure . Start presumptive anticoagulation with heparind drip Currently cannot undergo a ventilation/perfusion scan as under COVID-19 precautions, once COVID-19 comes back negative will order ventilation/perfusion scan # elevated troponin : May be related to NSTEMI vs posisble PE. Echocardiogram Normal left ventricular size and systolic function, EF 58 %. No regional wall motion abnormalities. Normal right ventricular size and systolic function. Mild biatrial enlargement. Thickened aortic and mitral valves Moderate tricuspid valve regurgitation. Moderate pulmonary hypertension with a peak pulmonary artery systolic pressure of 58 and a mean pressure of 30 mmHg. Trace pulmonary valve regurgitation. Mild mitral valve regurgitation. There is no pericardial effusion. There are no intracardiac masses. Heparin a/c presumptively Continue ASA 81mg po daily Continue atorvastatin # DEBRA : Cr up to 3.4, up from 1.3 on 03/11. No past h/o CKD per patient renal US: Normal kidneys. 2.6 cm in the determinate mass in the right adrenal gland. Renally dose all abx Hold NSAIDs, HCTZ and losartan Continue carvedilol Consult nephrology # A fib, status post ablation, currently rate controlled. Continue Coreg. Patient not on a/c as outpatient. # Transaminitis : likely from sepsis. Abdominal imaging if continues to worsen. Normal T.bili, mild elevation ALP to 117. #Hypernatremia : Hypovolemic Hypernatremia: Currently on D5 water with 75 cc an hour an hour Anemia, baseline hemoglobin unknown, continue Protonix 40 IV twice daily History of adrenal mass, known, continue to monitor, CT scan abdomen pelvis 1. There is a 3.0 cm isodense right adrenal mass. This is not fully evaluated due the lack of IV contrast. Dedicated CT scan of the adrenal glands with and without contrast or chemical shift MRI is advised. (Reference: [facility]) 2. Atherosclerotic calcified aorta with calcification and stenosis at the origins of the mesenteric and renal arteries. 3. Mild diverticulosis. 4. No acute abnormalities are seen in the abdomen and pelvis. Disposition: Currently awaiting alf placement. Attestations Medical Necessity Statement*: Patient needs to be in hospital for management of above defined problems. Currently awaiting alf placement. Coding Level of Care Code Acute Clinical Fellow for [facility] F[facility] Diagnoses Sepsis A41.9; R65.20; N17.9 Sepsis type: sepsis due to unspecified organism Sepsis acute organ dysfunction status: with acute organ dysfunction Severe sepsis acute organ dysfunction type: acute renal failure Acute renal failure type: unspecified Severe sepsis shock status: without septic shock Community acquired pneumonia J18.9 Laterality: right Lung location: lower lobe of lung Elevated troponin R77.8 Hypertension I10 Hypertension type: unspecified A-fib I48.91 Atrial fibrillation type: unspecified May-Thurner syndrome I87.1 Respiratory failure with hypoxia J96.01 Chronicity: acute Acute kidney injury N17.9 Acute CVA (cerebrovascular accident) I63.9 Adrenal mass E27.8 NSTEMI (non-ST elevated myocardial infarction) I21.4 Hyponatremia E87.1 Anemia D64.9 Hemoptysis R04.2 Hypernatremia E87.0
[2021-03-22] MEDS: heparin 5,000 unit/mL INJ 1 mL 5000 UNIT SUBCUT (20:53)
[2021-03-22] MEDS: atorvastatin 40 mg Tablet PO (20:56)
[2021-03-22 22:30] LABS: Vancomycin Trough 13.2 ug/mL (10-15)
[2021-03-23] VITALS (15 sets, daily range): BP systolic 112–177; BP diastolic 64–86; PULSE 69–79; RESP 17–22; TEMP 36.7–37.1; O2SAT 89–96
[2021-03-23] MEDS: ipratropium-albuterol 3 mL Neb INHALATION ×4 (03:23→20:57)
[2021-03-23] MEDS: pantoprazole 40 mg SDV IVP ×2 (05:26→16:48)
[2021-03-23] MEDS: sucralfate 1 gm Tablet PO ×3 (06:22→21:29)
--- NOTE | 2021-03-23 08:19 | PM.PN ---
Subjective Subjective: Interval history: No change since yesterday Medications: Reviewed: Yes Vitals/I&O/Wt Last Vital Signs Temp 98.4 F 03/23/21 04:00 Pulse 76 03/23/21 04:00 Resp 17 03/23/21 04:00 BP 112/64 03/23/21 04:00 Pulse Ox 92 03/23/21 04:00 03/22/21 03/23/21 03/23/21 22:59 06:59 14:59 Intake Total 800 / 1140 700 / 1840 Balance 800 / 1140 700 / 1840 Physical Exam Urinary Catheter Management^: Galindo: Cath Placed During This Visit: yes Reason for Continuing Indwelling Catheter: Acute Urinary Retention or Obstruction Urinary Catheter Date of Insertion: 03/16/21 Urinary Catheter Time of Insertion: 13:59 Data : 03/23/21 11:49 03/23/21 07:19 Other Labs: Na 146, Ca 9, phos 3.5, Mg 2.1, K 3.5 A&P Additional A&P Information Seen and examined via telemedicine with assistance of bedside RN 1. Acute kidney injury, renal function improving 2. mild hypernatremia, Hypokalemia 3. Anemia Recommend: Increase oral water intake. galindo removed, it appears urinalysis was not sent. replace KCL po Attestations Medical Necessity Statement*: per primary service Time Spent in Patient Care: 16 - 35 minutes Coding Level of Care Code Acute Director Transportation for [place]
[2021-03-23 08:35] LABS: Magnesium 2.1 mg/dL (1.7-2.3); Phosphorus 3.5 mg/dL (2.5-4.5)
[2021-03-23] MEDS: aspirin 81 mg EC Tablet PO (09:04)
[2021-03-23] MEDS: carvedilol 25 mg Tablet PO ×2 (09:04→21:29)
[2021-03-23] MEDS: gabapentin 300 mg Capsule PO ×3 (09:04→21:29)
[2021-03-23] MEDS: heparin 5,000 unit/mL INJ 1 mL 5000 UNIT SUBCUT ×2 (09:06→21:30)
[2021-03-23] MEDS: guaiFENesin 600 mg Tablet 1200 MG PO ×2 (09:06→16:47)
[2021-03-23] MEDS: hyDRALAzine 25 mg Tablet PO ×2 (09:07→16:47)
[2021-03-23] MEDS: doxycycline 100 MG in sodium chloride 0.9% (plus) 100 ML IV ×2 (09:16→21:30)
[2021-03-23] MEDS: budesonide 0.5 mg/2 mL Neb INHALATION ×2 (09:18→20:57)
[2021-03-23 12:15] LABS: Basophils % 0.1 %; Eosinophils % 0.2 %; Hematocrit 28.4 % (37.0-47.0); Hemoglobin 8.9 g/dL (11.5-15.3); Lymphocytes # 0.4 10^3/uL (0.8-4.8); Mean Corpuscular HGB Conc 31.3 g/dL (30.0-36.0); Mean Corpuscular Hemoglobin 29.5 pg (28.0-34.0); Mean Platelet Volume 9.6 fL (7.4-10.4); Monocytes # 1.1 10^3/uL (0.2-0.9); Monocytes % 5.8 %; Neutrophils # 16.61 10^3/uL (1.8-7.7); Neutrophils % 89.3 %; Nucleated Red Blood Cells % 0 %; Platelet Count 162 10^3/cmm (130-400); Red Blood Count 3.02 10^6/uL (4.1-5.3); Red Cell Distribution Width 13.7 % (12.1-15.1); White Blood Count 18.6 10^3/uL (4.0-10.0)
[2021-03-23 12:32] LABS: Anion Gap 13.5 (5-19); Blood Urea Nitrogen 29 mg/dL (8-23); Carbon Dioxide 27 mmol/L (22-29); Chloride 109 mmol/L (98-107); Glomerular Filtration Rate 44.4 mL/min (90-130); Glucose 98 mg/dL (65-115); Osmolality Calculated 308 mOsm/kg (285-295); Potassium 3.5 mmol/L (3.5-5.1); Sodium 146 mmol/L (136-145)
--- NOTE | 2021-03-23 12:45 | PM.PN ---
Subjective Subjective: Interval history: Patient was seen and examined this morning, she was more alert and awake today, slight hypernatremia, kidney function has continued to improve. Participate with physical therapy today, no hemoptysis, H&H has remained stable. Medications: Reviewed: Yes Medication Review Details: Current Medications Acetaminophen (Acetaminophen 325 Mg Tablet) 650 mg PO Q6H PRN PRN Reason: Mild/Mod Pain Or Temp >/= 101 Last Admin: 03/16/21 00:33 Dose: 650 mg Documented by: Acetylcysteine (Acetylcysteine 200 Mg/Ml Sdv 4 Ml) 100 mg INHALATION Q6H [facility] Last Admin: 03/20/21 03:08 Dose: 100 mg Documented by: Albuterol/Ipratropium (Ipratropium-Albuterol 3 Ml Neb) 3 ml INHALATION Q6H.RESPIRATORY [facility] Last Admin: 03/20/21 09:13 Dose: 3 ml Documented by: Aspirin (Aspirin 81 Mg Ec Tablet) 81 mg PO DAILY [facility] Last Admin: 03/20/21 09:05 Dose: 81 mg Documented by: Atorvastatin Calcium (Atorvastatin 40 Mg Tablet) 40 mg PO BEDTIME [facility] Last Admin: 03/19/21 21:41 Dose: 40 mg Documented by: Budesonide (Budesonide 0.5 Mg/2 Ml Neb) 0.5 mg INHALATION BID.RESPIRATORY [facility] Last Admin: 03/20/21 09:13 Dose: 0.5 mg Documented by: Carvedilol (Carvedilol 25 Mg Tablet) 25 mg PO BID@0900,2100 [facility] Last Admin: 03/20/21 09:05 Dose: 25 mg Documented by: Enoxaparin Sodium (Enoxaparin 100 Mg/Ml Syringe) 90 mg 1 mg/kg (90 mg) SUBCUT Q24H [facility] Last Admin: 03/19/21 12:31 Dose: 90 mg Documented by: Gabapentin (Gabapentin 300 Mg Capsule) 300 mg PO TID [facility] Last Admin: 03/20/21 09:05 Dose: 300 mg Documented by: Guaifenesin (Guaifenesin 600 Mg Tablet) 600 mg PO BID [facility] Last Admin: 03/20/21 09:04 Dose: 600 mg Documented by: Doxycycline Hyclate 100 mg/ (Sodium Chloride) 100 mls @ 100 mls/hr IV Q12H [facility]; Protocol Last Admin: 03/20/21 09:13 Dose: 100 mls/hr Documented by: Imipenem/Cilastatin Sodium 250 (mg/ Sodium Chloride) 100 mls @ 200 mls/hr IV Q12H [facility]; Protocol Last Infusion: 03/20/21 00:31 Dose: Infused Documented by: Vancomycin HCl 1,000 mg/ (Sodium Chloride) 250 mls @ 250 mls/hr IV Q24H [facility] Lanolin (Lanolin Oint 7 Gm) 1 applic TOPICAL PRN PRN PRN Reason: DRYNESS Last Admin: 03/18/21 15:31 Dose: 1 applic Documented by: Lorazepam (Lorazepam 2 Mg/Ml Inj 1 Ml) 0.5 mg IVP Q8H PRN PRN Reason: ANXIETY Last Admin: 03/17/21 09:32 Dose: 0.5 mg Documented by: Methylprednisolone Sodium Succinate (Methylprednisolone Sod Succ 40 Mg/Ml Inj) 40 mg IVP Q12H [facility] Last Admin: 03/20/21 02:45 Dose: 40 mg Documented by: Non-Formulary Medication (Cholecalciferol (Vitamin D3)) 25 mcg PO DAILY [facility] Non-Formulary Medication (Niacin) 1,000 mg PO DAILY [facility] Ondansetron HCl (Ondansetron 2 Mg/Ml Sdv 2 Ml) 4 mg IVP Q8H PRN PRN Reason: vomiting, or N/V if npo Pantoprazole Sodium (Pantoprazole 40 Mg Sdv) 40 mg IVP Q12H [facility] Last Admin: 03/20/21 06:13 Dose: 40 mg Documented by: Sodium Chloride (Saline Nasal [place] 44ml Btl) 1 spray NASAL PRN PRN PRN Reason: DRYNESS Last Admin: 03/19/21 12:39 Dose: 1 spray Documented by: Sucralfate (Sucralfate 1 Gm Tablet) 1 gm PO AC&BEDTIME [facility] Last Admin: 03/20/21 06:13 Dose: 1 gm Documented by: Zolpidem Tartrate (Zolpidem 5 Mg Tablet) 10 mg PO BEDTIME [facility] Last Admin: 03/19/21 21:41 Dose: 10 mg Documented by: Vitals/I&O/Wt Last Vital Signs Temp 98.0 F 03/23/21 11:55 Pulse 69 03/23/21 11:55 Resp 18 03/23/21 11:55 BP 169/80 03/23/21 11:55 Pulse Ox 92 03/23/21 11:55 03/22/21 03/23/21 03/23/21 22:59 06:59 14:59 Intake Total 800 / 1140 700 / 1840 120 / 120 Balance 800 / 1140 700 / 1840 120 / 120 Physical Exam Narrative: EXAM NARRATIVE: Alert and awake HENMT: COMMON NORMALS: normocephalic and atraumatic HEAD & SCALP: normocephalic and atraumatic Chest: CHEST: Yes Symmetrical chest wall rise Resp: OTHER: Bilateral coarse breath sounds Cardio: COMMON NORMALS: regular rate, regular rhythm, S1 normal heart sound present, S2 normal heart sound present, No gallops present (Cardio), No murmurs present (Cardio), No rub (Cardio) and Peripheral pulses 2+ throughout RATE: regular rate RHYTHM: regular rhythm HEART SOUNDS: S1 normal heart sound present and S2 normal heart sound present PERIPHERAL PULSES: Peripheral pulses 2+ throughout GI: COMMON NORMALS: Normal to inspection, nondistended, normoactive bowel sounds present, Soft to palpation, non-tender, No hepatosplenomegaly present and no masses AUSCULTATION: Yes normoactive bowel sounds PALPATION: Yes Soft to palpation and Yes No hepatosplenomegaly present RECTAL EXAM: deferred Extremity: COMMON NORMALS: no clubbing, cyanosis or edema and no pedal edema Urinary Catheter Management^: Bermudez: Cath Placed During This Visit: yes Reason for Continuing Indwelling Catheter: Acute Urinary Retention or Obstruction Urinary Catheter Date of Insertion: 03/16/21 Urinary Catheter Time of Insertion: 13:59 Data : 03/23/21 11:49 03/23/21 07:19 A&P Assessment and plan (1) Sepsis: Status: Acute Qualifiers: Acute renal failure type: unspecified Sepsis acute organ dysfunction status: with acute organ dysfunction Sepsis type: sepsis due to unspecified organism Severe sepsis acute organ dysfunction type: acute renal failure Severe sepsis shock status: without septic shock Qualified Code(s): A41.9 - Sepsis, unspecified organism; R65.20 - Severe sepsis without septic shock; N17.9 - Acute kidney failure, unspecified (2) Community acquired pneumonia: Status: Acute Qualifiers: Laterality: right Lung location: lower lobe of lung Qualified Code(s): J18.9 - Pneumonia, unspecified organism (3) Elevated troponin: Status: Acute (4) Hypertension: Status: Acute Qualifiers: Hypertension type: unspecified Qualified Code(s): I10 - Essential (primary) hypertension (5) A-fib: Status: Acute Qualifiers: Atrial fibrillation type: unspecified Qualified Code(s): I48.91 - Unspecified atrial fibrillation (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 Pending QuantiFERON gold for tuberculosis work-up. Status: Acute (15) Hypernatremia: Status: Acute Additional A&P Information Patient with a notable past medical history of hypertension, May Thurner syndrome, atrial fibrillation not currently on any anticoagulation presenting with worsening dyspnea increasing cough expectoration and hemoptysis at least over the last 3 weeks, without improvement on outpatient course of Augmentin on levofloxacin. Admit to ICU in view of sepsis and multiorgan failure Acute CVA: -Currently denies any focal neurologic deficits, no blurry vision, symptoms of blurry vision started over 48 hours ago, out of TPA window, NIH stroke scale 0 -MRI of the brain shows: There are innumerable bilateral foci of abnormal signal on the diffusion-weighted scans in the temporoparietal occipital lobes, the cerebellum and thalami consistent with numerous small nonhemorrhagic acute infarcts. These are most likely embolic in nature. -2D echo: Normal LV size and systolic function, EF 58%,NO RWMA, normal RV size and systolic function, moderate pulmonary hypertension. -Has a history of atrial fibrillation not on anticoagulation, had an ablation procedure in 2007 -Does have evidence of sepsis secondary to pneumonia -Did consult neurologist to [facility], agreed with aspirin, statin, heparin for anticoagulation - -Likely embolic strokes for underlying atrial fibrillation, possible sepsis related Plan: -Strokes look over 48 hours old -Blood pressure control -Neurochecks -NIH stroke scale #Respiratory failure with hypoxia -Currently on 4 L -Continue nebulizer treatments -Secondary to pneumonia -Possible underlying pulmonary emboli, cannot undergo CT angiogram due to creatinine, ventilation/perfusion scan cannot be performed as She is r/o T/B -Fluid overload secondary to pulmonary edema, elevated BNP, CHF, pulmonary hypertension has resolved -She has been on vancomycin ,Primaxin and doxycycline. Vancomycin was discontinued on 03/22 as MRSA is negative. -Lasix as needed -Initially on heparin drip then switched to lovenox and now therapeutic Ac has been stopped as the patient is having hemoptysis, and my clinical suspicion for P/E is low. #Scant hemoptysis: Likely secondary to chronic coughing, and due to recent possible anticoagulation use. TB QuantiFERON gold pending. ANCA negative Currently it has minimized with occasional scant hemoptysis. H&H is a stable. We will continue to monitor. #Pulmonary hypertension, pulmonary arterial pressure 50 mmHg #Sepsis: Meets criteria with elevated white blood cell count, tachycardia tachypnea. Also additionally with signs of endorgan failure including hypoxic respiratory failure, acute kidney injury. Subjective fever and chills also reported at home, currently afebrile since presentation into the ER. Fluid supplementation not initiated as patient is clinically euvolemic, elevated BNP 27,000 may have underlying CHF additionally. Blood culture taken prior to initiation of antibiotics Start empiric antibiotic coverage with Zosyn, vancomycin and doxycycline for atypical coverage All antibiotics to be renally dosed. Preliminarily source appears to be worsening pneumonia. Chest x-ray with right lower lobe infiltrate. supplemental 02 to keep saturation >92% Duoneb and budesonide inhalation, hold off on steroids for now COVID, MRSA PCR, sputum gram stain and cx, influenza ag negative unvaccinated for COVID and Flu # Pneumonia: Complicated by aspiration pneumonia, has significant choking. clinically worsening as above. Abx coverage as above Modified barium study: Significant episodes of aspiration or laryngeal penetration with thin liquids and to a lesser extent the thicker liquids.Mild esophageal dysmotility. Has been started on dysphagia level 1 diet. -Also with elevated D dimer, worsening dyspnea, and h/o May thruner syndrome, high suspicion for pulmonary embolism. Cannot obtain CTA chest due to DEBRA. Check LE venous duplex negative for DVT and echocardiogram for right heart strain no significant heart strain, right side heart failure . Start presumptive anticoagulation with heparind drip Currently cannot undergo a ventilation/perfusion scan as under COVID-19 precautions, once COVID-19 comes back negative will order ventilation/perfusion scan # elevated troponin : May be related to NSTEMI vs posisble PE. Echocardiogram Normal left ventricular size and systolic function, EF 58 %. No regional wall motion abnormalities. Normal right ventricular size and systolic function. Mild biatrial enlargement. Thickened aortic and mitral valves Moderate tricuspid valve regurgitation. Moderate pulmonary hypertension with a peak pulmonary artery systolic pressure of 58 and a mean pressure of 30 mmHg. Trace pulmonary valve regurgitation. Mild mitral valve regurgitation. There is no pericardial effusion. There are no intracardiac masses. Heparin a/c presumptively Continue ASA 81mg po daily Continue atorvastatin # DEBRA : Cr up to 3.4, up from 1.3 on 03/11. No past h/o CKD per patient renal US: Normal kidneys. 2.6 cm in the determinate mass in the right adrenal gland. Renally dose all abx Hold NSAIDs, HCTZ and losartan Continue carvedilol Consult nephrology # A fib, status post ablation, currently rate controlled. Continue Coreg. Patient not on a/c as outpatient. # Transaminitis : likely from sepsis. Abdominal imaging if continues to worsen. Normal T.bili, mild elevation ALP to 117. #Hypernatremia : Hypovolemic Hypernatremia: Currently on D5 water with 30 cc an hour an hour Anemia, baseline hemoglobin unknown, continue Protonix 40 IV twice daily History of adrenal mass, known, continue to monitor, CT scan abdomen pelvis 1. There is a 3.0 cm isodense right adrenal mass. This is not fully evaluated due the lack of IV contrast. Dedicated CT scan of the adrenal glands with and without contrast or chemical shift MRI is advised. (Reference: [facility]) 2. Atherosclerotic calcified aorta with calcification and stenosis at the origins of the mesenteric and renal arteries. 3. Mild diverticulosis. 4. No acute abnormalities are seen in the abdomen and pelvis. Disposition: Currently awaiting usp placement. Attestations Medical Necessity Statement*: Patient is to be in hospital for management above defined problems. 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 Detailed Diagnoses Sepsis A41.9; R65.20; N17.9 Acute renal failure type: unspecified Sepsis acute organ dysfunction status: with acute organ dysfunction Sepsis type: sepsis due to unspecified organism Severe sepsis acute organ dysfunction type: acute renal failure Severe sepsis shock status: without septic shock Community acquired pneumonia J18.9 Laterality: right Lung location: lower lobe of lung Elevated troponin R77.8 Hypertension I10 Hypertension type: unspecified A-fib I48.91 Atrial fibrillation type: unspecified May-Thurner syndrome I87.1 Respiratory failure with hypoxia J96.01 Chronicity: acute Acute kidney injury N17.9 Acute CVA (cerebrovascular accident) I63.9 Adrenal mass E27.8 NSTEMI (non-ST elevated myocardial infarction) I21.4 Hyponatremia E87.1 Anemia D64.9 Hemoptysis R04.2 Hypernatremia E87.0
[2021-03-23] MEDS: acetaminophen 325 mg Tablet 650 MG PO (21:29)
[2021-03-23] MEDS: dextrose 5% 1,000 ML 30 ML IV (21:29)
[2021-03-23] MEDS: atorvastatin 40 mg Tablet PO (21:29)
[2021-03-23] MEDS: ALPRAZolam 0.5 mg Tablet 0.25 MG PO (22:53)
[2021-03-24] VITALS (16 sets, daily range): BP systolic 117–175; BP diastolic 65–86; PULSE 68–91; RESP 16–20; TEMP 36.5–36.9; O2SAT 90–100
[2021-03-24] MEDS: ipratropium-albuterol 3 mL Neb INHALATION ×4 (02:37→20:29)
[2021-03-24] MEDS: pantoprazole 40 mg SDV IVP ×2 (05:31→17:43)
[2021-03-24] MEDS: sucralfate 1 gm Tablet PO ×4 (06:24→20:46)
--- NOTE | 2021-03-24 08:02 | P.PN_ITS ---
Subjective Subjective: Interval history: still sob and swollen, weak Medications: Reviewed: Yes Medication Review Details: Current Medications Acetaminophen (Acetaminophen 325 Mg Tablet) 650 mg PO Q6H PRN PRN Reason: Mild/Mod Pain Or Temp >/= 101 Last Admin: 03/23/21 21:29 Dose: 650 mg Documented by: Albuterol/Ipratropium (Ipratropium-Albuterol 3 Ml Neb) 3 ml INHALATION Q6H.RESPIRATORY [facility] Last Admin: 03/24/21 02:37 Dose: 3 ml Documented by: Aspirin (Aspirin 81 Mg Ec Tablet) 81 mg PO DAILY [facility] Last Admin: 03/23/21 09:04 Dose: 81 mg Documented by: Atorvastatin Calcium (Atorvastatin 40 Mg Tablet) 40 mg PO BEDTIME [facility] Last Admin: 03/23/21 21:29 Dose: 40 mg Documented by: Budesonide (Budesonide 0.5 Mg/2 Ml Neb) 0.5 mg INHALATION BID.RESPIRATORY [facility] Last Admin: 03/23/21 20:57 Dose: 0.5 mg Documented by: Carvedilol (Carvedilol 25 Mg Tablet) 25 mg PO BID@0900,2100 [facility] Last Admin: 03/23/21 21:29 Dose: 25 mg Documented by: Gabapentin (Gabapentin 300 Mg Capsule) 300 mg PO TID [facility] Last Admin: 03/23/21 21:29 Dose: 300 mg Documented by: Guaifenesin (Guaifenesin 600 Mg Tablet) 1,200 mg PO BID [facility] Last Admin: 03/23/21 16:47 Dose: 1,200 mg Documented by: Heparin Sodium (Porcine) (Heparin 5,000 Unit/Ml Inj 1 Ml) 5,000 unit SUBCUT Q12H [facility] Last Admin: 03/23/21 21:30 Dose: 5,000 unit Documented by: Hydralazine HCl (Hydralazine 25 Mg Tablet) 25 mg PO BID [facility] Last Admin: 03/23/21 16:47 Dose: 25 mg Documented by: Doxycycline Hyclate 100 mg/ (Sodium Chloride) 100 mls @ 100 mls/hr IV Q12H [facility]; Protocol Last Infusion: 03/23/21 22:36 Dose: Infused Documented by: Imipenem/Cilastatin Sodium 500 (mg/ Sodium Chloride) 100 mls @ 200 mls/hr IV Q8H [facility] Last Infusion: 03/24/21 02:34 Dose: Infused Documented by: Dextrose (D5w) 1,000 mls @ 30 mls/hr IV .Q24H [facility] Last Admin: 03/23/21 21:29 Dose: 30 mls/hr Documented by: Lanolin (Lanolin Oint 7 Gm) 1 applic TOPICAL PRN PRN PRN Reason: DRYNESS Last Admin: 03/18/21 15:31 Dose: 1 applic Documented by: Methylprednisolone Sodium Succinate (Methylprednisolone Sod Succ 40 Mg/Ml Inj) 40 mg IVP Q24H [facility] Last Admin: 03/23/21 16:47 Dose: 40 mg Documented by: Non-Formulary Medication (Cholecalciferol (Vitamin D3)) 25 mcg PO DAILY [facility] Non-Formulary Medication (Niacin) 1,000 mg PO DAILY [facility] Ondansetron HCl (Ondansetron 2 Mg/Ml Sdv 2 Ml) 4 mg IVP Q8H PRN PRN Reason: vomiting, or N/V if npo Pantoprazole Sodium (Pantoprazole 40 Mg Sdv) 40 mg IVP Q12H [facility] Last Admin: 03/24/21 05:31 Dose: 40 mg Documented by: Sodium Chloride (Saline Nasal [place] 44ml Btl) 1 spray NASAL PRN PRN PRN Reason: DRYNESS Last Admin: 03/19/21 12:39 Dose: 1 spray Documented by: Sucralfate (Sucralfate 1 Gm Tablet) 1 gm PO AC&BEDTIME [facility] Last Admin: 03/24/21 06:24 Dose: 1 gm Documented by: Vitals/I&O/Wt Last Vital Signs Temp 98.4 F 03/24/21 04:00 Pulse 69 03/24/21 06:00 Resp 20 H 03/24/21 04:00 BP 159/80 03/24/21 04:00 Pulse Ox 90 03/24/21 04:00 03/23/21 03/24/21 03/24/21 22:59 06:59 14:59 Intake Total 660 / 1020 100 / 1120 Output Total 1700 / 1700 800 / 2500 Balance -1040 / -680 -700 / -1380 Physical Exam Narrative: EXAM NARRATIVE: elderly female on nc 02 vs noted heent- nc/at, eomi, anicteric neck supple lungs- b/l wheezes heart reg abd soft, nt, +BS ext 2+ leg edema neuro- a,a, o x 3 Urinary Catheter Management^: Bermudez: Cath Placed During This Visit: yes Reason for Continuing Indwelling Catheter: Other Urinary Catheter Date of Insertion: 03/16/21 Urinary Catheter Time of Insertion: 13:59 Data : 03/23/21 11:49 03/23/21 07:19 A&P Additional A&P Information 1. Acute renal failure Creatinine now significantly improved. Strict I's and O's Dose medication for CKD stage 3- and adjust as cr continues to improve -F/U SEROLOGIES- OFF OF STEROIDS has a + ALISSA 1:80 -likely from infection 2. electrolytes- hypernatremia- encourage water -monitor uop and chemistries - replace k 3. PNA- renal dose abx -completed vancomycin 4. resp failure- sob per medicine. EF 58% -if needs diuretics, use metolazone 5. CVA and a fib- per medicine Hypertension Blood pressure is improving. 7. h/o adrenal mass 8. anemia- ferritin 1514- not EMMY Exam and interview performed with aid of bedside RN using telemedicine Time spent >25 min inc > 50% of time in face to face counseling Attestations Medical Necessity Statement*: per medicine Time Spent in Patient Care: 16 - 35 minutes (>than 50% of time spent in counselling and/or direct pt care on unit) . 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
[2021-03-24] MEDS: heparin 5,000 unit/mL INJ 1 mL 5000 UNIT SUBCUT ×2 (08:35→20:45)
[2021-03-24] MEDS: carvedilol 25 mg Tablet PO ×2 (08:36→20:45)
[2021-03-24] MEDS: guaiFENesin 600 mg Tablet 1200 MG PO ×2 (08:36→17:43)
[2021-03-24] MEDS: hyDRALAzine 25 mg Tablet PO ×3 (08:36→20:46)
[2021-03-24] MEDS: gabapentin 300 mg Capsule PO ×3 (08:36→20:45)
[2021-03-24] MEDS: aspirin 81 mg EC Tablet PO (08:36)
[2021-03-24] MEDS: budesonide 0.5 mg/2 mL Neb INHALATION ×2 (10:18→20:29)
--- NOTE | 2021-03-24 13:39 | P.PN_ITS ---
Subjective Subjective: Interval history: Patient was seen and examined this morning, overall she has done well, kidney function has continued to improve, complaining of scant hemoptysis, supplemental oxygen requirement has slowly gone down. No other acute events. Medications: Reviewed: Yes Medication Review Details: Current Medications Acetaminophen (Acetaminophen 325 Mg Tablet) 650 mg PO Q6H PRN PRN Reason: Mild/Mod Pain Or Temp >/= 101 Last Admin: 03/16/21 00:33 Dose: 650 mg Documented by: Acetylcysteine (Acetylcysteine 200 Mg/Ml Sdv 4 Ml) 100 mg INHALATION Q6H MARIAM Last Admin: 03/20/21 03:08 Dose: 100 mg Documented by: Albuterol/Ipratropium (Ipratropium-Albuterol 3 Ml Neb) 3 ml INHALATION Q6H.RESPIRATORY MARIAM Last Admin: 03/20/21 09:13 Dose: 3 ml Documented by: Aspirin (Aspirin 81 Mg Ec Tablet) 81 mg PO DAILY MARIAM Last Admin: 03/20/21 09:05 Dose: 81 mg Documented by: Atorvastatin Calcium (Atorvastatin 40 Mg Tablet) 40 mg PO BEDTIME MARIAM Last Admin: 03/19/21 21:41 Dose: 40 mg Documented by: Budesonide (Budesonide 0.5 Mg/2 Ml Neb) 0.5 mg INHALATION BID.RESPIRATORY MARIAM Last Admin: 03/20/21 09:13 Dose: 0.5 mg Documented by: Carvedilol (Carvedilol 25 Mg Tablet) 25 mg PO BID@0900,2100 MARIAM Last Admin: 03/20/21 09:05 Dose: 25 mg Documented by: Enoxaparin Sodium (Enoxaparin 100 Mg/Ml Syringe) 90 mg 1 mg/kg (90 mg) SUBCUT Q24H MARIAM Last Admin: 03/19/21 12:31 Dose: 90 mg Documented by: Gabapentin (Gabapentin 300 Mg Capsule) 300 mg PO TID MARIAM Last Admin: 03/20/21 09:05 Dose: 300 mg Documented by: Guaifenesin (Guaifenesin 600 Mg Tablet) 600 mg PO BID MARIAM Last Admin: 03/20/21 09:04 Dose: 600 mg Documented by: Doxycycline Hyclate 100 mg/ (Sodium Chloride) 100 mls @ 100 mls/hr IV Q12H MARIAM; Protocol Last Admin: 03/20/21 09:13 Dose: 100 mls/hr Documented by: Imipenem/Cilastatin Sodium 250 (mg/ Sodium Chloride) 100 mls @ 200 mls/hr IV Q12H MARIAM; Protocol Last Infusion: 03/20/21 00:31 Dose: Infused Documented by: Vancomycin HCl 1,000 mg/ (Sodium Chloride) 250 mls @ 250 mls/hr IV Q24H MARIAM Lanolin (Lanolin Oint 7 Gm) 1 applic TOPICAL PRN PRN PRN Reason: DRYNESS Last Admin: 03/18/21 15:31 Dose: 1 applic Documented by: Lorazepam (Lorazepam 2 Mg/Ml Inj 1 Ml) 0.5 mg IVP Q8H PRN PRN Reason: ANXIETY Last Admin: 03/17/21 09:32 Dose: 0.5 mg Documented by: Methylprednisolone Sodium Succinate (Methylprednisolone Sod Succ 40 Mg/Ml Inj) 40 mg IVP Q12H MARIAM Last Admin: 03/20/21 02:45 Dose: 40 mg Documented by: Non-Formulary Medication (Cholecalciferol (Vitamin D3)) 25 mcg PO DAILY MARIAM Non-Formulary Medication (Niacin) 1,000 mg PO DAILY MARIAM Ondansetron HCl (Ondansetron 2 Mg/Ml Sdv 2 Ml) 4 mg IVP Q8H PRN PRN Reason: vomiting, or N/V if npo Pantoprazole Sodium (Pantoprazole 40 Mg Sdv) 40 mg IVP Q12H MARIAM Last Admin: 03/20/21 06:13 Dose: 40 mg Documented by: Sodium Chloride (Saline Nasal [place] 44ml Btl) 1 spray NASAL PRN PRN PRN Reason: DRYNESS Last Admin: 03/19/21 12:39 Dose: 1 spray Documented by: Sucralfate (Sucralfate 1 Gm Tablet) 1 gm PO AC&BEDTIME MARIAM Last Admin: 03/20/21 06:13 Dose: 1 gm Documented by: Zolpidem Tartrate (Zolpidem 5 Mg Tablet) 10 mg PO BEDTIME MARIAM Last Admin: 03/19/21 21:41 Dose: 10 mg Documented by: Vitals/I&O/Wt Last Vital Signs Temp 97.7 F 03/24/21 11:08 Pulse 77 03/24/21 11:08 Resp 18 03/24/21 11:08 BP 124/86 03/24/21 11:08 Pulse Ox 96 03/24/21 11:08 03/23/21 03/24/21 03/24/21 22:59 06:59 14:59 Intake Total 660 / 1020 100 / 1120 243.333 / 243.333 Output Total 1700 / 1700 800 / 2500 150 / 150 Balance -1040 / -680 -700 / -1380 93.333 / 93.333 Physical Exam Narrative: EXAM NARRATIVE: Alert and awake HENMT: COMMON NORMALS: normocephalic and atraumatic HEAD & SCALP: normocephalic and atraumatic Chest: CHEST: Yes Symmetrical chest wall rise Resp: OTHER: Bilateral coarse breath sounds Cardio: COMMON NORMALS: regular rate, regular rhythm, S1 normal heart sound present, S2 normal heart sound present, No gallops present (Cardio), No murmurs present (Cardio), No rub (Cardio) and Peripheral pulses 2+ throughout RATE: regular rate RHYTHM: regular rhythm HEART SOUNDS: S1 normal heart sound present and S2 normal heart sound present PERIPHERAL PULSES: Peripheral puls es 2+ throughout GI: COMMON NORMALS: Normal to inspection, nondistended, normoactive bowel sounds present, Soft to palpation, non-tender, No hepatosplenomegaly present and no masses AUSCULTATION: Yes normoactive bowel sounds PALPATION: Yes Soft to palpation and Yes No hepatosplenomegaly present RECTAL EXAM: deferred Extremity: COMMON NORMALS: no clubbing, cyanosis or edema and no pedal edema Urinary Catheter Management^: Bermudez: Cath Placed During This Visit: yes Reason for Continuing Indwelling Catheter: Other Urinary Catheter Date of Insertion: 03/16/21 Urinary Catheter Time of Insertion: 13:59 Data : 03/23/21 11:49 03/23/21 07:19 A&P Assessment and plan (1) Sepsis: Status: Acute Qualifiers: Acute renal failure type: unspecified Sepsis acute organ dysfunction status: with acute organ dysfunction Sepsis type: sepsis due to unspecified organism Severe sepsis acute organ dysfunction type: acute renal failure Sev ere sepsis shock status: without septic shock Qualified Code(s): A41.9 - Sepsis, unspecified organism; R65.20 - Severe sepsis without septic shock; N17.9 - Acute kidney failure, unspecified (2) Community acquired pneumonia: Status: Acute Qualifiers: Laterality: right Lung location: lower lobe of lung Qualified Code(s): J18.9 - Pneumonia, unspecified organism (3) Elevated troponin: Status: Acute (4) Hypertension: Status: Acute Qualifiers: Hypertension type: unspecified Qualified Code(s): I10 - Essential (primary) hypertension (5) A-fib: Status: Acute Qualifiers: Atrial fibrillation type: unspecified Qualified Code(s): I48.91 - Unspecified atrial fibrillation (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 Pending QuantiFERON gold for tuberculosis work-up. Status: Acute (15) Hypernatremia: Status: Acute Additional A&P Information Patient with a notable past medical history of hypertension, May Thurner syndrome, atrial fibrillation not currently on any anticoagulation presenting with worsening dyspnea increasing cough expectoration and hemoptysis at least over the last 3 weeks, without improvement on outpatient course of Augmentin on levofloxacin. Admit to ICU in view of sepsis and multiorgan failure Acute CVA: -No focal neurologic deficits, no blurry vision, symptoms of blurry vision started over 48 hours ago, out of TPA window, NIH stroke scale 0 -MRI of the brain shows: There are innumerable bilateral foci of abnormal signal on the diffusion-weighted scans in the temporoparietal occipital lobes, the cerebellum and thalami consistent with numerous small nonhemorrhagic acute infarcts. These are most likely embolic in nature. -2D echo: Normal LV size and systolic function, EF 58%,NO RWMA, normal RV size and systolic function, moderate pulmonary hypertension. -Has a history of atrial fibrillation not on anticoagulation, had an ablation procedure in 2007 -Does have evidence of sepsis secondary to pneumonia -Did consult neurologist to [facility], agreed with aspirin, statin, heparin for anticoagulation - -Likely embolic strokes for underlying atrial fibrillation, possible sepsis related Plan: -Strokes look over 48 hours old -Blood pressure control -Neurochecks -NIH stroke scale #Respiratory failure with hypoxia -Currently on 4 L -Continue nebulizer treatments -Secondary to pneumonia -Possible underlying pulmonary emboli, cannot undergo CT angiogram due to creatinine, ventilation/perfusion scan cannot be performed as She is r/o T/B -Fluid overload secondary to pulmonary edema, elevated BNP, CHF, pulmonary hypertension has resolved -She has been on vancomycin ,Primaxin and doxycycline. Vancomycin was discontinued on 03/22 as MRSA is negative. -Lasix as needed -Initially on heparin drip then switched to lovenox and now therapeutic Ac has been stopped as the patient is having hemoptysis, and my clinical suspicion for P/E is low. #Scant hemoptysis: Likely secondary to chronic coughing, and due to recent possible anticoagulation use. TB QuantiFERON gold pending. ANCA negative Currently it has minimized with occasional scant hemoptysis. H&H is a stable. We will continue to monitor. #Pulmonary hypertension, pulmonary arterial pressure 50 mmHg #Sepsis: Likely secondary to pneumonia Meets criteria with elevated white blood cell count, tachycardia tachypnea. signs of endorgan failure including hypoxic respiratory failure, acute kidney injury. Subjective fever and chills also reported at home, currently afebrile since presentation into the ER. Fluid supplementation not initiated as patient is clinically euvolemic, elevated BNP 27,000 may have underlying CHF additionally. Blood culture: Negative till date COVID, MRSA PCR, sputum gram stain and cx, influenza ag negative Chest x-ray with right lower lobe infiltrate. unvaccinated for COVID and Flu Completed antibiotic course ( Zosyn, vancomycin , Primaxin, doxycycline ) supplemental 02 to keep saturation >92% Duoneb and budesonide inhalation Solu-Medrol 40 mg IV daily # Pneumonia: Complicated by aspiration pneumonia, has significant choking. clinically worsening as above. Abx coverage as above Modified barium study: Significant episodes of aspiration or laryngeal penetration with thin liquids and to a lesser extent the thicker liquids.Mild esophageal dysmotility. Has been started on dysphagia level 1 diet. -Also with elevated D dimer, worsening dyspnea, and h/o May thruner syndrome, high suspicion for pulmonary embolism. Cannot obtain CTA chest due to DEBRA. Check LE venous duplex negative for DVT and echocardiogram for right heart strain no significant heart strain, right side heart failure . Start presumptive anticoagulation with heparind drip Currently cannot undergo a ventilation/perfusion scan as under COVID-19 precauti ons, once COVID-19 comes back negative will order ventilation/perfusion scan # elevated troponin : May be related to NSTEMI vs posisble PE. Echocardiogram Normal left ventricular size and systolic function, EF 58 %. No regional wall motion abnormalities. Normal right ventricular size and systolic function. Mild biatrial enlargement. Thickened aortic and mitral valves Moderate tricuspid valve regurgitation. Moderate pulmonary hypertension with a peak pulmonary artery systolic pressure of 58 and a mean pressure of 30 mmHg. Trace pulmonary valve regurgitation. Mild mitral valve regurgitation. There is no pericardial effusion. There are no intracardiac masses. Heparin a/c presumptively Continue ASA 81mg po daily Continue atorvastatin # DEBRA : Cr up to 3.4, up from 1.3 on 03/11. No past h/o CKD per patient renal US: Normal kidneys. 2.6 cm in the determinate mass in the right adrenal gland. Renally dose all abx Hold NSAIDs, HCTZ and losartan Continue carvedilol Consult nephrology # A fib, status post ablation, currently rate controlled. Continue Coreg. Patient not on a/c as outpatient. # Transaminitis : likely from sepsis. Abdominal imaging if continues to worsen. Normal T.bili, mild elevation ALP to 117. #Hypernatremia : Hypovolemic Hypernatremia: Currently on D5 water with 30 cc an hour an hour Anemia, baseline hemoglobin unknown, continue Protonix 40 IV twice daily History of adrenal mass, known, continue to monitor, CT scan abdomen pelvis 1. There is a 3.0 cm isodense right adrenal mass. This is not fully evaluated due the lack of IV contrast. Dedicated CT scan of the adrenal glands with and without contrast or chemical shift MRI is advised. (Reference: [facility]) 2. Atherosclerotic calcified aorta with calcification and stenosis at the origins of the mesenteric and renal arteries. 3. Mild diverticulosis. 4. No acute abnormalities are seen in the abdomen and pelvis. Disposition: Currently awaiting assisted placement. Attestations Medical Necessity Statement*: Patient is currently awaiting assisted placement. Currently stable for discharge. Coding Level of Care Code Acute Community Relations Rep for [facility] Fwd Exam Detailed Diagnoses Sepsis A41.9; R65.20; N17.9 Acute renal failure type: unspecified Sepsis acute organ dysfunction status: with acute organ dysfunction Sepsis type: sepsis due to unspecified organism Severe sepsis acute organ dysfunction type: acute renal failure Severe sepsis shock status: without septic shock Community acquired pneumonia J18.9 Laterality: right Lung location: lower lobe of lung Elevated troponin R77.8 Hypertension I10 Hypertension type: unspecified A-fib I48.91 Atrial fibrillation type: unspecified May-Thurner syndrome I87.1 Respiratory failure with hypoxia J96.01 Chronicity: acute Acute kidney injury N17.9 Acute CVA (cerebrovascular accident) I63.9 Adrenal mass E27.8 NSTEMI (non-ST elevated myocardial infarction) I21.4 Hyponatremia E87.1 Anemia D64.9 Hemoptysis R04.2 Hypernatremia E87.0
[2021-03-24] MEDS: atorvastatin 40 mg Tablet PO (20:45)
[2021-03-25] VITALS (14 sets, daily range): BP systolic 130–160; BP diastolic 71–85; PULSE 72–90; RESP 16–20; TEMP 36.6–36.8; O2SAT 88–97
[2021-03-25] MEDS: ipratropium-albuterol 3 mL Neb INHALATION ×4 (03:10→21:04)
[2021-03-25] MEDS: sucralfate 1 gm Tablet PO ×4 (06:17→20:49)
[2021-03-25] MEDS: pantoprazole 40 mg SDV IVP ×2 (06:17→18:30)
--- NOTE | 2021-03-25 07:20 | PM.PN ---
Subjective Subjective: Interval history: feels better. on 4- 5 l nc02. chronic sob. no n/v/f/c/best/d Medications: Reviewed: Yes Medication Review Details: Current Medications Acetaminophen (Acetaminophen 325 Mg Tablet) 650 mg PO Q6H PRN PRN Reason: Mild/Mod Pain Or Temp >/= 101 Last Admin: 03/23/21 21:29 Dose: 650 mg Documented by: Albuterol/Ipratropium (Ipratropium-Albuterol 3 Ml Neb) 3 ml INHALATION Q6H.RESPIRATORY MARIAM Last Admin: 03/25/21 03:10 Dose: 3 ml Documented by: Aspirin (Aspirin 81 Mg Ec Tablet) 81 mg PO DAILY MARIAM Last Admin: 03/24/21 08:36 Dose: 81 mg Documented by: Atorvastatin Calcium (Atorvastatin 40 Mg Tablet) 40 mg PO BEDTIME MARIAM Last Admin: 03/24/21 20:45 Dose: 40 mg Documented by: Budesonide (Budesonide 0.5 Mg/2 Ml Neb) 0.5 mg INHALATION BID.RESPIRATORY MARIAM Last Admin: 03/24/21 20:29 Dose: 0.5 mg Documented by: Carvedilol (Carvedilol 25 Mg Tablet) 25 mg PO BID@0900,2100 MARIAM Last Admin: 03/24/21 20:45 Dose: 25 mg Documented by: Gabapentin (Gabapentin 300 Mg Capsule) 300 mg PO TID MARIAM Last Admin: 03/24/21 20:45 Dose: 300 mg Documented by: Guaifenesin (Guaifenesin 600 Mg Tablet) 1,200 mg PO BID MARIAM Last Admin: 03/24/21 17:43 Dose: 1,200 mg Documented by: Heparin Sodium (Porcine) (Heparin 5,000 Unit/Ml Inj 1 Ml) 5,000 unit SUBCUT Q12H MARIAM Last Admin: 03/24/21 20:45 Dose: 5,000 unit Documented by: Hydralazine HCl (Hydralazine 25 Mg Tablet) 25 mg PO TID MARIAM Last Admin: 03/24/21 20:46 Dose: 25 mg Documented by: Dextrose (D5w) 1,000 mls @ 30 mls/hr IV .Q24H MARIAM Last Admin: 03/23/21 21:29 Dose: 30 mls/hr Documented by: Lanolin (Lanolin Oint 7 Gm) 1 applic TOPICAL PRN PRN PRN Reason: DRYNESS Last Admin: 03/18/21 15:31 Dose: 1 applic Documented by: Methylprednisolone Sodium Succinate (Methylprednisolone Sod Succ 40 Mg/Ml Inj) 40 mg IVP Q24H [facility] Last Admin: 03/24/21 15:52 Dose: 40 mg Documented by: Non-Formulary Medication (Cholecalciferol (Vitamin D3)) 25 mcg PO DAILY MARIAM Non-Formulary Medication (Niacin) 1,000 mg PO DAILY [facility] Ondansetron HCl (Ondansetron 2 Mg/Ml Sdv 2 Ml) 4 mg IVP Q8H PRN PRN Reason: vomiting, or N/V if npo Pantoprazole Sodium (Pantoprazole 40 Mg Sdv) 40 mg IVP Q12H [facility] Last Admin: 03/25/21 06:17 Dose: 40 mg Documented by: Sodium Chloride (Saline Nasal [place] 44ml Btl) 1 spray NASAL PRN PRN PRN Reason: DRYNESS Last Admin: 03/19/21 12:39 Dose: 1 spray Documented by: Sucralfate (Sucralfate 1 Gm Tablet) 1 gm PO AC&BEDTIME [facility] Last Admin: 03/25/21 06:17 Dose: 1 gm Documented by: Vitals/I&O/Wt Last Vital Signs Temp 97.9 F 03/25/21 04:00 Pulse 90 03/25/21 04:00 Resp 17 03/25/21 04:00 BP 160/83 03/25/21 04:00 Pulse Ox 97 03/25/21 04:00 03/24/21 03/25/21 03/25/21 22:59 06:59 14:59 Intake Total 600 / 843.333 30 / 873.333 Output Total 350 / 500 400 / 900 Balance 250 / 343.333 -370 / -26.667 Physical Exam Narrative: EXAM NARRATIVE: elderly female on nc 02- more comfortable vs noted heent- nc/at, eomi, anicteric neck supple lungs- b/l wheezes improving heart reg abd soft, nt, +BS ext dec asymetrical edema neuro- a,a, o x 3 Urinary Catheter Management^: Bermudez: Cath Placed During This Visit: yes Reason for Continuing Indwelling Catheter: Other Urinary Catheter Date of Insertion: 03/16/21 Urinary Catheter Time of Insertion: 13:59 Data : 03/23/21 11:49 03/23/21 07:19 A&P Additional A&P Information 1. Acute renal failure Creatinine now significantly improved. Strict I's and O's Dose medication for CKD stage 2/ 3- -F/U SEROLOGIES- OFF OF STEROIDS has a + ALISSA 1:80 -likely from infection 2. electrolytes- hypernatremia- encourage water -monitor uop and chemistries - replace k and mag as needed 3. PNA- renal dose abx -completed vancomycin -wbc is 18.6 4. resp failure- sob per medicine. EF 58% -if needs diuretics, use metolazone 5. CVA and a fib- per medicine Hypertension Blood pressure is improving. 7. h/o adrenal mass 8. anemia- ferritin 1514- not EMMY Exam and interview performed with aid of bedside RN using telemedicine Time spent >25 min inc > 50% of time in face to face counseling renal will see PRN Attestations Medical Necessity Statement*: per medicine Time Spent in Patient Care: 16 - 35 minutes (>than 50% of time spent in counselling and/or direct pt care on unit). Coding Level of Care Code Acute Black Leather Trimmer for [facility]
[2021-03-25] MEDS: budesonide 0.5 mg/2 mL Neb INHALATION ×2 (08:12→21:03)
[2021-03-25] MEDS: guaiFENesin 600 mg Tablet 1200 MG PO ×2 (08:53→18:30)
[2021-03-25] MEDS: carvedilol 25 mg Tablet PO ×2 (08:53→20:49)
[2021-03-25] MEDS: heparin 5,000 unit/mL INJ 1 mL 5000 UNIT SUBCUT ×2 (08:53→20:48)
[2021-03-25] MEDS: hyDRALAzine 25 mg Tablet PO ×3 (08:53→20:49)
[2021-03-25] MEDS: aspirin 81 mg EC Tablet PO (08:53)
[2021-03-25] MEDS: potassium chloride oral liq 20 mEq/15 mL UDC 40 MEQ PO (08:53)
[2021-03-25] MEDS: gabapentin 300 mg Capsule PO ×3 (08:53→20:49)
[2021-03-25 10:31] LABS: Alanine Aminotransferase 14 U/L (0-33); Albumin Level 3.3 g/dL (3.5-5.2); Alkaline Phosphatase 63 IU/L (35-105); Aspartate Amino Transferase 22 U/L (0-32); Blood Urea Nitrogen 28 mg/dL (8-23); Calcium 8.5 mg/dL (8.5-10.5); Carbon Dioxide 22 mmol/L (22-29); Chloride 107 mmol/L (98-107); Globulin 1.7 g/dL (1.3-4.6); Glomerular Filtration Rate 49.1 mL/min (90-130); Glucose 144 mg/dL (65-115); Magnesium 1.9 mg/dL (1.7-2.3); Osmolality Calculated 304 mOsm/kg (285-295); Sodium 143 mmol/L (136-145); Total Bilirubin 0.6 mg/dL (0.15-1.2)
[2021-03-25 11:46] LABS: Quantiferon Mitogen 0.66; Quantiferon Nil 0.01
[2021-03-25 11:47] LABS: Quantiferon Plus TB2 NEGATIVE
[2021-03-25 13:12] LABS: Albumin,Urine Random 57 %; Alpha-1-Globulins Urine Random 9 %; Alpha-2-Globulins Urine Random 17 %; Beta-Globulin,Urine Random 11 %; Gamma Globulin,Urine Random 6 %
[2021-03-25 16:54] LABS: DNA AB (DS) CRITHIDIA,IFA NEGATIVE (NEGATIVE)
--- NOTE | 2021-03-25 18:12 | PM.PN ---
Subjective Subjective: Interval history: Patient was sitting up in a chair, this morning, alert oriented x3, does not report any nausea, no vomiting, no chest pain, no palpitations, no weakness, no fevers overnight, Vitals/I&O/Wt Last Vital Signs Temp 98.3 F 03/25/21 15:51 Pulse 79 03/25/21 15:51 Resp 16 03/25/21 16:00 BP 145/74 03/25/21 15:51 Pulse Ox 91 03/25/21 15:51 03/25/21 03/25/21 03/25/21 06:59 14:59 22:59 Intake Total 30 / 873.333 120 / 120 Output Total 400 / 900 1000 / 1000 Balance -370 / -26.667 120 / 120 -1000 / -880 Physical Exam Const: COMMON NORMALS: no acute distress and patient oriented x3 Resp: COMMON NORMALS: normal respiratory effort, No retractions, No use of accessory muscles and clear to auscultation bilaterally AUSCULTATION: clear to auscultation bilaterally Cardio: COMMON NORMALS: regular rate, regular rhythm, S1 normal heart sound present and S2 normal heart sound present RATE: regular rate RHYTHM: regular rhythm HEART SOUNDS: S1 normal heart sound present and S2 normal heart sound present GI: COMMON NORMALS: Normal to inspection, nondistended, normoactive bowel sounds present, Soft to palpation and non-tender PALPATION: Yes Soft to palpation Extremity: COMMON NORMALS: no pedal edema Neuro: COMMON NORMALS: patient oriented x3 Psych: COMMON NORMALS: mental status grossly normal Urinary Catheter Management^: Bermudez: Cath Placed During This Visit: yes Reason for Continuing Indwelling Catheter: Other Urinary Catheter Date of Insertion: 03/16/21 Urinary Catheter Time of Insertion: 13:59 Data : 03/23/21 11:49 03/25/21 09:49 A&P Assessment and plan (1) Sepsis: Status: Acute Qualifiers: Sepsis type: sepsis due to unspecified organism Sepsis acute organ dysfunction status: with acute organ dysfunction Severe sepsis acute organ dysfunction type: acute renal failure Acute renal failure type: unspecified Severe sepsis shock status: without septic shock Qualified Code(s): A41.9 - Sepsis, unspecified organism; R65.20 - Severe sepsis without septic shock; N17.9 - Acute kidney failure, unspecified (2) Community acquired pneumonia: Status: Acute Qualifiers: Laterality: right Lung location: lower lobe of lung Qualified Code(s): J18.9 - Pneumonia, unspecified organism (3) Elevated troponin: Status: Acute (4) Hypertension: Status: Acute Qualifiers: Hypertension type: unspecified Qualified Code(s): I10 - Essential (primary) hypertension (5) A-fib: Status: Acute Qualifiers: Atrial fibrillation type: unspecified Qualified Code(s): I48.91 - Unspecified atrial fibrillation (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 (7) Respiratory failure with hypoxia: Status: Acute Qualifiers: Chronicity: acute Qualified Code(s): J96.01 - Acute respiratory failure with hypoxia (8) Acute kidney injury: Status: Acute (9) Acute CVA (cerebrovascular accident): Status: Acute (10) Adrenal mass: Status: Acute (11) NSTEMI (non-ST elevated myocardial infarction): Status: Acute (12) Hyponatremia: Status: Acute (13) Anemia: Status: Acute (14) Hemoptysis: Status: Acute (15) Hypernatremia: Status: Acute (16) Mediastinal lymphadenopathy: Status: Acute Additional A&P Information Patient with a notable past medical history of hypertension, May Thurner syndrome, atrial fibrillation not currently on any anticoagulation presenting with worsening dyspnea increasing cough expectoration and hemoptysis at least over the last 3 weeks, without improvement on outpatient course of Augmentin on levofloxacin. Acute CVA: -No ocal neurologic deficits, no blurry vision, symptoms of blurry vision started over 48 hours ago, out of TPA window, NIH stroke scale 0 -MRI of the brain shows: There are innumerable bilateral foci of abnormal signal on the diffusion-weighted scans in the temporoparietal occipital lobes, the cerebellum and thalami consistent with numerous small nonhemorrhagic acute infarcts. These are most likely embolic in nature. -2D echo: Normal LV size and systolic function, EF 58%,NO RWMA, normal RV size and systolic function, moderate pulmonary hypertension. -Has a history of atrial fibrillation not on anticoagulation, had an ablation procedure in 2007 -Does have evidence of sepsis secondary to pneumonia -Did consult neurologist to [facility], agreed with aspirin, statin, heparin for anticoagulation -Likely embolic strokes for underlying atrial fibrillation, possible sepsis related -Strokes look over 48 hours old prior to admission Plan -Telemetry monitoring -Blood pressure control -Neurochecks -NIH stroke scale -Currently anticoagulation is on hold due to concern for scant hemoptysis -Will resume when hemoptysis has resolved Scant hemoptysis -Reports hemoptysis this morning -likely secondary to coughing -ANCA negative -Therapeutic anticoagulation has been stopped -Hemoglobin stable at 8.9 -QuantiFERON gold negative, will resume anticoagulation in the next 24 hours #Respiratory failure with hypoxia -Currently on 4 L -Continue nebulizer treatments -Secondary to pneumonia -Possible underlying pulmonary emboli, elevated D-dimer, venous Doppler negative for DVT, will hold off on CT angiogram for now given improving creatinine, clinical suspicion is low -Fluid overload secondary to pulmonary edema, elevated BNP, CHF, pulmonary hypertension has resolved -She has been on vancomycin ,Primaxin and doxycycline. Vancomycin was discontinued on 03/22 as MRSA is negative. -Lasix as needed -Initially on heparin drip then switched to lovenox and now therapeutic Ac has been stopped as the patient is having hemoptysis #Pulmonary hypertension, pulmonary arterial pressure 50 mmHg Diffuse mediastinal lymphadenopathy -Differential includes lymphoproliferative disorder, metastatic malignancy, granulomatous disease, atypical infection -We will continue to monitor -Have patient follow-up with pulmonary service and oncology #Sepsis: Likely secondary to pneumonia Resolved Meets criteria with elevated white blood cell count, tachycardia tachypnea. signs of endorgan failure including hypoxic respiratory failure, acute kidney injury. Subjective fever and chills also reported at home, currently afebrile since presentation into the ER. Fluid supplementation not initiated as patient is clinically euvolemic, elevated BNP 27,000 may have underlying CHF additionally. Blood culture: Negative till date COVID, MRSA PCR, sputum gram stain and cx, influenza ag negative Chest x-ray with right lower lobe infiltrate. unvaccinated for COVID and Flu Completed antibiotic course ( Zosyn, vancomycin , Primaxin, doxycycline ) supplemental 02 to keep saturation >92% Duoneb and budesonide inhalation Solu-Medrol 40 mg IV daily # Pneumonia: Complicated by aspiration pneumonia, has significant choking. clinically worsening as above. Abx coverage as above Modified barium study: Significant episodes of aspiration or laryngeal penetration with thin liquids and to a lesser extent the thicker liquids.Mild esophageal dysmotility. Has been started on dysphagia level 1 diet Aspiration precautions -Also with elevated D dimer, worsening dyspnea, and h/o May thruner syndrome, high suspicion for pulmonary embolism. Cannot obtain CTA chest due to DEBRA. Check LE venous duplex negative for DVT and echocardiogram for right heart strain no significant heart strain, no right side heart failure . -Likelihood of pulmonary embolism is fairly unlikely # elevated troponin : Likely related to acute respiratory failure as above Echocardiogram Normal left ventricular size and systolic function, EF 58 %. No regional wall motion abnormalities. Normal right ventricular size and systolic function. Mild biatrial enlargement. Thickened aortic and mitral valves Moderate tricuspid valve regurgitation. Moderate pulmonary hypertension with a peak pulmonary artery systolic pressure of 58 and a mean pressure of 30 mmHg. Trace pulmonary valve regurgitation. Mild mitral valve regurgitation. There is no pericardial effusion. There are no intracardiac masses. Continue ASA 81mg po daily Continue atorvastatin # DEBRA : Creatinine 1.1 Cr up to 3.4, up from 1.3 on 03/11. No past h/o CKD per patient renal US: Normal kidneys. 2.6 cm in the determinate mass in the right adrenal gland. Renally dose all abx Hold NSAIDs, HCTZ and losartan Continue carvedilol Consult nephrology # A fib, status post ablation, currently rate controlled. Continue Coreg. Patient not on a/c as outpatient. # Transaminitis : likely from sepsis. Abdominal imaging if continues to worsen. Normal T.bili, mild elevation ALP to 117. #Hypernatremia : Hypovolemic Hypernatremia: Resolved Stop IV fluids Anemia, baseline hemoglobin unknown, continue Protonix 40 IV twice daily History of adrenal mass, known, continue to monitor, CT scan abdomen pelvis 1. There is a 3.0 cm isodense right adrenal mass. This is not fully evaluated due the lack of IV contrast. Dedicated CT scan of the adrenal glands with and without contrast or chemical shift MRI is advised. (Reference: [facility]) 2. Atherosclerotic calcified aorta with calcification and stenosis at the origins of the mesenteric and renal arteries. 3. Mild diverticulosis. 4. No acute abnormalities are seen in the abdomen and pelvis. Disposition: Currently awaiting residential placement. Attestations Medical Necessity Statement*: Patient requires hospitalization for pneumonia, DEBRA, A. fib, CVA Coding Level of Care Code Acute [place] Manager for [facility] Fw Diagnoses Sepsis A41.9; R65.20; N17.9 Sepsis type: sepsis due to unspecified organism Sepsis acute organ dysfunction status: with acute organ dysfunction Severe sepsis acute organ dysfunction type: acute renal failure Acute renal failure type: unspecified Severe sepsis shock status: without septic shock Community acquired pneumonia J18.9 Laterality: right Lung location: lower lobe of lung Elevated troponin R77.8 Hypertension I10 Hypertension type: unspecified A-fib I48.91 Atrial fibrillation type: unspecified 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
[2021-03-25] MEDS: dextrose 5% 1,000 ML 30 ML IV (18:29)
[2021-03-25 20:29] LABS: LAB Peripheral Smear Sent for Review
[2021-03-25] MEDS: atorvastatin 40 mg Tablet PO (20:49)
[2021-03-26] VITALS (14 sets, daily range): BP systolic 120–146; BP diastolic 62–76; PULSE 66–90; RESP 17–23; TEMP 36.4–36.9; O2SAT 89–94
[2021-03-26] MEDS: ipratropium-albuterol 3 mL Neb INHALATION ×4 (03:02→21:41)
[2021-03-26] MEDS: pantoprazole 40 mg SDV IVP (06:13)
[2021-03-26] MEDS: sucralfate 1 gm Tablet PO ×4 (07:08→20:45)
[2021-03-26] MEDS: carvedilol 25 mg Tablet PO ×2 (08:04→20:44)
[2021-03-26] MEDS: heparin 5,000 unit/mL INJ 1 mL 5000 UNIT SUBCUT (08:09)
[2021-03-26] MEDS: aspirin 81 mg EC Tablet PO (08:09)
[2021-03-26] MEDS: guaiFENesin 600 mg Tablet 1200 MG PO ×2 (08:09→18:34)
[2021-03-26] MEDS: hyDRALAzine 25 mg Tablet PO ×3 (08:09→20:44)
[2021-03-26] MEDS: gabapentin 300 mg Capsule PO ×3 (08:09→20:44)
[2021-03-26] MEDS: budesonide 0.5 mg/2 mL Neb INHALATION ×2 (08:30→21:41)
--- NOTE | 2021-03-26 08:53 | CT_ITS ---
WS: [id number] CTA OF THE CHEST WITH PULMONARY EMBOLISM PROTOCOL TECHNIQUE: High-resolution contrast enhanced CTA of the chest with coronal and sagittal reformatted i mcs with pulmonary embolism protocol. MIP images are also reviewed. CLINICAL INFORMATION: sob COMPARISON: CT chest March 15, 2021 DLP: 516.[address] scans at [facility] use at least one of these dose optimization techniques: automated e xposure control; mA and/or kV adjustment per patient size (includes targeted exams where dose is matc hed to clinical indication); or iterative reconstruction. FINDINGS: Bilateral diffuse patchy mainly subpleural ground glass infiltrates. Recommend correlation for viral pneumonia. This is similar in appearance to previous. Small right pleural effusion. Compressive atele ctasis right lower lobe. Pleural effusion has improved slightly compared to previous. Tiny left pleur al effusion. Again seen is bulky diffuse masslike anterior mediastinal,AP window, subcarinal and all r lymphadenopathy. Differential considerations are unchanged. This is stable in appearance compared t o previous. Bronchovascular thickening with narrowing of the right greater than left mainstem bronchu s is slightly more prominent compared to previous. Narrowing of the right greater than left hilar ves sels due to bulky lymphadenopathy. Tiny pericardial effusion or thickening. Proximal main pulmonary arteries are normal. Normal segmenta l and subsegmental pulmonary arteries. No filling defects to indicate pulmonary embolus.Stable low-at tenuation right adrenal nodule likely adenoma measuring 2.[address]/CT angio chest PE protcl [id number] IMPRESSION: 1. Stable masslike anterior mediastinal, AP and hilar, subcarinal and hilar ly mphadenopathy. Differential considerations are unchanged including metastatic l ymphadenopathy, lymphoma, and atypical infection. 2. No evidence of pulmonary embolus. 3. Bronchovascular thickening with narrowing of the right greater than left ma instem bronchus which appears slightly progressed compared to previous with bul ky lymphadenopathy. 4. Stable right adrenal nodule measuring 2.8 cm. 5. Tiny pericardial effusion or thickening.
[2021-03-26] MEDS: iodixanol 320 mg/mL 100mL Btl IV (09:22)
[2021-03-26] MEDS: predniSONE 20 mg Tablet 40 MG PO (09:53)
[2021-03-26] MEDS: pantoprazole DR 40 mg Tablet PO ×2 (09:53→18:36)
--- NOTE | 2021-03-26 12:02 | PC.SOCIAL ---
IMM Update Pg. 2 of IMM updated and reviewed with patient, who verbalized understanding. Copy provided.
--- NOTE | 2021-03-26 12:10 | P.PN_ITS ---
Subjective Subjective: Interval history: Patient was seen this morning, she is restricted return from her CT angiogram, she tells me that she did not sleep for the last few nights, she is not been receiving her Ambien, she has requested it, she still on 4 L, still complains of shortness of breath, no chest pain, no lightheadedness, dizziness Vitals/I&O/Wt Last Vital Signs Temp 97.5 F L 03/26/21 12:00 Pulse 70 03/26/21 12:00 Resp 18 03/26/21 12:00 BP 131/71 03/26/21 12:00 Pulse Ox 93 03/26/21 12:00 03/25/21 03/26/21 03/26/21 22:59 06:59 14:59 Intake Total 960 / 1080 480 / 1560 Output Total 1000 / 1000 1260 / 2260 Balance -40 / 80 -780 / -700 Physical Exam Const: COMMON NORMALS: no acute distress and patient oriented x3 GENERAL APPEARANCE: frail appearing Resp: COMMON NORMALS: normal respiratory effort, No retractions, No use of accessory muscles and clear to auscultation bilaterally AUSCULTATION: clear to auscultation bilaterally Cardio: COMMON NORMALS: regular rate, regular rhythm, S1 normal heart sound present and S2 normal heart sound present RATE: regular rate RHYTHM: regular rhythm HEART SOUNDS: S1 normal heart sound present and S2 normal heart sound present GI: COMMON NORMALS: Normal to inspection, nondistended, normoactive bowel sounds present, Soft to palpation and non-tender PALPATION: Yes Soft to palpation Extremity: COMMON NORMALS: no pedal edema Neuro: COMMON NORMALS: patient oriented x3 Psych: COMMON NORMALS: mental status grossly normal Urinary Catheter Management^: Bermudez: Cath Placed During This Visit: yes Reason for Continuing Indwelling Catheter: Other Urinary Catheter Date of Insertion: 03/16/21 Urinary Catheter Time of Insertion: 13:59 Data : 03/23/21 11:49 03/25/21 09:49 A&P Assessment and plan (1) Sepsis: Status: Acute Qualifiers: Sepsis type: sepsis due to unspecified organism Sepsis acute organ dysfunction status: with acute organ dysfunction Severe sepsis acute organ dysfunction type: acute renal failure Acute renal failure type: unspecified Severe sepsis shock status: without septic shock Qualified Code(s): A41.9 - Se psis, unspecified organism; R65.20 - Severe sepsis without septic shock; N17.9 - Acute kidney failure, unspecified (2) Community acquired pneumonia: Status: Acute Qualifiers: Laterality: right Lung location: lower lobe of lung Qualified Code(s): J18.9 - Pneumonia, unspecified organism (3) Elevated troponin: Status: Acute (4) Hypertension: Status: Acute Qualifiers: Hypertension type: unspecified Qualified Code(s): I10 - Essential (primary) hypertension (5) A-fib: Status: Acute Qualifiers: Atrial fibrillation type: unspecified Qualified Code(s): I48.91 - Unsp ecified atrial fibrillation (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 (7) Respiratory failure with hypoxia: Status: Acute Qualifiers: Chronicity: acute Qualified Code(s): J96.01 - Acute respiratory failure with hypoxia (8) Acute kidney injury: Status: Acute (9) Acute CVA (cerebrovascular accident): Status: Acute (10) Adrenal mass: Status: Acute (11) NSTEMI (non-ST elevated myocardial infarction): Status: Acute (12) Hyponatremia: Status: Acute (13) Anemia: Status: Acute (14) Hypernatremia: Status: Acute (15) Mediastinal lymphadenopathy: Status: Acute Additional A&P Information Patient with a notable past medical history of hypertension, May Thurner syndrome, atrial fibrillation not currently on any anticoagulation presenting with worsening dyspnea increasing cough expectoration and hemoptysis at least over the last 3 weeks, without improvement on outpatient course of Augmentin on levofloxacin. Acute CVA: -No ocal neurologic deficits, no blurry vision, symptoms of blurry vision started over 48 hours ago, out of TPA window, NIH stroke scale 0 -MRI of the brain shows: There are innumerable bilateral foci of abnormal signal on the diffusion-weighted scans in the temporoparietal occipital lobes, the cerebellum and thalami consistent with numerous small nonhemorrhagic acute infarcts. These are most likely embolic in nature. -2D echo: Normal LV size and systolic function, EF 58%,NO RWMA, normal RV size and systolic function, moderate pulmonary hypertension. -Has a history of atrial fibrillation not on anticoagulation, had an ablation procedure in 2007 -Does have evidence of sepsis secondary to pneumonia -Did consult neurologist to [facility], agreed with aspirin, statin, heparin for anticoagulation -Likely embolic strokes for underlying atrial fibrillation, possible sepsis related -Strokes look over 48 hours old prior to admission Plan -Telemetry monitoring -Blood pressure control -Neurochecks -NIH stroke scale -Hemoptysis has resolved, hemoglobin stable, resume Lovenox Scant hemoptysis -Reports hemoptysis this morning -likely secondary to coughing -ANCA negative -Hemoglobin stable at 8.2 -QuantiFERON gold negative, will resume anticoagulation #Respiratory failure with hypoxia -Currently on 4 L -Continue nebulizer treatments -Secondary to pneumonia -Possible underlying pulmonary emboli, elevated D-dimer, venous Doppler negative for DVT, will order CT angiogram for now given improving creatinine -Fluid overload secondary to pulmonary edema, elevated BNP, CHF, pulmonary hypertension has resolved -She has been on vancomycin ,Primaxin and doxycycline. Vancomycin was discontinued on 03/22 as MRSA is negative. -Lasix as needed #Pulmonary hypertension, pulmonary arterial pressure 50 mmHg Diffuse mediastinal lymphadenopathy -Differential includes lymphoproliferative disorder, metastatic malignancy, granulomatous disease, atypical infection -We will continue to monitor -Have patient follow-up with pulmonary service and oncology #Sepsis: Likely secondary to pneumonia Resolved Meets criteria with elevated white blood cell count, tachycardia tachypnea. si gns of endorgan failure including hypoxic respiratory failure, acute kidney injury. Subjective fever and chills also reported at home, currently afebrile since presentation into the ER. Fluid supplementation not initiated as patient is clinically euvolemic, elevated BNP 27,000 may have underlying CHF additionally. Blood culture: Negative till date COVID, MRSA PCR, sputum gram stain and cx, influenza ag negative Chest x-ray with right lower lobe infiltrate. unvaccinated for COVID and Flu Completed antibiotic course ( Zosyn, vancomycin , Primaxin, doxycycline ) supplemental 02 to keep saturation >92% Duoneb and budesonide inhalation Solu-Medrol 40 mg IV daily # Pneumonia: Complicated by aspiration pneumonia, has significant choking. clinically worsening as above. Abx coverage as above Modified barium study: Significant episodes of aspiration or laryngeal penetration with thin liquids and to a lesser extent the thicker liquids.Mild esophageal dysmotility. Has been started on dysphagia level 1 diet Aspiration precautions -Also with elevated D dimer, worsening dyspnea, and h/o May thruner syndrome, high suspicion for pulmonary embolism. Will order CT angiogram. Check LE venous duplex negative for DVT and echocardiogram for right heart strain no significant heart strain, no right side heart failure . -CT angiogram ordered # elevated troponin : Likely related to acute respiratory failure as above Echocardiogram Normal left ventricular size and systolic function, EF 58 %. No regional wall motion abnormalities. Normal right ventricular size and systolic function. Mild biatrial enlargement. Thickened aortic and mitral valves Moderate tricuspid valve regurgitation. Moderate pulmonary hypertension with a peak pulmonary artery systolic pressure of 58 and a mean pressure of 30 mmHg. Trace pulmonary valve regurgitation. Mild mitral valve regurgitation. There is no pericardial effusion. There are no intracardiac masses. Continue ASA 81mg po daily Continue atorvastatin # DEBRA : Creatinine 1.1 Cr up to 3.4, up from 1.3 on 03/11. No past h/o CKD per patient renal US: Normal kidneys. 2.6 cm in the determinate mass in the right adrenal gland. Renally dose all abx Hold NSAIDs, HCTZ and losartan Continue carvedilol Consult nephrology # A fib, status post ablation, currently rate controlled. Continue Coreg. Patient not on a/c as outpatient. # Transaminitis : likely from sepsis. Abdominal imaging if continues to worsen. Normal T.bili, mild elevation ALP to 117. #Hypernatremia : Hypovolemic Hypernatremia: Resolved Stop IV fluids Anemia, baseline hemoglobin unknown, continue Protonix 40 IV twice daily History of adrenal mass, known, continue to monitor, CT scan abdomen pelvis 1. There is a 3.0 cm isodense right adrenal mass. This is not fully evaluated due the lack of IV contrast. Dedicated CT scan of the adrenal glands with and without contrast or chemical shift MRI is advised. (Reference: [facility]) 2. Atherosclerotic calcified aorta with calcification and stenosis at the origins of the mesenteric and renal arteries. 3. Mild diverticulosis. 4. No acute abnormalities are seen in the abdomen and pelvis. Disposition: Currently awaiting correction placement. Attestations 2 Medical Necessity Statement*: Patient requires hospitalization for acute respiratory failure, diffuse chest lymphadenopathy, deconditioning, protein calorie malnutrition Coding Level of Care Code Acute [employer]ayer for [facility] Fwd Diagnoses Sepsis A41.9; R65.20; N17.9 Sepsis type: sepsis due to unspecified organism Sepsis acute organ dysfunction status: with acute organ dysfunction Severe sepsis acute organ dysfunction type: acute renal failure Acute renal failure type: unspecified Severe sepsis shock status: without septic shock Community acquired pneumonia J18.9 Laterality: right Lung location: lower lobe of lung Elevated troponin R77.8 Hypertension I10 Hypertension type: unspecified A-fib I48.91 Atrial fibrillation type: unspecified May-Thurner syndrome I87.1 Respiratory failure with hypoxia J96.01 Chronicity: acute Acute kidney injury N17.9 Acute CVA (cerebrovascular accident) I63.9 Adrenal mass E27.8 NSTEMI (non-ST elevated myocardial infarction) I21.4 Hyponatremia E87.1 Anemia D64.9 Hypernatremia E87.0 Mediastinal lymphadenopathy R59.0
[2021-03-26 12:12] LABS: Basophils % 0.1 %; Eosinophils % 0.1 %; Hematocrit 26.7 % (37.0-47.0); Hemoglobin 8.2 g/dL (11.5-15.3); Lymphocytes # 0.2 10^3/uL (0.8-4.8); Lymphocytes % 1.7 %; Mean Corpuscular HGB Conc 30.7 g/dL (30.0-36.0); Mean Corpuscular Hemoglobin 29.1 pg (28.0-34.0); Mean Corpuscular Volume 94.7 fl (81-99); Mean Platelet Volume 10.2 fL (7.4-10.4); Monocytes # 0.9 10^3/uL (0.2-0.9); Monocytes % 6.8 %; Neutrophils # 11.89 10^3/uL (1.8-7.7); Neutrophils % 90.6 %; Nucleated Red Blood Cells % 0 %; Platelet Count 167 10^3/cmm (130-400); Red Blood Count 2.82 10^6/uL (4.1-5.3); White Blood Count 13.1 10^3/uL (4.0-10.0)
[2021-03-26 12:34] LABS: D Dimer 2.08 ug/mIFEU (0-0.59)
[2021-03-26 12:45] LABS: Alanine Aminotransferase 14 U/L (0-33); Alkaline Phosphatase 61 IU/L (35-105); Anion Gap 15.7 (5-19); Aspartate Amino Transferase 16 U/L (0-32); Blood Urea Nitrogen 26 mg/dL (8-23); C Reactive Protein 41.5 mg/L (0.0-4.9); Calcium 8.4 mg/dL (8.5-10.5); Carbon Dioxide 23 mmol/L (22-29); Chloride 107 mmol/L (98-107); Glomerular Filtration Rate 49.1 mL/min (90-130); Glucose 134 mg/dL (65-115); Magnesium 1.9 mg/dL (1.7-2.3); Osmolality Calculated 301 mOsm/kg (285-295); Phosphorus 2.4 mg/dL (2.5-4.5); Potassium 3.7 mmol/L (3.5-5.1); Sodium 142 mmol/L (136-145); Total Bilirubin 0.5 mg/dL (0.15-1.2)
[2021-03-26 12:50] LABS: NT Pro B Type Natriuretic Pept 1430 pg/mL (0-125); Procalcitonin 0.17 ng/mL (0-0.5)
[2021-03-26 13:00] LABS: Lactate Dehydrogenase 375 U/L (135-214)
[2021-03-26 15:02] LABS: Ferritin 1043 ng/mL (15-150)
[2021-03-26] MEDS: enoxaparin 100 mg/mL Syringe 90 MG SUBCUT (20:43)
[2021-03-26] MEDS: atorvastatin 40 mg Tablet PO (20:43)
[2021-03-26] MEDS: zolpidem 5 mg Tablet 10 MG PO (20:45)
[2021-03-26] MEDS: acetaminophen 325 mg Tablet 650 MG PO (20:45)
[2021-03-27] VITALS (13 sets, daily range): BP systolic 121–130; BP diastolic 55–77; PULSE 70–95; RESP 16–23; TEMP 36.4–37.1; O2SAT 86–100
[2021-03-27] MEDS: ipratropium-albuterol 3 mL Neb INHALATION ×4 (03:50→22:05)
[2021-03-27] MEDS: FUROsemide 10 mg/mL SDV 2mL 20 MG IVP (05:20)
[2021-03-27 07:13] LABS: Basophils % 0.1 %; Eosinophils % 0.1 %; Hematocrit 27.6 % (37.0-47.0); Hemoglobin 8.7 g/dL (11.5-15.3); Lymphocytes # 0.3 10^3/uL (0.8-4.8); Lymphocytes % 2.6 %; Mean Corpuscular HGB Conc 31.5 g/dL (30.0-36.0); Mean Corpuscular Hemoglobin 29.8 pg (28.0-34.0); Mean Corpuscular Volume 94.5 fl (81-99); Mean Platelet Volume 10.6 fL (7.4-10.4); Monocytes # 1.2 10^3/uL (0.2-0.9); Neutrophils # 9.58 10^3/uL (1.8-7.7); Neutrophils % 85.4 %; Nucleated Red Blood Cells % 0 %; Platelet Count 163 10^3/cmm (130-400); Red Blood Count 2.92 10^6/uL (4.1-5.3); Red Cell Distribution Width 14.4 % (12.1-15.1); White Blood Count 11.2 10^3/uL (4.0-10.0)
[2021-03-27 07:19] LABS: NT Pro B Type Natriuretic Pept 1684 pg/mL (0-125); Procalcitonin 0.16 ng/mL (0-0.5)
[2021-03-27 07:30] LABS: Alanine Aminotransferase 17 U/L (0-33); Albumin Level 2.9 g/dL (3.5-5.2); Alkaline Phosphatase 67 IU/L (35-105); Blood Urea Nitrogen 24 mg/dL (8-23); C Reactive Protein 33.8 mg/L (0.0-4.9); Calcium 8.8 mg/dL (8.5-10.5); Carbon Dioxide 26 mmol/L (22-29); Chloride 110 mmol/L (98-107); Globulin 1.9 g/dL (1.3-4.6); Glomerular Filtration Rate 49.1 mL/min (90-130); Glucose 123 mg/dL (65-115); Osmolality Calculated 309 mOsm/kg (285-295); Sodium 147 mmol/L (136-145); Total Bilirubin 0.4 mg/dL (0.15-1.2); Total Protein 4.8 g/dL (6.6-8.7)
[2021-03-27 07:33] LABS: Aspartate Amino Transferase 23 U/L (0-32)
[2021-03-27] MEDS: predniSONE 20 mg Tablet 40 MG PO (08:19)
[2021-03-27] MEDS: sucralfate 1 gm Tablet PO ×3 (08:19→20:24)
[2021-03-27] MEDS: enoxaparin 100 mg/mL Syringe 90 MG SUBCUT ×2 (08:19→20:23)
[2021-03-27] MEDS: guaiFENesin 600 mg Tablet 1200 MG PO ×2 (08:19→17:11)
[2021-03-27] MEDS: hyDRALAzine 25 mg Tablet PO ×3 (08:20→20:24)
[2021-03-27] MEDS: gabapentin 300 mg Capsule PO ×3 (08:20→20:24)
[2021-03-27] MEDS: aspirin 81 mg EC Tablet PO (08:21)
[2021-03-27] MEDS: pantoprazole DR 40 mg Tablet PO ×2 (08:21→17:11)
[2021-03-27] MEDS: carvedilol 25 mg Tablet PO ×2 (08:23→20:24)
[2021-03-27] MEDS: budesonide 0.5 mg/2 mL Neb INHALATION ×2 (08:33→22:05)
--- NOTE | 2021-03-27 16:08 | PM.PN ---
Subjective Subjective: Interval history: Patient was seen this morning, she tells me that she had better sleep overnight, as her Ambien was restarted, I went over her CT angiogram of the chest results, all for my concerns for lymphoma, she tells me that she wants to think about interventions, but is agreeable to see the urology nurse as outpatient, no fevers, chills, nausea, no vomiting, overall doing better she says, she is frustrated about waiting [place] [facility] [place], no hemoptysis Vitals/I&O/Wt Last Vital Signs Temp 97.5 F L 03/27/21 15:39 Pulse 77 03/27/21 15:39 Resp 16 03/27/21 15:39 BP 130/75 03/27/21 15:39 Pulse Ox 90 03/27/21 15:39 03/27/21 03/27/21 03/27/21 06:59 14:59 22:59 Intake Total 100 / 100 600 / 600 Output Total 950 / 950 850 / 850 Balance -850 / -850 -250 / -250 Weight last 48 hrs Weight 94.256 kg Physical Exam Const: COMMON NORMALS: no acute distress and patient oriented x3 GENERAL APPEARANCE: frail appearing Resp: COMMON NORMALS: normal respiratory effort, No retractions, No use of accessory muscles and clear to auscultation bilaterally AUSCULTATION: clear to auscultation bilaterally Cardio: COMMON NORMALS: regular rate, regular rhythm, S1 normal heart sound present and S2 normal heart sound present RATE: regular rate RHYTHM: regular rhythm HEART SOUNDS: S1 normal heart sound present and S2 normal heart sound present GI: COMMON NORMALS: Normal to inspection, nondistended, normoactive bowel sounds present, Soft to palpation and non-tender PALPATION: Yes Soft to palpation Extremity: COMMON NORMALS: no pedal edema Neuro: COMMON NORMALS: patient oriented x3 Psych: COMMON NORMALS: mental status grossly normal Urinary Catheter Management^: Bermudez: Cath Placed During This Visit: yes Reason for Continuing Indwelling Catheter: Other Urinary Catheter Date of Insertion: 03/16/21 Urinary Catheter Time of Insertion: 13:59 Data : 03/27/21 06:31 03/27/21 06:31 A&P Assessment and plan (1) Sepsis: Status: Acute Qualifiers: Sepsis type: sepsis due to unspecified organism Sepsis acute organ dysfunction status: with acute organ dysfunction Severe sepsis acute organ dysfunction type: acute renal failure Acute renal failure type: unspecified Severe sepsis shock status: without septic shock Qualified Code(s): A41.9 - Sepsis, unspecified organism; R65.20 - Severe sepsis without septic shock; N17.9 - Acute kidney failure, unspecified (2) Community acquired pneumonia: Status: Acute Qualifiers: Laterality: right Lung location: lower lobe of lung Qualified Code(s): J18.9 - Pneumonia, unspecified organism (3) Elevated troponin: Status: Acute (4) Hypertension: Status: Acute Qualifiers: Hypertension type: unspecified Qualified Code(s): I10 - Essential (primary) hypertension (5) A-fib: Status: Acute Qualifiers: Atrial fibrillation type: unspecified Qualified Code(s): I48.91 - Unspecified atrial fibrillation (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 (7) Respiratory failure with hypoxia: Status: Acute Qualifiers: Chronicity: acute Qualified Code(s): J96.01 - Acute respiratory failure with hypoxia (8) Acute kidney injury: Status: Acute (9) Acute CVA (cerebrovascular accident): Status: Acute (10) Adrenal mass: Status: Acute (11) NSTEMI (non-ST elevated myocardial infarction): Status: Acute (12) Hyponatremia: Status: Acute (13) Anemia: Status: Acute (14) Hypernatremia: Status: Acute (15) Mediastinal lymphadenopathy: Status: Acute Additional A&P Information Patient with a notable past medical history of hypertension, May Thurner syndrome, atrial fibrillation not currently on any anticoagulation presenting with worsening dyspnea increasing cough expectoration and hemoptysis at least over the last 3 weeks, without improvement on outpatient course of Augmentin on levofloxacin. Acute CVA: -No ocal neurologic deficits, no blurry vision, symptoms of blurry vision started over 48 hours ago, out of TPA window, NIH stroke scale 0 -MRI of the brain shows: There are innumerable bilateral foci of abnormal signal on the diffusion-weighted scans in the temporoparietal occipital lobes, the cerebellum and thalami consistent with numerous small nonhemorrhagic acute infarcts. These are most likely embolic in nature. -2D echo: Normal LV size and systolic function, EF 58%,NO RWMA, normal RV size and systolic function, moderate pulmonary hypertension. -Has a history of atrial fibrillation not on anticoagulation, had an ablation procedure in 2007 -Does have evidence of sepsis secondary to pneumonia -Did consult neurologist to [facility], agreed with aspirin, statin, heparin for anticoagulation -Likely embolic strokes for underlying atrial fibrillation, possible sepsis related -Strokes look over 48 hours old prior to admission Plan -Telemetry monitoring -Blood pressure control -Neurochecks -NIH stroke scale -Hemoptysis has resolved, hemoglobin stable, resume Lovenox Scant hemoptysis -Reports hemoptysis this morning -likely secondary to coughing -ANCA negative -Hemoglobin stable at 8.7 -QuantiFERON gold negative, will resume anticoagulation #Respiratory failure with hypoxia -Currently on 5 L -Continue nebulizer treatments -Secondary to pneumonia -Possible underlying pulmonary emboli, elevated D-dimer, venous Doppler negative for DVT, CT angiogram negative for PE -Fluid overload secondary to pulmonary edema, elevated BNP, CHF, resolved -She has been on vancomycin ,Primaxin and doxycycline. Vancomycin was discontinued on 03/22 as MRSA is negative. -Lasix as needed #Pulmonary hypertension, pulmonary arterial pressure 50 mmHg Diffuse mediastinal lymphadenopathy -Differential includes lymphoproliferative disorder, metastatic malignancy, granulomatous disease, atypical infection -We will continue to monitor -Have patient follow-up with pulmonary service #Sepsis: Likely secondary to pneumonia Resolved Meets criteria with elevated white blood cell count, tachycardia tachypnea. signs of endorgan failure including hypoxic respiratory failure, acute kidney injury. Subjective fever and chills also reported at home, currently afebrile since presentation into the ER. Fluid supplementation not initiated as patient is clinically euvolemic, elevated BNP 27,000 may have underlying CHF additionally. Blood culture: Negative till date COVID, MRSA PCR, sputum gram stain and cx, influenza ag negative Chest x-ray with right lower lobe infiltrate. unvaccinated for COVID and Flu Completed antibiotic course ( Zosyn, vancomycin , Primaxin, doxycycline ) supplemental 02 to keep saturation >92% Duoneb and budesonide inhalation Solu-Medrol 40 mg IV daily # Pneumonia: Complicated by aspiration pneumonia, has significant choking. clinically worsening as above. Abx coverage as above Modified barium study: Significant episodes of aspiration or laryngeal penetration with thin liquids and to a lesser extent the thicker liquids.Mild esophageal dysmotility. Has been started on dysphagia level 1 diet Aspiration precautions -Also with elevated D dimer, worsening dyspnea, and h/o May thruner syndrome, high suspicion for pulmonary embolism. Will order CT angiogram. Check LE venous duplex negative for DVT and echocardiogram for right heart strain no significant heart strain, no right side heart failure . -CT angiogram ordered # elevated troponin : Likely related to acute respiratory failure as above Echocardiogram Normal left ventricular size and systolic function, EF 58 %. No regional wall motion abnormalities. Normal right ventricular size and systolic function. Mild biatrial enlargement. Thickened aortic and mitral valves Moderate tricuspid valve regurgitation. Moderate pulmonary hypertension with a peak pulmonary artery systolic pressure of 58 and a mean pressure of 30 mmHg. Trace pulmonary valve regurgitation. Mild mitral valve regurgitation. There is no pericardial effusion. There are no intracardiac masses. Continue ASA 81mg po daily Continue atorvastatin # DEBRA : Creatinine 1.1 Cr up to 3.4, up from 1.3 on 03/11. No past h/o CKD per patient renal US: Normal kidneys. 2.6 cm in the determinate mass in the right adrenal gland. Renally dose all abx Hold NSAIDs, HCTZ and losartan Continue carvedilol Consult nephrology # A fib, status post ablation, currently rate controlled. Continue Coreg. Patient not on a/c as outpatient. # Transaminitis : likely from sepsis. Abdominal imaging if continues to worsen. Normal T.bili, mild elevation ALP to 117. #Hypernatremia : Hypovolemic Hypernatremia: Resolved Stop IV fluids Anemia, baseline hemoglobin unknown, continue Protonix 40 IV twice daily History of adrenal mass, known, continue to monitor, CT scan abdomen pelvis 1. There is a 3.0 cm isodense right adrenal mass. This is not fully evaluated due the lack of IV contrast. Dedicated CT scan of the adrenal glands with and without contrast or chemical shift MRI is advised. (Reference: [facility]) 2. Atherosclerotic calcified aorta with calcification and stenosis at the origins of the mesenteric and renal arteries. 3. Mild diverticulosis. 4. No acute abnormalities are seen in the abdomen and pelvis. Deconditioning, protein calorie malnutrition Disposition: Currently [place] [facility]. Attestations Medical Necessity Statement*: Patient requires hospitalization for pneumonia, respiratory failure, CVA Coding Level of Care Code Acute Respiratory Medicine Physician for [facility] Diagnoses Sepsis A41.9; R65.20; N17.9 Sepsis type: sepsis due to unspecified organism Sepsis acute organ dysfunction status: with acute organ dysfunction Severe sepsis acute organ dysfunction type: acute renal failure Acute renal failure type: unspecified Severe sepsis shock status: without septic shock Community acquired pneumonia J18.9 Laterality: right Lung location: lower lobe of lung Elevated troponin R77.8 Hypertension I10 Hypertension type: unspecified A-fib I48.91 Atrial fibrillation type: unspecified May-Thurner syndrome I87.1 Respiratory failure with hypoxia J96.01 Chronicity: acute Acute kidney injury N17.9 Acute CVA (cerebrovascular accident) I63.9 Adrenal mass E27.8 NSTEMI (non-ST elevated myocardial infarction) I21.4 Hyponatremia E87.1 Anemia D64.9 Hypernatremia E87.0 Mediastinal lymphadenopathy R59.0
[2021-03-27] MEDS: dextrose 5% 1,000 ML 75 ML IV (17:17)
[2021-03-27] MEDS: atorvastatin 40 mg Tablet PO (20:24)
[2021-03-27] MEDS: zolpidem 5 mg Tablet 10 MG PO (20:26)
[2021-03-28] VITALS (30 sets, daily range): BP systolic 92–139; BP diastolic 51–98; PULSE 68–144; RESP 17–41; TEMP 36.3–36.7; O2SAT 85–100
[2021-03-28] MEDS: ipratropium-albuterol 3 mL Neb INHALATION ×3 (03:03→21:03)
[2021-03-28] MEDS: sucralfate 1 gm Tablet PO ×4 (06:30→20:15)
[2021-03-28] MEDS: budesonide 0.5 mg/2 mL Neb INHALATION ×2 (09:44→21:03)
[2021-03-28 09:49] LABS: Basophils % 0.2 %; Eosinophils % 0.2 %; Hematocrit 30.3 % (37.0-47.0); Hemoglobin 9.4 g/dL (11.5-15.3); Lymphocytes # 0.3 10^3/uL (0.8-4.8); Lymphocytes % 2.3 %; Mean Corpuscular Hemoglobin 29.6 pg (28.0-34.0); Mean Corpuscular Volume 95.3 fl (81-99); Mean Platelet Volume 10.5 fL (7.4-10.4); Monocytes # 1.2 10^3/uL (0.2-0.9); Monocytes % 10.8 %; Neutrophils % 85.8 %; Nucleated Red Blood Cells % 0 %; Platelet Count 197 10^3/cmm (130-400); Red Blood Count 3.18 10^6/uL (4.1-5.3); Red Cell Distribution Width 14.4 % (12.1-15.1); White Blood Count 11.1 10^3/uL (4.0-10.0)
[2021-03-28] MEDS: carvedilol 25 mg Tablet PO ×2 (10:16→20:15)
[2021-03-28] MEDS: pantoprazole DR 40 mg Tablet PO ×2 (10:16→17:05)
[2021-03-28] MEDS: aspirin 81 mg EC Tablet PO (10:16)
[2021-03-28] MEDS: enoxaparin 100 mg/mL Syringe 90 MG SUBCUT ×2 (10:16→20:15)
[2021-03-28] MEDS: gabapentin 300 mg Capsule PO ×3 (10:16→20:15)
[2021-03-28] MEDS: guaiFENesin 600 mg Tablet 1200 MG PO ×2 (10:16→17:05)
[2021-03-28] MEDS: predniSONE 20 mg Tablet 40 MG PO (10:16)
[2021-03-28] MEDS: hyDRALAzine 25 mg Tablet PO ×2 (10:16→20:15)
[2021-03-28] MEDS: acetaminophen 325 mg Tablet 650 MG PO (10:24)
[2021-03-28 10:32] LABS: NT Pro B Type Natriuretic Pept 2350 pg/mL (0-125); Procalcitonin 0.14 ng/mL (0-0.5)
[2021-03-28 10:43] LABS: Alanine Aminotransferase 17 U/L (0-33); Albumin Level 3.1 g/dL (3.5-5.2); Alkaline Phosphatase 71 IU/L (35-105); Anion Gap 14.5 (5-19); Aspartate Amino Transferase 19 U/L (0-32); Blood Urea Nitrogen 21 mg/dL (8-23); C Reactive Protein 33.7 mg/L (0.0-4.9); Calcium 8.7 mg/dL (8.5-10.5); Carbon Dioxide 27 mmol/L (22-29); Chloride 105 mmol/L (98-107); Globulin 2.4 g/dL (1.3-4.6); Glomerular Filtration Rate 54.8 mL/min (90-130); Glucose 110 mg/dL (65-115); Magnesium 2.1 mg/dL (1.7-2.3); Osmolality Calculated 300 mOsm/kg (285-295); Phosphorus 3.2 mg/dL (2.5-4.5); Potassium 3.5 mmol/L (3.5-5.1); Sodium 143 mmol/L (136-145); Total Bilirubin 0.5 mg/dL (0.15-1.2); Total Protein 5.5 g/dL (6.6-8.7)
--- NOTE | 2021-03-28 11:16 | PC.OT ---
OT TREATMENT ATTEMPTED THIS A.M. PATIENT ON 15 L O2 AND SATURATION AT 86%. NURSING ATTEMPTING TO PLACE A NEW IV AND REQUESTS HOLD ON PATIENT THIS A.M. WILL ATTEMPT AGAIN IN P.M.
--- NOTE | 2021-03-28 11:31 | PC.SOCIAL ---
IMM update IMM updated with patient. Verbalized an understanding. Copy pg2 provided. Initialled, dated, timed, and placed in chart.
--- NOTE | 2021-03-28 14:38 | ECG_ITS ---
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 Measurements Intervals [place] Rate: 139 P: PA: QRS: 15 QRSD: 82 T: 25 QT: 220 QTc: 335 Interpretive Statements ATRIAL FIBRILLATION WITH RAPID VENTRICULAR RESPONSE NONSPECIFIC ST & T-WAVE ABNORMALITY ABNORMAL RHYTHM ECG Compared to ECG 03/19/2021 06:15:32 T-wave abnormality now present Sinus rhythm no longer present Electronically Signed On 03-28-2021 16:03:12 [employer] by Simi Rahman M.D. [id number]
--- NOTE | 2021-03-28 14:42 | USCV_ITS ---
Juliet Adair Age: 71 Gender: F : 1950 Exam Date: 03/28/2021 15:13 Ordering Phys: Camilo Hylton MD Technologist: Exam Location: [facility] [place] Indication: V TACH BP: 134 / 76 HR: 162 Rhythm: Sinus Technical Quality: Adequate MEASUREMENTS (Male / Female) Normal Values 2D ECHO LV Diastolic Diameter PLAX 3.7 cm 4.2 - 5.9 / 3.9 - 5.3 cm LV Systolic Diameter PLAX 2.4 cm IVS Diastolic Thickness 1.1 cm 0.6 - 1.0 / 0.6 - 0.9 cm IVS Systolic Thickness 1.5 cm LVPW Diastolic Thickness 1.0 cm 0.6 - 1.0 / 0.6 - 0.9 cm LVPW Systolic Thickness 1.1 cm LVOT Diameter 2.0 cm LV Ejection Fraction 2D Teich 65.8 % LV Ejection Fraction MOD 2C 58.8 % LV Ejection Fraction 2C AL 59.1 % LA Diameter 3.5 cm LA Width 4.4 cm LA Height 5.7 cm RA Width 4.2 cm RA Height 5.4 cm M-MODE Aortic Annulus Diameter 3.8 cm LA Ao Ratio MM 0.9 MV E Point Septal Separation 0.6 cm FINDINGS Left Ventricle Right Ventricle Right Atrium Left Atrium Mitral Valve Aortic Valve Tricuspid Valve Pulmonic Valve Pericardium Aorta CONCLUSIONS This is a limited echocardiogram performed to assess LV systolic function. Technically limited quality echocardiogram because of significant tachycardia Grossly LV systolic function is normal. Wall motion abnormalities cannot be assessed because of tachycardia. No significant change in LV function compared to prior echocardiogram from 03/16/2021. Tyson Lawrence MD (Electronically Signed) Final Date: 28 March 2021 17:28 S
--- NOTE | 2021-03-28 14:45 | XR_ITS ---
WS: [id number] Portable AP semiupright chest, 03/28/2021 Clinical Data: sob Comparison: Portable chest, 03/17/2021. Findings: Diffuse bilateral pulmonary opacities have diminished slightly. The right pleural effusion has decreased. There is a small left effusion. The heart is slightly smaller. The aortic arch and maged cending thoracic aorta show calcification and tortuosity. XR/XR chest 1V portable [id number] Impression: 1. Slight decrease in bilateral pulmonary opacities. 2. Slight decrease in heart size. 3. Small left pleural effusion.
[2021-03-28] MEDS: metOLazone 5 MG Tablet 10 MG PO (14:48)
[2021-03-28] MEDS: FUROsemide 10 mg/mL SDV 4mL 40 MG IVP ×2 (14:48→19:10)
[2021-03-28] MEDS: midodrine 5 mg TABLET 10 MG PO ×2 (15:15→18:11)
[2021-03-28 15:51] LABS: Basophils % 0.1 %; Eosinophils % 0.1 %; Hematocrit 29.6 % (37.0-47.0); Hemoglobin 9.3 g/dL (11.5-15.3); Lymphocytes # 0.3 10^3/uL (0.8-4.8); Lymphocytes % 2.3 %; Mean Corpuscular HGB Conc 31.4 g/dL (30.0-36.0); Mean Corpuscular Hemoglobin 29.5 pg (28.0-34.0); Mean Platelet Volume 10.5 fL (7.4-10.4); Monocytes # 0.5 10^3/uL (0.2-0.9); Monocytes % 4.9 %; Neutrophils # 9.83 10^3/uL (1.8-7.7); Neutrophils % 91.6 %; Nucleated Red Blood Cells % 0 %; Platelet Count 175 10^3/cmm (130-400); Red Blood Count 3.15 10^6/uL (4.1-5.3); Red Cell Distribution Width 14.6 % (12.1-15.1); White Blood Count 10.7 10^3/uL (4.0-10.0)
[2021-03-28 16:21] LABS: Troponin(5th) Baseline 136 ng/L (0-10)
[2021-03-28 16:24] LABS: Procalcitonin 0.17 ng/mL (0-0.5)
--- NOTE | 2021-03-28 16:27 | P.PN_ITS ---
Subjective Subjective: Interval history: Patient was seen early this morning, she was put up to 10 L, complaining of shortness of breath, no fevers, no chills, no nausea, no vomiting, did complain of weakness, she did have a good night, she tells me that she did not sleep much overnight This afternoon patient had 10 beats of V. tach, then went into A. fib with RVR, heart rates in the 130s, I saw patient, she was in mild respiratory distress with mild retractions, nasal flaring, alert oriented x3, put up to 15 L, this all happened when she was moving out of a chair, patient was given 20 of Cardizem, 5 oh metoprolol, 40 of Lasix, 5 of metolazone, patient was placed on Cardizem drip, moved to CSU, her respiratory status was improving, she was feeling better, Vitals/I&O/Wt Last Vital Signs Temp 98.1 F 03/28/21 15:49 Pulse 119 H 03/28/21 15:49 Resp 20 H 03/28/21 15:49 BP 111/67 03/28/21 15:49 Pulse Ox 100 03/28/21 15:49 03/28/21 03/28/21 03/28/21 06:59 14:59 22:59 Intake Total 1720 / 1720 100 / 1820 Output Total 300 / 1850 Balance -300 / -890 1720 / 1720 100 / 1820 Weight last 48 hrs Weight 91.081 kg Weight 94.256 kg Physical Exam Const: COMMON NORMALS: no acute distress GENERAL APPEARANCE: frail appearing ORIENTATION/CONSCIOUSNESS: Yes awake, Yes oriented to person, Yes oriented to place and Yes oriented to time Resp: COMMON NORMALS: normal respiratory effort, No retractions, No use of accessory muscles and clear to auscultation bilaterally AUSCULTATION: clear to auscultation bilaterally Cardio: COMMON NORMALS: S1 normal heart sound present and S2 normal heart sound present RATE: tachycardic RHYTHM: abnormal rhythm HEART SOUNDS: S1 normal heart sound present and S2 normal heart sound present GI: COMMON NORMALS: Normal to inspection, nondistended, normoactive bowel sounds present, Soft to palpation and non-tender PALPATION: Yes Soft to palpation Extremity: COMMON NORMALS: no pedal edema Neuro: SENSORIUM/ORIENTATION: Yes oriented to person, Yes oriented to place and Yes oriented to time Urinary Catheter Management^: Bermudez: Cath Placed During This Visit: yes Reason for Continuing Indwelling Catheter: Accurate Measurement of Urinary Output in Critically Ill Patients Urinary Catheter Date of Insertion: 03/16/21 Urinary Catheter Time of Insertion: 13:59 Data : 03/28/21 15:20 03/28/21 09:00 A&P Assessment and plan (1) Sepsis: Status: Acute Qualifiers: Sepsis type: sepsis due to unspecified organism Sepsis acute organ dysfunction status: with acute organ dysfunction Severe sepsis acute organ dysfunction type: acute renal failure Acute renal failure type: unspecified Severe sepsis shock status: without septic shock Qualified Code(s): A41.9 - Sepsis, unspecified organism; R65.20 - Severe sepsis without septic shock; N17.9 - Acute kidney failure, unspecified (2) Community acquired pneumonia: Status: Acute Qualifiers: Laterality: right Lung location: lower lobe of lung Qualified Code(s): J18.9 - Pneumonia, unspecified organism (3) Elevated troponin: Status: Acute (4) Hypertension: Status: Acute Qualifiers: Hypertension type: unspecified Qualified Code(s): I10 - Essential (primary) hypertension (5) A-fib: Status: Acute Qualifiers: Atrial fibrillation type: unspecified Qualified Code(s): I48.91 - Unspecified atrial fibrillation (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 (7) Respiratory failure with hypoxia: Status: Acute Qualifiers: Chronicity: acute Qualified Code(s): J96.01 - Acute respiratory failure with hypoxia (8) Acute kidney injury: Status: Acute (9) Acute CVA (cerebrovascular accident): Status: Acute (10) Adrenal mass: Status: Acute (11) NSTEMI (non-ST elevated myocardial infarction): Status: Acute (12) Hyponatremia: Status: Acute (13) Anemia: Status: Acute (14) Hypernatremia: Status: Acute (15) Mediastinal lymphadenopathy: Status: Acute Additional A&P Information Patient with a notable past medical history of hypertension, May Thurner syndrome, atrial fibrillation not currently on any anticoagulation presenting with worsening dyspnea increasing cough expectoration and hemoptysis at least over the last 3 weeks, without improvement on outpatient course of Augmentin on levofloxacin. Acute hypoxic respiratory failure secondary to A. fib with RVR, acute systolic and diastolic CHF exacerbation -Moved to cardiac stepdown unit -Oxygen therapy, will obtain ABG, chest x-ray, CBC, CMP, pro-Faisal, serial troponins -Continue aspirin, statin, therapeutic Lovenox -Increase Lasix to 40 mg IV twice daily, with metolazone -Monitor respiratory status closely -Cardizem drip -Telemetry monitoring -For now we will start on broad-spectrum antibiotic therapy vancomycin, Zosyn for possible aspiration, possible pneumonia Acute CVA: -No ocal neurologic deficits, no blurry vision, symptoms of blurry vision started over 48 hours ago, out of TPA window, NIH stroke scale 0 -MRI of the brain shows: There are innumerable bilateral foci of abnormal signal on the diffusion-weighted scans in the temporoparietal occipital lobes, the cerebellum and thalami consistent with numerous small nonhemorrhagic acute infarcts. These are most likely embolic in nature. -2D echo: Normal LV size and systolic function, EF 58%,NO RWMA, normal RV size and systolic function, moderate pulmonary hypertension. -Has a history of atrial fibrillation not on anticoagulation, had an ablation procedure in 2007 -Does have evidence of sepsis secondary to pneumonia -Did consult neurologist to [facility], agreed with aspirin, statin, heparin for anticoagulation -Likely embolic strokes for underlying atrial fibrillation, possible sepsis related -Strokes look over 48 hours old prior to admission Plan -Telemetry monitoring -Blood pressure control -Neurochecks -NIH stroke scale -Hemoptysis has resolved, hemoglobin stable, resume Lovenox Scant hemoptysis -likely secondary to coughing -ANCA negative -Hemoglobin stable -QuantiFERON gold negative, will resume anticoagulation #Respiratory failure with hypoxia -Secondary to pneumonia during initial hospitalization -Possible underlying pulmonary emboli, elevated D-dimer, venous Doppler negative for DVT, CT angiogram negative for PE -During initial hospitalization fluid overload secondary to pulmonary edema, kirsty vated BNP, CHF, resolved -She has been on vancomycin ,Primaxin and doxycycline. Vancomycin was disc ontinued on 03/22 as MRSA is negative. -Lasix as needed #Pulmonary hypertension, pulmonary arterial pressure 50 mmHg Diffuse mediastinal lymphadenopathy -Differential includes lymphoproliferative disorder, metastatic malignancy, granulomatous disease, atypical infection -We will continue to monitor -Have patient follow-up with pulmonary service #Sepsis: Likely secondary to pneumonia Resolved Meets criteria with elevated white blood cell count, tachycardia tachypnea. signs of endorgan failure including hypoxic respiratory failure, acute kidney injury. Subjective fever and chills also reported at home, currently afebrile since presentation into the ER. Fluid supplementation not initiated as patient is clinically euvolemic, elevated BNP 27,000 may have underlying CHF additionally. Blood culture: Negative till date COVID, MRSA PCR, sputum gram stain and cx, influenza ag negative Chest x-ray with right lower lobe infiltrate. unvaccinated for COVID and Flu Completed antibiotic course ( Zosyn, vancomycin , Primaxin, doxycycline ) supplemental 02 to keep saturation >92% Duoneb and budesonide inhalation Solu-Medrol 40 mg IV daily # Pneumonia: Complicated by aspiration pneumonia, has significant choking. clinically worsening as above. Abx coverage as above Modified barium study: Significant episodes of aspiration or laryngeal penetration with thin liquids and to a lesser extent the thicker liquids.Mild esophageal dysmotility. Has been started on dysphagia level 1 diet Aspiration precautions -Also with elevated D dimer, worsening dyspnea, and h/o May thruner syndrome, high suspicion for pulmonary embolism. Will order CT angiogram. Check LE venous duplex negative for DVT and echocardiogram for right heart strain no significant heart strain, no right side heart failure . -CT angiogram ordered # elevated troponin : Likely related to acute respiratory failure as above Echocardiogram Normal left ventricular size and systolic function, EF 58 %. No regional wall motion abnormalities. Normal right ventricular size and systolic function. Mild biatrial enlargement. Thickened aortic and mitral valves Moderate tricuspid valve regurgitation. Moderate pulmonary hypertension with a peak pulmonary artery systolic pressure of 58 and a mean pressure of 30 mmHg. Trace pulmonary valve regurgitation. Mild mitral valve regurgitation. There is no pericardial effusion. There are no intracardiac masses. Continue ASA 81mg po daily Continue atorvastatin # DEBRA : Creatinine 1.1 Cr up to 3.4, up from 1.3 on 03/11. No past h/o CKD per patient renal US: Normal kidneys. 2.6 cm in the determinate mass in the right adrenal gland. Renally dose all abx Hold NSAIDs, HCTZ and losartan Continue carvedilol Consult nephrology # A fib, status post ablation, currently rate controlled. Continue Coreg. Patient not on a/c as outpatient. # Transaminitis : likely from sepsis. Abdominal imaging if continues to worsen. Normal T.bili, mild elevation ALP to 117. #Hypernatremia : Hypovolemic Hypernatremia: Resolved Stop IV fluids Anemia, baseline hemoglobin unknown, continue Protonix 40 IV twice daily History of adrenal mass, known, continue to monitor, CT scan abdomen pelvis 1. There is a 3.0 cm isodense right adrenal mass. This is not fully evaluated due the lack of IV contrast. Dedicated CT scan of the adrenal glands with and without contrast or chemical shift MRI is advised. ([facility] 2. Atherosclerotic calcified aorta with calcification and stenosis at the origins of the mesenteric and renal arteries. 3. Mild diverticulosis. 4. No acute abnormalities are seen in the abdomen and pelvis. Deconditioning, protein calorie malnutrition Disposition: Currently awaiting half-way placement. Attestations Medical Necessity Statement*: Patient requires hospitalization due to atrial fibrillation with RVR, acute hypoxic respiratory failure Coding Level of Care Code Acute Kindergarten Instructional Assistant for Chg Fwd Diagnoses Sepsis A41.9; R65.20; N17.9 Sepsis type: sepsis due to unspecified organism Sepsis acute organ dysfunction status: with acute organ dysfunction Severe sepsis acute organ dysfunction type: acute renal failure Acute renal failure type: unspecified Severe sepsis shock status: without septic shock Community acquired pneumonia J18.9 Laterality: right Lung location: lower lobe of lung Elevated troponin R77.8 Hypertension I10 Hypertension type: unspecified A-fib I48.91 Atrial fibrillation type: unspecified May-Thurner syndrome I87.1 Respiratory failure with hypoxia J96.01 Chronicity: acute Acute kidney injury N17.9 Acute CVA (cerebrovascular accident) I63.9 Adrenal mass E27.8 NSTEMI (non-ST elevated myocardial infarction) I21.4 Hyponatremia E87.1 Anemia D64.9 Hypernatremia E87.0 Mediastinal lymphadenopathy R59.0
--- NOTE | 2021-03-28 16:30 | PC.NURSE ---
THIS NURSE WAS ASSISTING THE AID IN ANOTHER PT ROOM WHEN THIS NURSE GOT A TEXT FROM THE CHARGE NURSE THAT SAID THIS PT WAS SHOWING V-TACH ON THE MONITOR. THE PHYSICIAN WAS NOTIFIED IMMEDIATELY WAS A SET OF VITALS OBTAINED. VITAL SIGNS LOOKED GOOD; B/P A LITTLE SOFT, IN THE LOW 100'S. PT NOT COMPLAINING OF ANY PAIN OR ANYTHING LIKE THAT; SHE STATES SHE IS OK. THE PHYSICIAN SHOWED UP RATHER QUICKLY. HE ORDERED FOR 40MG IVP OF LASIX TO BE GIVEN. THIS NURSE ADMINISTERED THAT MEDICATION. AN EKG WAS ORDERED AND OBTAINED BY RT. IT SHOWED PT IN AFIB WITH RVR. DR ROMEO PUT IN ORDERS FOR 10MG IVP OF CARDIZEM TO BE GIVEN. THIS NURSE ADMINISTERED THAT MEDICATION WELL, VERY SLOW OVER 10 MINUTES. PT TOLERATED WELL. RESPIRATORY THERAPIST, YONY AMAYA, CHARGE NURSE DRAKE MISHRA, NURSE PLUMBING FOREMAN HAO REES, WELL MYSELF AND PHYSICIAN ARE ALL IN THE ROOM AT THIS TIME. PTS VITALS HAVE BEEN OBTAINED MULTIPLE TIMES AND HAVE REMAINED STABLE THROUGH OUT THE WHOLE SITUATION. SHE IS ON 15L OXY MASK SATING 96-100%. TRANSFER ORDERS TO CSU WERE PUT IN. THIS NURSE CALLED CSU NURSE TELLO LPN TO GIVE REPORT. PT SAFELY TRANSPORTED TO CSU.
[2021-03-28 16:35] LABS: Alanine Aminotransferase 18 U/L (0-33); Albumin Level 3.2 g/dL (3.5-5.2); Alkaline Phosphatase 77 IU/L (35-105); Anion Gap 13.8 (5-19); Aspartate Amino Transferase 21 U/L (0-32); Blood Urea Nitrogen 23 mg/dL (8-23); C Reactive Protein 41.5 mg/L (0.0-4.9); Calcium 8.3 mg/dL (8.5-10.5); Carbon Dioxide 27 mmol/L (22-29); Chloride 107 mmol/L (98-107); Globulin 1.8 g/dL (1.3-4.6); Glomerular Filtration Rate 49.1 mL/min (90-130); Glucose 130 mg/dL (65-115); Osmolality Calculated 303 mOsm/kg (285-295); Potassium 3.8 mmol/L (3.5-5.1); Sodium 144 mmol/L (136-145); Total Bilirubin 0.5 mg/dL (0.15-1.2)
--- NOTE | 2021-03-28 16:38 | ECG_ITS ---
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 Measurements Intervals [place] Rate: 134 P: MO: QRS: 13 QRSD: 86 T: -28 QT: 213 QTc: 318 Interpretive Statements ATRIAL FIBRILLATION WITH RAPID VENTRICULAR RESPONSE NONSPECIFIC ST & T-WAVE ABNORMALITY ABNORMAL RHYTHM ECG Compared to ECG 03/28/2021 14:46:20 No significant changes Electronically Signed On 03-29-2021 6:36:39 MANAGER COMMUNITY DEVELOPMENT by Simi Rahman M.D. [id number]
[2021-03-28] MEDS: vancomycin 1,500 MG/300 ML PIGGYBACK 200 MG IV (16:58)
[2021-03-28 17:12] LABS: NT Pro B Type Natriuretic Pept 3113 pg/mL (0-125)
--- NOTE | 2021-03-28 17:51 | PC.NURSE ---
Physician was called regarding hypotension while on the cardizem gtt. Patients heart rate in the 130's and blood pressure is 92/70. Physician ordered to start Amiodarone and give a bolus of 150. Then physcian ordered to give Midodrine for hypotension and add cardizem 30mg Q6.
[2021-03-28 17:53] LABS: Troponin 5 2HR Delta -7.1 ABS# (0-10)
[2021-03-28 17:54] LABS: Troponin 5 2HR 128.9 ng/L (0-10)
--- NOTE | 2021-03-28 19:45 | PC.NURSE ---
Dr. Buck notified of patient stating I feel like I'm not going to make it. Patient's lungs sound very course and wet. Patient c/o shortness of breath. ABG ordered.
[2021-03-28 20:09] LABS: ABG PCO2 50.2 mmHg (35-45); Alveolar-Arterial Oxygen Gradi 3.1 mmHg (5-10); Arterial Blood Gas Hematocrit 29.6 % (37-47); Base Excess ABG 5.2 mmol/L (-2.0-2.0); Blood Gas Allen Test Pos; Blood Gas Sample Type Arterial; Carboxyhemoglobin 1.2 %THgb (0.4-20.1); HCO3 ABG 30.9 mmol/L (22-26); HGB O2 Sat 90.1 % (95-100); Ionized Calcium Level - ABG 1.2 mmol/L (1.1-1.4); Oxygen Saturation ABG 92.1; PO2 ABG 64.2 mmHg (80.0-100.0); Potassium Level - ABG 3.7 mmol/L (3.5-5.0); Total Hemoglobin 9.7 g/dL (12-16)
[2021-03-28 20:10] LABS: Blood Gas Sample Site Radial, right; Oxygen Device NC
--- NOTE | 2021-03-28 20:13 | PC.NURSE ---
Per report from day shift, nurse, physician did not want IV Metoprolol given that was ordered at 1524.
[2021-03-28] MEDS: dilTIAZem 30 mg Tablet PO (20:15)
[2021-03-28] MEDS: atorvastatin 40 mg Tablet PO (20:15)
[2021-03-28] MEDS: zolpidem 5 mg Tablet 10 MG PO (20:24)
--- NOTE | 2021-03-28 20:38 | ECG_ITS ---
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 Measurements Intervals [address] Rate: 103 P: VT: QRS: 43 QRSD: 91 T: 53 QT: 415 QTc: 545 Interpretive Statements ATRIAL FIBRILLATION WITH RAPID VENTRICULAR RESPONSE LOW QRS VOLTAGE IN PRECORDIAL LEADS [QRS DEFLECTION < 1.0 mV IN CHEST LEADS] NONSPECIFIC ST & T-WAVE ABNORMALITY ABNORMAL RHYTHM ECG Compared to ECG 03/28/2021 16:53:38 Low QRS voltage now present T-wave abnormality still present Electronically Signed On 03-29-2021 6:35:53 FIREWALL SECURITY ENGINEER by Simi Rahman M.D. [id number]
--- NOTE | 2021-03-28 21:33 | PC.NURSE ---
Dr. Buck in room to see patient. No new orders at this time.
[2021-03-28 21:41] LABS: Troponin 5 6HR 125.8 ng/L (0-10); Troponin 5 6HR Delta -10.2 ng/L (0-12)
[2021-03-29] VITALS (99 sets, daily range): BP systolic 73–150; BP diastolic 41–77; PULSE 63–117; RESP 18–37; TEMP 34.6–36.7; O2SAT 84–99
--- NOTE | 2021-03-29 02:04 | PC.NURSE ---
Unable to awaken patient for patient to swallow PO Cardizem. Patient received PO Ambien at bedtime. Blood pressure is currently 90/51. Heart rate currently ranging high 90s to low 100s on Amio drip. Dr. Buck notified. Ordered to non-admin this dose of PO Cardizem.
[2021-03-29] MEDS: ipratropium-albuterol 3 mL Neb INHALATION ×4 (02:42→20:04)
[2021-03-29 04:03] LABS: Basophils % 0.2 %; Eosinophils % 0.1 %; Hematocrit 32.8 % (37.0-47.0); Hemoglobin 9.7 g/dL (11.5-15.3); Lymphocytes # 0.4 10^3/uL (0.8-4.8); Lymphocytes % 3.2 %; Mean Corpuscular HGB Conc 29.6 g/dL (30.0-36.0); Mean Corpuscular Hemoglobin 29.6 pg (28.0-34.0); Monocytes # 1.2 10^3/uL (0.2-0.9); Monocytes % 9.4 %; Neutrophils % 85.8 %; Nucleated Red Blood Cells % 0 %; Platelet Count 212 10^3/cmm (130-400); Red Blood Count 3.28 10^6/uL (4.1-5.3); Red Cell Distribution Width 14.8 % (12.1-15.1); White Blood Count 12.6 10^3/uL (4.0-10.0)
[2021-03-29 04:04] LABS: Glucose Point of Care 154 mg/dL (70-110)
--- NOTE | 2021-03-29 04:04 | PC.NURSE ---
Addendum entered by Amy Duque RN 03/29/21 04:06: Dr. Buck attempt to contact family with no response. Ordered to transfer patient to ICU. Original Note: Patient is not responding to pain. Patient's pupils not reactive to light. Blood pressure 73/41. Dr. Buck notified and came to see patient. Levophed drip ordered and ABG ordered.
--- NOTE | 2021-03-29 04:09 | CTR_ITS ---
PROCEDURE INFORMATION: Exam: CT Head Without Contrast Exam date and time: 03/29/2021 4:09 AM Age: 71 years old Clinical indication: Altered mental status/memory loss; Patient HX: Sudden onset of becoming unresponsive. Hypotensive. ; Additional info: Suspect CVA TECHNIQUE: Imaging protocol: Computed tomography of the head without contrast. Total images: 189 Radiation optimization: All CT scans at this facility use at least one of these dose optimization techniques: automated exposure control; mA and/or kV adjustment per patient size (includes targeted exams where dose is matched to clinical indication); or iterative reconstruction. COMPARISON: MR head wo con* [id number] 03/16/2021 12:31 PM RADIATION DOSE METRICS: Total DLP (mGy-cm): 791.46 FINDINGS: Brain: 2-3 mm density in the right frontal white matter was not present on prior exam and may represent tiny hemorrhage. Remote lacunar infarct of the left thalamus noted. Chronic lacunar infarction in the left basal ganglia. Global brain atrophy and chronic white matter ischemic changes are present. Cerebral ventricles: Ventricles are appropriate in size for degree of atrophy. Paranasal sinuses: Visualized sinuses are unremarkable. No fluid levels. Mastoid air cells: Visualized mastoid air cells are well aerated. Orbital cavity: Dysconjugate gaze. Bones/joints: Unremarkable. No acute fracture. Soft tissues: Unremarkable. CT/CT head wo con* [id number] IMPRESSION: 2-3 mm density in the right frontal white matter was not present on prior exam and may represent tiny hemorrhage. Radiation Dose CTDIVOL = (mGy): DLP = 791.46 (mGy-cm)
--- NOTE | 2021-03-29 04:13 | XRR_ITS ---
PROCEDURE INFORMATION: Exam: XR Chest Exam date and time: 03/29/2021 4:13 AM Age: 71 years old Clinical indication: Shortness of breath; Patient HX: Sudden onset of unresponsiveness. Hypoxia with hypotension. Oral secretions. ; Additional info: Evaluate for pneumothorax TECHNIQUE: Imaging protocol: XR of the chest. Views: 1 view. Total images: 1 COMPARISON: CR XR chest 1V portable [id number] 03/28/2021 3:05 PM FINDINGS: Lungs: Pulmonary vascular congestion. Bilateral pulmonary opacities are again noted and have shown interval worsening from the prior exam. Pleural spaces: Unremarkable. No pleural effusion. No pneumothorax. Heart/Mediastinum: Cardiomegaly. Vasculature: Atherosclerosis is evident. Bones/joints: Osseous structures are unchanged from the prior exam. XR/XR chest 1V portable [id number] IMPRESSION: 1. Cardiomegaly with pulmonary vascular congestion. 2. Bilateral pulmonary opacities are again noted and have shown interval worsening from the prior exam. 3. No pneumothorax Radiation Dose CTDIVOL = (mGy): DLP = (mGy-cm)
[2021-03-29 04:23] LABS: Arterial Blood Gas Hematocrit 29.7 % (37-47); Blood Gas Allen Test Pos; Blood Gas Sample Type Arterial; HCO3 ABG 33.5 mmol/L (22-26)
[2021-03-29 04:24] LABS: Blood Gas Sample Site Radial, left; Oxygen Device NC
[2021-03-29 04:28] LABS: Alanine Aminotransferase 21 U/L (0-33); Alkaline Phosphatase 77 IU/L (35-105); Anion Gap 16.8 (5-19); Aspartate Amino Transferase 21 U/L (0-32); Blood Urea Nitrogen 31 mg/dL (8-23); C Reactive Protein 45.7 mg/L (0.0-4.9); Calcium 8.5 mg/dL (8.5-10.5); Carbon Dioxide 30 mmol/L (22-29); Chloride 104 mmol/L (98-107); Globulin 1.9 g/dL (1.3-4.6); Glomerular Filtration Rate 29.7 mL/min (90-130); Glucose 155 mg/dL (65-115); Magnesium 2.3 mg/dL (1.7-2.3); Osmolality Calculated 312 mOsm/kg (285-295); Potassium 4.8 mmol/L (3.5-5.1); Sodium 146 mmol/L (136-145); Total Bilirubin 0.4 mg/dL (0.15-1.2); Total Protein 4.9 g/dL (6.6-8.7)
[2021-03-29 04:29] LABS: Phosphorus 8.1 mg/dL (2.5-4.5)
[2021-03-29 05:47] LABS: Glucose Point of Care 161 mg/dL (70-110)
[2021-03-29] MEDS: FUROsemide 10 mg/mL SDV 4mL 40 MG IVP ×2 (06:07→18:20)
[2021-03-29 06:08] LABS: Arterial Blood Gas Hematocrit 30.5 % (37-47); Base Excess ABG 2.4 mmol/L (-2.0-2.0); Blood Gas Allen Test Pos; Blood Gas Sample Site Radial, right; Blood Gas Sample Type Arterial; HCO3 ABG 32.9 mmol/L (22-26); Oxygen Device BIPAP; PO2 ABG 73.1 mmHg (80.0-100.0)
--- NOTE | 2021-03-29 06:45 | PM.EVENT ---
Event Note Event Note: Patient noted to be somnolent, lethargic, not responding to any painful or verbal stimuli at ~4am this morning. This is an acute change in her condition. She was previously noted to be awake and conversant at ~10pm on my assessment. Fingertsick 150. BP 74/50mm Hg, HR rate controlled at 72bpm, CO corelated with HR. B/L pupils appear to be dilated, poorly responsive to light. Stat ABG drawn which showed acute hypercapneic repisratory failure with pH 7.1, pco2 106 , acute change since last ABG at 8pm with normal pH and pCo2 50. Stat CT head was peformed due to concern for acute stroke- called by radiologist with results- patient has a new 2mm intracranial area of hyperdenisty, likely to be hemorrhage. no mass effect noted. While in CT, she needed suctioning to remove pooled secetions. No Gag reflex was noted at the time. Started on levophed infusion for hypotension and transferred to ICU for further care. Patient's daughter was called and updated about acute change inpatient's condition at ~4am and she presented at bedside. Discussed with her that given patient's low GCS and hypercapneic respiratory failure, she meets indication for intubation and mechanical ventilation. However daughter states that in keeping with patient's last known wishes, of which there had been extensive discussion over the past few days, she would not want to be placed on a ventilator. Additionally chest compressions unlikley to be fruitful in case of cardiac arrest in this situation if underlying respiratory issue is not corrected. Intubation was therefore not attempted and patient placed instead on Bipap. Code status changed to DNR/DNI. In Spite of bipap ventilation for over an hour, patient's ABG remains unchanged with persisting respiratory acidosis and hypercapneic failure. Additionally pressor requirement escalated to 16mcg of levophed. She has poor peripheral iv access and in order to keep amiodarone and levophed infusions, central line will need to be placed. Daughter asked if placing lines would add any chance of meaningful recovery. I have frankly discussed with her that pressors and amiodarone will add hemodynamic stability however without correcting the underlying respiratory issue, they are unlikely to improve the overall outcome. Additionally both of these infusions will not have any beneficial effect on her new intracranial hemorrhage. Patient has had a complicated hospital course thus far with multiple strokes, multiorgan failure upon presentation, NSTEMI, respiratory failure, discovery of extensive lymphadenopathy with bronchial constriction which may be reprentative of malignancy, now also with hypercapneic respiratory failure, acute encephalopathy, hypotension on pressors and new intracranial bleeding. Daughter and son in law are at bedside, contemplating transition to palliative/comfort care. Day team updated. Event Notes Attestations Time Spent in Patient Care: Greater than 35 minutes The high probability of a clinically significant, sudden or life threatening deterioration of the patient's [respiratory,cardiac,neuro] system(s) required my full and direct attention, intervention and personal management. The critical care time is as shown. This time is in addition to time spent performing any reported procedures but includes the following: [x] Data and vital sign review and interpretation [x] Patient assessment, examination and intervention [x] Documentation [x] Medication orders and management
[2021-03-29 06:48] LABS: NT Pro B Type Natriuretic Pept 11337 pg/mL (0-125); Procalcitonin 0.33 ng/mL (0-0.5)
--- NOTE | 2021-03-29 07:20 | PC.NURSE ---
Addendum entered by Rhonda Tierney RN 03/29/21 20:41: 12 @ 0600 Amio gtt stopped due to losing IV access, Dr. Buck notified. Original Note: Unstable patient: This nurse was called to CSU to assist with unresponsive, hypotensive patient for CT head. Patient transferred to CT with primary nurse, Amy SCOTT, and this nurse. Levophed was hung and started in CSU. Levophed and oxygen requirements increased over to CT. When patient transferred from bed to CT, aspiration noted in airway and emergent suction need to clear airway, at this time, this nurse did not notice a gag reflex. Before transfer, this nurse did quick bedside assessment, noting no pain response, fixed unequal pupils. Dr. Buck at ICU bedside, additional verbal orders given. Emergent titration levophed needed to maintain BP. Bipap applied, order placed for repeat ABG. Family at bedside with Dr. Buck and update provided. Unable to maintain PIV's, Dr. Buck notified, and spoke with family about femoral CL. Family declined central lines, verbalized understanding without central line we are unable to provided all medications needed at this time. With Dr. Buck at bedside Bipap removed and place on O2 per NC.
--- NOTE | 2021-03-29 07:39 | PC.OT ---
OT TREATMENT HELD TODAY DUE TO PATIENT DECLINE IN STATUS.
[2021-03-29] MEDS: budesonide 0.5 mg/2 mL Neb INHALATION ×2 (08:42→20:04)
[2021-03-29 10:20] LABS: ABG PH Result 7.16 (7.35-7.45)
[2021-03-29 10:21] LABS: ABG PCO2 92.6 mmHg (35-45)
[2021-03-29 10:21] LABS: ABG PH Result 7.11 (7.35-7.45)
--- NOTE | 2021-03-29 10:34 | PC.NURSE ---
Mental status Patient now opens eyes to verbal command, moves head slightly. No gag reflex, no movement in all four extremities, pupils reactive but unequal. No speech.
--- NOTE | 2021-03-29 16:49 | CTR_ITS ---
PROCEDURE INFORMATION: Exam: CT Head Without Contrast Exam date and time: 03/29/2021 4:49 PM Age: 71 years old Clinical indication: Abnormal findings; Abnormal radiologic findings of head/skull; Not specified; Patient HX: F/u CVA small bleed; Additional info: Follow up CVA, right sided weakness, speech TECHNIQUE: Imaging protocol: Computed tomography of the head without contrast. Radiation optimization: All CT scans at this facility use at least one of these dose optimization techniques: automated exposure control; mA and/or kV adjustment per patient size (includes targeted exams where dose is matched to clinical indication); or iterative reconstruction. COMPARISON: CT head wo con* [id number] 03/29/2021 4:41 AM RADIATION DOSE METRICS: Total DLP (mGy-cm): 1743.6 FINDINGS: Brain: Again seen is a right frontal region approximately 7 mm maximal dimension extra-axial hyperdensity suggestive of a small amount of extra-axial hemorrhage similar to prior exam. Mild diffuse white matter disease likely reflecting chronic microvascular ischemic changes. Cerebral ventricles: No ventriculomegaly. Paranasal sinuses: Visualized sinuses are unremarkable. No fluid levels. Mastoid air cells: Visualized mastoid air cells are well aerated. Bones/joints: Unremarkable. No acute fracture. Soft tissues: Unremarkable. CT/CT head wo con* [id number] IMPRESSION: 1. Again seen is a right frontal region approximately 7 mm maximal dimension extra-axial hyperdensity suggestive of a small amount of extra-axial hemorrhage similar to prior exam. 2. Mild diffuse white matter disease likely reflecting chronic microvascular ischemic changes. Radiation Dose CTDIVOL = (mGy): DLP = 1743.6 (mGy-cm)
--- NOTE | 2021-03-29 17:31 | PM.PN ---
Subjective Subjective: Interval history: Patient was examined multiple times throughout the day -Early in the morning patient was examined, currently off BiPAP, family is at bedside, she is nonresponsive, does not respond to sternal rub, pupils reactive to light, family wanted her off BiPAP, to see how she did, she is in normal sinus rhythm, saturating in the high 90s on 8 L, on 2 Levophed, normotensive, not following commands, family wants to see how she does before making a decision, she was made DNR/DNI, they want to discuss and think about it before they make her comfort care -I again saw patient in the afternoon, she was on the BiPAP, not responding to any stimuli remains normotensive, out of A. fib, -Patient was again seen later on in the afternoon, family is at bedside she was taken off BiPAP, she does awaken, does squeeze fingers, does respond to her name, but does not follow commands, does not withdraw from pain, does respond to sternal rub -I discussed with patient's daughter and her at bedside, likely what has happened is she is developed embolic event from atrial fibrillation developed an embolic stroke with a associated intracranial bleed, and an aspiration event was in thing in respiratory failure, hypercarbic respiratory failure -I advised daughter options are available: -The first option is we waited over 12 hours, so she could have incurred complications of not treating her intracranial bleed, and her hypercarbic respiratory failure, but we could pursue full medical interventions. Full medical interventions include intubating her for her airway, for the hypercarbic respiratory failure, placing central access. We have continued her diuresis, we have continued broad-spectrum antibiotic therapy for aspiration event. We can continue the Cardizem, continue pressors, and monitor her clinically. But as there is evidence of a right frontal lobe area of hemorrhage, and brain bleed, I would have to transfer her for higher level of care. We do not have neurology, neuro surgery coverage and, I do not feel comfortable managing her here as we do not have the expertise. If we are pursuing this option, this involves pursuing full medical interventions, and this would allow for optimal treatment, and the best possible outcome for optimal neurologic recovery. But it would go against her wish of not being intubated and allowing for her aggressive interventions. -The second option that I advised was pursuing comfort care, this would emphasize just making her comfortable, easing her pain easing her suffering, stopping medical interventions, giving her morphine and Ativan for air hunger and allowing her to pass away comfortably -However patient's daughter wanted to honor her wishes and did not want her to be intubated, and did not want aggressive interventions -Certainly this was a difficult decision, and I was clear with daughter that I felt uncomfortable managing a intracranial bleed and hemorrhagic stroke here at [facility] as I do not have neurology, neurosurgery, I do not have a neuro ICU, continuous EEG monitoring, and I am worried about complications that she could develop including but not limited to worsening intracranial bleeding, herniation, that will result in increased morbidity and mortality, poor neurologic outcome -Patient's daughter voiced her signing, all questions are sure, she prefer for her mom to stay here at [facility], -Her daughter wants to do interventions including continuing BiPAP, continuing antibiotics, continuing nonaggressive medical interventions, she wants to see how she does in terms of her respiratory status and neurologic outcome -I was clear with daughter that I can do my best to monitor respiratory status on the BiPAP, I can do my best to monitor her neurologic responses, do CTs of the head, but this is not the best hospital for her nor do I have the expertise and if were not going to do an all in approach she does have a high risk of morbidity and mortality, her daughter wishes any, all questions answered -The plan for now is to continue BiPAP to help with hypercarbic respiratory failure continue antibiotics, continue diuretics, monitor respiratory status, decline intubation for now however if she were to have signs of respiratory distress, suffering she is agreeable to pursue full comfort care, we can do semicomfort care with morphine and Ativan -In terms of her neurologic status, does not want her to be transferred, understands the risks and benefits to he was decided, all questions answered for now we will monitor neurologically, we can certainly give her mannitol, repeat CTs of the head, hold blood thinners, allow for permissive hypertension. However if she were to have signs of seizures we can certainly give her seizure medications. However she has evidence of worsening intracranial bleeding, evidence of herniation, cerebral edema, she is agreeable to pursuing comfort care -We will continue to monitor her closely, status is critical, prognosis is poor Vitals/I&O/Wt Last Vital Signs Temp 96.2 F L 03/29/21 10:00 Pulse 80 03/29/21 16:00 Resp 30 H 03/29/21 16:00 BP 146/77 03/29/21 16:00 Pulse Ox 98 03/29/21 16:00 03/29/21 03/29/21 03/29/21 06:59 14:59 22:59 Intake Total 600.953 / 3020.703 530.403 / 530.403 33.528 / 563.931 Output Total 450 / 3600 Balance 150.953 / -579.297 530.403 / 530.403 33.528 / 563.931 Weight last 48 hrs Weight 91.081 kg Physical Exam Const: EXAM LIMITATIONS: altered mental status GENERAL APPEARANCE: ill appearing and frail appearing ORIENTATION/CONSCIOUSNESS: Yes awake and Yes oriented to time; not oriented to person and not oriented to place Resp: COMMON NORMALS: normal respiratory effort EFFORT & INSPECTION: Yes tachypneic and Yes retractions (Slight intercostal retractions) AUSCULTATION: rhonchi and wheezes OTHER: Using necessary muscles Cardio: COMMON NORMALS: regular rate, regular rhythm, S1 normal heart sound present and S2 normal heart sound present RATE: regular rate RHYTHM: regular rhythm HEART SOUNDS: S1 normal heart sound present and S2 normal heart sound present GI: COMMON NORMALS: Normal to inspection, nondistended, normoactive bowel sounds present, Soft to palpation and non-tender PALPATION: Yes Soft to palpation Extremity: NARRATIVE EXTREMITY EXAM: 1+ bilateral lower extremity edema Neuro: SENSORIUM/ORIENTATION: No oriented to person, No oriented to place and Yes oriented to time Urinary Catheter Management^: Bermudez: Cath Placed During This Visit: yes Reason for Continuing Indwelling Catheter: Accurate Measurement of Urinary Output in Critically Ill Patients Urinary Catheter Date of Insertion: 03/16/21 Urinary Catheter Time of Insertion: 13:59 Data : 03/29/21 03:37 03/29/21 03:37 A&P Assessment and plan (1) Sepsis: Status: Acute Qualifiers: Sepsis type: sepsis due to unspecified organism Sepsis acute organ dysfunction status: with acute organ dysfunction Severe sepsis acute organ dysfunction type: acute renal failure Acute renal failure type: unspecified Severe sepsis shock status: without septic shock Qualified Code(s): A41.9 - Sepsis, unspecified organism; R65.20 - Severe sepsis without septic shock; N17.9 - Acute kidney failure, unspecified (2) Community acquired pneumonia: Status: Acute Qualifiers: Laterality: right Lung location: lower lobe of lung Qualified Code(s): J18.9 - Pneumonia, unspecified organism (3) Elevated troponin: Status: Acute (4) Hypertension: Status: Acute Qualifiers: Hypertension type: unspecified Qualified Code(s): I10 - Essential (primary) hypertension (5) A-fib: Status: Acute Qualifiers: Atrial fibrillation type: unspecified Qualified Code(s): I48.91 - Unspecified atrial fibrillation (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 (7) Respiratory failure with hypoxia: Status: Acute Qualifiers: Chronicity: acute Qualified Code(s): J96.01 - Acute respiratory failure with hypoxia (8) Acute kidney injury: Status: Acute (9) Acute CVA (cerebrovascular accident): Status: Acute (10) Adrenal mass: Status: Acute (11) NSTEMI (non-ST elevated myocardial infarction): Status: Acute (12) Hyponatremia: Status: Acute (13) Anemia: Status: Acute (14) Hypernatremia: Status: Acute (15) Mediastinal lymphadenopathy: Status: Acute (16) Hemorrhagic cerebrovascular accident (CVA): Status: Acute (17) Acute hypercapnic respiratory failure: Status: Acute (18) Aspiration pneumonia: Status: Acute Additional A&P Information Patient with a notable past medical history of hypertension, May Thurner syndrome, atrial fibrillation not currently on any anticoagulation presenting with worsening dyspnea increasing cough expectoration and hemoptysis at least over the last 3 weeks, without improvement on outpatient course of Augmentin on levofloxacin. Hemorrhagic CVA -On admission had multiple numerous embolic strokes, seen on MRI, placed on Lovenox -2-3 mm density in the right frontal white matter was not present on prior exam and may represent tiny hemorrhage. -Likely from A. fib with RVR, was on Lovenox Plan: -Family declines transfer, discussed risks and benefits and wishes to make all questions answered agreed to proceed -For now conservatively manage, neurochecks, aspiration precautions, head of bed elevation, allow for permissive hypertension -Repeat CT of the head -Monitor for complications including herniation and cerebral edema worsening bleeding if so we will pursue comfort care -DNR/DNI Acute hypoxic and hypercarbic respiratory failure secondary to A. fib with RVR, acute systolic and diastolic CHF exacerbation, with aspiration event -Currently managed in ICU -On vancomycin Primaxin -On Lasix 40 mg IV twice daily, monitor creatinine, monitor potassium, +1 L -Monitor respiratory status closely -Continue BiPAP -IV Cardizem as needed -Telemetry monitoring -on broad-spectrum antibiotic therapy vancomycin, Primaxin for possible aspiration, possible pneumonia -Keep n.p.o. -If she has evidence of worsening respiratory failure, or suffering, family will pursue full comfort care On admission as below Acute CVA: -No ocal neurologic deficits, no blurry vision, symptoms of blurry vision started over 48 hours ago, out of TPA window, NIH stroke scale 0 -MRI of the brain shows: There are innumerable bilateral foci of abnormal signal on the diffusion-weighted scans in the temporoparietal occipital lobes, the cerebellum and thalami consistent with numerous small nonhemorrhagic acute infarcts. These are most likely embolic in nature. -2D echo: Normal LV size and systolic function, EF 58%,NO RWMA, normal RV size and systolic function, moderate pulmonary hypertension. -Has a history of atrial fibrillation not on anticoagulation, had an ablation procedure in 2007 -Does have evidence of sepsis secondary to pneumonia -Did consult neurologist to [facility], agreed with aspirin, statin, heparin for anticoagulation -Likely embolic strokes for underlying atrial fibrillation, possible sepsis related -Strokes look over 48 hours old prior to admission Scant hemoptysis -likely secondary to coughing -ANCA negative -Hemoglobin stable -QuantiFERON gold negative, will resume anticoagulation #Respiratory failure with hypoxia -Secondary to pneumonia during initial hospitalization -Possible underlying pulmonary emboli, elevated D-dimer, venous Doppler negative for DVT, CT angiogram negative for PE -During initial hospitalization fluid overload secondary to pulmonary edema, elevated BNP, CHF, resolved -She has been on vancomycin ,Primaxin and doxycycline. Vancomycin was discontinued on 03/22 as MRSA is negative. #Pulmonary hypertension, pulmonary arterial pressure 50 mmHg Diffuse mediastinal lymphadenopathy -Differential includes lymphoproliferative disorder, metastatic malignancy, granulomatous disease, atypical infection -We will continue to monitor -Have patient follow-up with pulmonary service #Sepsis: Likely secondary to pneumonia Meets criteria with elevated white blood cell count, tachycardia tachypnea. signs of endorgan failure including hypoxic respiratory failure, acute kidney injury. Subjective fever and chills also reported at home, currently afebrile since presentation into the ER. Fluid supplementation not initiated as patient is clinically euvolemic, elevated BNP 27,000 may have underlying CHF additionally. Blood culture: Negative till date COVID, MRSA PCR, sputum gram stain and cx, influenza ag negative Chest x-ray with right lower lobe infiltrate. unvaccinated for COVID and Flu Completed antibiotic course ( Zosyn, vancomycin , Primaxin, doxycycline ) # Pneumonia: Complicated by aspiration pneumonia, has significant choking. clinically worsening as above. Abx coverage as above Modified barium study: Significant episodes of aspiration or laryngeal penetration with thin liquids and to a lesser extent the thicker liquids.Mild esophageal dysmotility. -Also with elevated D dimer, worsening dyspnea, and h/o May thruner syndrome, high suspicion for pulmonary embolism. Will order CT angiogram. Check LE venous duplex negative for DVT and echocardiogram for right heart strain no significant heart strain, no right side heart failure . -CT angiogram ordered # elevated troponin : Likely related to acute respiratory failure as above Echocardiogram Normal left ventricular size and systolic function, EF 58 %. No regional wall motion abnormalities. Repeat echocardiogram no significant change in EF Normal right ventricular size and systolic function. Mild biatrial enlargement. Thickened aortic and mitral valves Moderate tricuspid valve regurgitation. Moderate pulmonary hypertension with a peak pulmonary artery systolic pressure of 58 and a mean pressure of 30 mmHg. Trace pulmonary valve regurgitation. Mild mitral valve regurgitation. There is no pericardial effusion. There are no intracardiac masses. # DEBRA : Cr up to 3.4, up from 1.3 on 03/11. No past h/o CKD per patient renal US: Normal kidneys. 2.6 cm in the determinate mass in the right adrenal gland. Renally dose all abx Hold NSAIDs, HCTZ and losartan Continue carvedilol Consult nephrology # A fib, status post ablation, as above # Transaminitis : likely from sepsis. Abdominal imaging if continues to worsen. Normal T.bili, mild elevation ALP to 117. #Hypernatremia : Hypovolemic Hypernatremia: Resolved Stop IV fluids Anemia, baseline hemoglobin unknown, continue Protonix 40 IV twice daily History of adrenal mass, known, continue to monitor, CT scan abdomen pelvis 1. There is a 3.0 cm isodense right adrenal mass. This is not fully evaluated due the lack of IV contrast. Dedicated CT scan of the adrenal glands with and without contrast or chemical shift MRI is advised. [facility] 2. Atherosclerotic calcified aorta with calcification and stenosis at the origins of the mesenteric and renal arteries. 3. Mild diverticulosis. 4. No acute abnormalities are seen in the abdomen and pelvis. 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 [facility] Fwd Diagnoses Sepsis A41.9; R65.20; N17.9 Sepsis type: sepsis due to unspecified organism Sepsis acute organ dysfunction status: with acute organ dysfunction Severe sepsis acute organ dysfunction type: acute renal failure Acute renal failure type: unspecified Severe sepsis shock status: without septic shock Community acquired pneumonia J18.9 Laterality: right Lung location: lower lobe of lung Elevated troponin R77.8 Hypertension I10 Hypertension type: unspecified A-fib I48.91 Atrial fibrillation type: unspecified May-Thurner syndrome I87.1 Respiratory failure with hypoxia J96.01 Chronicity: acute Acute kidney injury N17.9 Acute CVA (cerebrovascular accident) I63.9 Adrenal mass E27.8 NSTEMI (non-ST elevated myocardial infarction) I21.4 Hyponatremia E87.1 Anemia D64.9 Hypernatremia E87.0 Mediastinal lymphadenopathy R59.0 Hemorrhagic cerebrovascular accident (CVA) I61.9 Acute hypercapnic respiratory failure J96.02 Aspiration pneumonia J69.0
[2021-03-29] MEDS: pantoprazole 40 mg SDV IVP (18:20)
[2021-03-29] MEDS: vancomycin 1,500 MG/300 ML PIGGYBACK 200 MG IV (18:21)
--- NOTE | 2021-03-29 20:59 | PC.NURSE ---
PO meds: patient too obtund to take anything PO, all PO medications held at this time, MD notified. This nurse will continue to reassess.
[2021-03-30] VITALS (41 sets, daily range): BP systolic 87–150; BP diastolic 41–70; PULSE 81–87; RESP 27–38; TEMP 36.3–37.9; O2SAT 92–97
[2021-03-30] MEDS: ipratropium-albuterol 3 mL Neb INHALATION ×2 (02:27→09:14)
[2021-03-30 04:19] LABS: ABG PCO2 49.1 mmHg (35-45); ABG PH Result 7.38 (7.35-7.45); Arterial Blood Gas Hematocrit 36.3 % (37-47); Base Excess ABG 2.8 mmol/L (-2.0-2.0); Blood Gas Allen Test Pos; Blood Gas Operator Identificat JB; Blood Gas Sample Site Radial, left; Blood Gas Sample Type Arterial; HCO3 ABG 28.7 mmol/L (22-26); PO2 ABG 65.2 mmHg (80.0-100.0)
[2021-03-30 04:31] LABS: Oxygen Device BIPAP
[2021-03-30] MEDS: pantoprazole 40 mg SDV IVP (05:26)
[2021-03-30] MEDS: FUROsemide 10 mg/mL SDV 4mL 40 MG IVP (05:26)
[2021-03-30 05:34] LABS: Basophils % 0.2 %; Eosinophils % 0.1 %; Hematocrit 29.5 % (37.0-47.0); Hemoglobin 9.2 g/dL (11.5-15.3); Lymphocytes # 0.3 10^3/uL (0.8-4.8); Lymphocytes % 2.9 %; Mean Corpuscular HGB Conc 31.2 g/dL (30.0-36.0); Mean Corpuscular Hemoglobin 29.2 pg (28.0-34.0); Mean Corpuscular Volume 93.7 fl (81-99); Mean Platelet Volume 10.7 fL (7.4-10.4); Monocytes % 8.1 %; Neutrophils # 10.26 10^3/uL (1.8-7.7); Nucleated Red Blood Cells % 0.2 %; Platelet Count 158 10^3/cmm (130-400); Red Blood Count 3.15 10^6/uL (4.1-5.3); Red Cell Distribution Width 15.1 % (12.1-15.1); White Blood Count 11.8 10^3/uL (4.0-10.0)
[2021-03-30 06:18] LABS: NT Pro B Type Natriuretic Pept 7669 pg/mL (0-125); Procalcitonin 0.38 ng/mL (0-0.5)
--- NOTE | 2021-03-30 06:18 | PC.NURSE ---
Shift Note Frequent safety and comfort rounds continue. Orders and/or nursing care completed as indicated. Patient monitored for response to intervention and treatment(s). Education provided includes Bipap with aspiration precautions, medications with side effects, treatment goals. Lines and tubes patent. Patient nodes yes to understanding. Patients daughter called at beginning of shift, update provided. Patient with right facial droop, none verbal, right sided weakness, but is opening eyes and nodes head yes and no appropriately to questions. Amiodarone gtt turned off yesterday due to lack of IV access and compatibility issues. Levophed remained off during shift with BP WNL. Will continue to monitor.
[2021-03-30 06:29] LABS: Alanine Aminotransferase 19 U/L (0-33); Albumin Level 2.9 g/dL (3.5-5.2); Alkaline Phosphatase 65 IU/L (35-105); Anion Gap 26.8 (5-19); Aspartate Amino Transferase 20 U/L (0-32); Blood Urea Nitrogen 52 mg/dL (8-23); C Reactive Protein 40.3 mg/L (0.0-4.9); Calcium 7.8 mg/dL (8.5-10.5); Carbon Dioxide 19 mmol/L (22-29); Chloride 102 mmol/L (98-107); Globulin 2.2 g/dL (1.3-4.6); Glomerular Filtration Rate 17.4 mL/min (90-130); Glucose 106 mg/dL (65-115); Osmolality Calculated 312 mOsm/kg (285-295); Phosphorus 6.2 mg/dL (2.5-4.5); Potassium 3.8 mmol/L (3.5-5.1); Sodium 144 mmol/L (136-145); Total Bilirubin 0.4 mg/dL (0.15-1.2); Total Protein 5.1 g/dL (6.6-8.7)
--- NOTE | 2021-03-30 08:26 | PC.OT ---
Patient discharged this date from skilled OT due to comfort care only.
--- NOTE | 2021-03-30 09:09 | USR_ITS ---
PROCEDURE INFORMATION: Exam: US Duplex Right Upper Extremity Veins, Limited Exam date and time: 03/30/2021 9:09 AM Age: 71 years old Clinical indication: Swelling (edema) of limb; Upper extremity, right; Additional info: Rue warm, swollen TECHNIQUE: Imaging protocol: Real-time Duplex ultrasound of the Right Upper Extremity with 2-D stovall scale, color Doppler flow and spectral waveform analysis with image documentation. Limited exam focused on the right upper extremity veins. COMPARISON: US renal BI* [id number] 03/16/2021 9:46 AM FINDINGS: Right deep veins: Unremarkable. Axillary and brachial veins are patent throughout without thrombus. Normal Doppler waveforms. Normal compressibility and/or augmentation response. Visualized internal jugular and subclavian veins are patent. Right superficial veins: Unremarkable. Visualized cephalic and basilic veins are patent without thrombus. Soft tissues: There is diffuse subcutaneous edema involving the right upper [place]. US/[place] [id number] IMPRESSION: No evidence of DVT in the right upper extremity. Radiation Dose CTDIVOL = (mGy): DLP = (mGy-cm)
[2021-03-30] MEDS: budesonide 0.5 mg/2 mL Neb INHALATION (09:14)
--- NOTE | 2021-03-30 12:02 | PC.SOCIAL ---
IMM Updated Updated and reviewed IMM w/ patients daughter. Copy provided.
--- NOTE | 2021-03-30 13:08 | PC.NURSE ---
Dr. Hylton in room with patient and family. Daughter and patient agree they would like to proceed with comfort measures.
[2021-03-30] MEDS: glycopyrrolate 0.2 mg/mL SDV 2 mL IV (14:36)
--- NOTE | 2021-03-30 15:45 | PC.NURSE ---
Family, Sandy, called and notified that patient will be transferred to room 262-1. Patient is comfort measures.
--- NOTE | 2021-03-30 16:08 | PM.PN ---
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, currently she is on BiPAP, exhibiting flaccid paralysis on the right side, she does squeeze her fingers, to verbalize understanding, she is alert to her name, afebrile overnight, normotensive, remains in normal sinus rhythm, Patient was reexamined, daughters at bedside, room is on room air, she is alert to person, she squeezes my finger, she has complete flaccid paralysis of right upper right lower extremities, she is on 2 L, normotensive, normal sinus rhythm, I discussed options with patient and daughter -When I asked patient if she were to want to continue medical interventions she nodded no, daughter agrees she does not want her mom to continue medical interventions -When I asked patient if she wants to be comfortable, pursue comfort care, morphine for air hunger, Ativan for anxiety, atropine, she nodded yes, her daughter agreed -I discussed pursuing comfort care with daughter in detail, discussed risks and benefits, she voiced understanding, all questions answered, agreed to proceed with comfort care -Daughter tells me that she wants to respect her mother's wishes, Vitals/I&O/Wt Last Vital Signs Temp 99.3 F 03/30/21 11:22 Pulse 84 03/30/21 12:00 Resp 35 H 03/30/21 12:00 BP 87/55 03/30/21 12:00 Pulse Ox 96 03/30/21 12:00 03/30/21 03/30/21 03/30/21 06:59 14:59 22:59 Intake Total 100 / 1163.931 100 / 100 Balance 100 / 113.931 100 / 100 Physical Exam Const: EXAM LIMITATIONS: altered mental status GENERAL APPEARANCE: lethargic and ill appearing ORIENTATION/CONSCIOUSNESS: Yes awake, Yes oriented to person and Yes lethargic; not oriented to place, not oriented to time and not confused Resp: COMMON NORMALS: normal respiratory effort EFFORT & INSPECTION: Yes tachypneic and Yes labored AUSCULTATION: wheezes Cardio: COMMON NORMALS: regular rate, regular rhythm, S1 normal heart sound present and S2 normal heart sound present RATE: regular rate RHYTHM: regular rhythm HEART SOUNDS: S1 normal heart sound present and S2 normal heart sound present GI: COMMON NORMALS: Normal to inspection, nondistended, normoactive bowel sounds present, Soft to palpation and non-tender PALPATION: Yes Soft to palpation Extremity: COMMON NORMALS: no pedal edema Neuro: SENSORIUM/ORIENTATION: Yes oriented to person, No oriented to place, No oriented to time and Yes lethargic Urinary Catheter Management^: Bermudez: Cath Placed During This Visit: yes Reason for Continuing Indwelling Catheter: Accurate Measurement of Urinary Output in Critically Ill Patients Urinary Catheter Date of Insertion: 03/16/21 Urinary Catheter Time of Insertion: 13:59 Data : 03/30/21 05:02 03/30/21 05:02 A&P Assessment and plan (1) Sepsis: Status: Acute Qualifiers: Sepsis type: sepsis due to unspecified organism Sepsis acute organ dysfunction status: with acute organ dysfunction Severe sepsis acute organ dysfunction type: acute renal failure Acute renal failure type: unspecified Severe sepsis shock status: without septic shock Qualified Code(s): A41.9 - Sepsis, unspecified organism; R65.20 - Severe sepsis without septic shock; N17.9 - Acute kidney failure, unspecified (2) Community acquired pneumonia: Status: Acute Qualifiers: Laterality: right Lung location: lower lobe of lung Qualified Code(s): J18.9 - Pneumonia, unspecified organism (3) Elevated troponin: Status: Acute (4) Hypertension: Status: Acute Qualifiers: Hypertension type: unspecified Qualified Code(s): I10 - Essential (primary) hypertension (5) A-fib: Status: Acute Qualifiers: Atrial fibrillation type: unspecified Qualified Code(s): I48.91 - Unspecified atrial fibrillation (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 (7) Respiratory failure with hypoxia: Status: Acute Qualifiers: Chronicity: acute Qualified Code(s): J96.01 - Acute respiratory failure with hypoxia (8) Acute kidney injury: Status: Acute (9) Acute CVA (cerebrovascular accident): Status: Acute (10) Adrenal mass: Status: Acute (11) NSTEMI (non-ST elevated myocardial infarction): Status: Acute (12) Hyponatremia: Status: Acute (13) Anemia: Status: Acute (14) Hypernatremia: Status: Acute (15) Mediastinal lymphadenopathy: Status: Acute (16) Hemorrhagic cerebrovascular accident (CVA): Status: Acute (17) Acute hypercapnic respiratory failure: Status: Acute (18) Aspiration pneumonia: Status: Acute Additional A&P Information Patient with a notable past medical history of hypertension, May Thurner syndrome, atrial fibrillation not currently on any anticoagulation presenting with worsening dyspnea increasing cough expectoration and hemoptysis at least over the last 3 weeks, without improvement on outpatient course of Augmentin on levofloxacin. Pursuing comfort care, start comfort care measures Hemorrhagic CVA -On admission had multiple numerous embolic strokes, seen on MRI, placed on Lovenox -2-3 mm density in the right frontal white matter was not present on prior exam and may represent tiny hemorrhage. -Likely from A. fib with RVR, was on Lovenox Plan: -Family declines transfer, discussed risks and benefits and wishes to make all questions answered agreed to proceed -For now conservatively manage, neurochecks, aspiration precautions, head of bed elevation, allow for permissive hypertension -Repeat CT of the head -Monitor for complications including herniation and cerebral edema worsening bleeding if so we will pursue comfort care -DNR/DNI Acute hypoxic and hypercarbic respiratory failure secondary to A. fib with RVR, acute systolic and diastolic CHF exacerbation, with aspiration event -Currently managed in ICU -On vancomycin Primaxin -On Lasix 40 mg IV twice daily, monitor creatinine, monitor potassium, +1 L -Monitor respiratory status closely -Continue BiPAP -IV Cardizem as needed -Telemetry monitoring -on broad-spectrum antibiotic therapy vancomycin, Primaxin for possible aspiration, possible pneumonia -Keep n.p.o. -If she has evidence of worsening respiratory failure, or suffering, family will pursue full comfort care On admission as below Acute CVA: -No ocal neurologic deficits, no blurry vision, symptoms of blurry vision started over 48 hours ago, out of TPA window, NIH stroke scale 0 -MRI of the brain shows: There are innumerable bilateral foci of abnormal signal on the diffusion-weighted scans in the temporoparietal occipital lobes, the cerebellum and thalami consistent with numerous small nonhemorrhagic acute infarcts. These are most likely embolic in nature. -2D echo: Normal LV size and systolic function, EF 58%,NO RWMA, normal RV size and systolic function, moderate pulmonary hypertension. -Has a history of atrial fibrillation not on anticoagulation, had an ablation procedure in 2007 -Does have evidence of sepsis secondary to pneumonia -Did consult neurologist to [facility], agreed with aspirin, statin, heparin for anticoagulation -Likely embolic strokes for underlying atrial fibrillation, possible sepsis related -Strokes look over 48 hours old prior to admission Scant hemoptysis -likely secondary to coughing -ANCA negative -Hemoglobin stable -QuantiFERON gold negative, will resume anticoagulation #Respiratory failure with hypoxia -Secondary to pneumonia during initial hospitalization -Possible underlying pulmonary emboli, elevated D-dimer, venous Doppler negative for DVT, CT angiogram negative for PE -During initial hospitalization fluid overload secondary to pulmonary edema, elevated BNP, CHF, resolved -She has been on vancomycin ,Primaxin and doxycycline. Vancomycin was discontinued on 03/22 as MRSA is negative. #Pulmonary hypertension, pulmonary arterial pressure 50 mmHg Diffuse mediastinal lymphadenopathy -Differential includes lymphoproliferative disorder, metastatic malignancy, granulomatous disease, atypical infection -We will continue to monitor -Have patient follow-up with pulmonary service #Sepsis: Likely secondary to pneumonia Meets criteria with elevated white blood cell count, tachycardia tachypnea. signs of endorgan failure including hypoxic respiratory failure, acute kidney injury. Subjective fever and chills also reported at home, currently afebrile since presentation into the ER. Fluid supplementation not initiated as patient is clinically euvolemic, elevated BNP 27,000 may have underlying CHF additionally. Blood culture: Negative till date COVID, MRSA PCR, sputum gram stain and cx, influenza ag negative Chest x-ray with right lower lobe infiltrate. unvaccinated for COVID and Flu Completed antibiotic course ( Zosyn, vancomycin , Primaxin, doxycycline ) # Pneumonia: Complicated by aspiration pneumonia, has significant choking. clinically worsening as above. Abx coverage as above Modified barium study: Significant episodes of aspiration or laryngeal penetration with thin liquids and to a lesser extent the thicker liquids.Mild esophageal dysmotility. -Also with elevated D dimer, worsening dyspnea, and h/o May thruner syndrome, high suspicion for pulmonary embolism. Will order CT angiogram. Check LE venous duplex negative for DVT and echocardiogram for right heart strain no significant heart strain, no right side heart failure . -CT angiogram ordered # elevated troponin : Likely related to acute respiratory failure as above Echocardiogram Normal left ventricular size and systolic function, EF 58 %. No regional wall motion abnormalities. Repeat echocardiogram no significant change in EF Normal right ventricular size and systolic function. Mild biatrial enlargement. Thickened aortic and mitral valves Moderate tricuspid valve regurgitation. Moderate pulmonary hypertension with a peak pulmonary artery systolic pressure of 58 and a mean pressure of 30 mmHg. Trace pulmonary valve regurgitation. Mild mitral valve regurgitation. There is no pericardial effusion. There are no intracardiac masses. # DEBRA : Cr up to 3.4, up from 1.3 on 03/11. No past h/o CKD per patient renal US: Normal kidneys. 2.6 cm in the determinate mass in the right adrenal gland. Renally dose all abx Hold NSAIDs, HCTZ and losartan Continue carvedilol Consult nephrology # A fib, status post ablation, as above # Transaminitis : likely from sepsis. Abdominal imaging if continues to worsen. Normal T.bili, mild elevation ALP to 117. #Hypernatremia : Hypovolemic Hypernatremia: Resolved Stop IV fluids Anemia, baseline hemoglobin unknown, continue Protonix 40 IV twice daily History of adrenal mass, known, continue to monitor, CT scan abdomen pelvis 1. There is a 3.0 cm isodense right adrenal mass. This is not fully evaluated due the lack of IV contrast. Dedicated CT scan of the adrenal glands with and without contrast or chemical shift MRI is advised. (Reference: [facility]) 2. Atherosclerotic calcified aorta with calcification and stenosis at the origins of the mesenteric and renal arteries. 3. Mild diverticulosis. 4. No acute abnormalities are seen in the abdomen and pelvis. 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 [facility] Fwd Diagnoses Sepsis A41.9; R65.20; N17.9 Sepsis type: sepsis due to unspecified organism Sepsis acute organ dysfunction status: with acute organ dysfunction Severe sepsis acute organ dysfunction type: acute renal failure Acute renal failure type: unspecified Severe sepsis shock status: without septic shock Community acquired pneumonia J18.9 Laterality: right Lung location: lower lobe of lung Elevated troponin R77.8 Hypertension I10 Hypertension type: unspecified A-fib I48.91 Atrial fibrillation type: unspecified May-Thurner syndrome I87.1 Respiratory failure with hypoxia J96.01 Chronicity: acute Acute kidney injury N17.9 Acute CVA (cerebrovascular accident) I63.9 Adrenal mass E27.8 NSTEMI (non-ST elevated myocardial infarction) I21.4 Hyponatremia E87.1 Anemia D64.9 Hypernatremia E87.0 Mediastinal lymphadenopathy R59.0 Hemorrhagic cerebrovascular accident (CVA) I61.9 Acute hypercapnic respiratory failure J96.02 Aspiration pneumonia J69.0
--- NOTE | 2021-03-30 16:11 | PM.DDS ---
Discharge Providers DDS Date of Admission: 03/15/21 21:29 Date Summary Completed: 03/30/21 Attending Provider at Admission: Kayy Buck MD Time of : 16:01 Attending Provider at Discharge: Camilo Hylton MD DS Diagnoses Hospital Diagnoses (1) Sepsis: Qualifiers: Sepsis type: sepsis due to unspecified organism Sepsis acute organ dysfunction status: with acute organ dysfunction Severe sepsis acute organ dysfunction type: acute renal failure Acute renal failure type: unspecified Severe sepsis shock status: without septic shock Qualified Code(s): A41.9 - Sepsis, unspecified organism; R65.20 - Severe sepsis without septic shock; N17.9 - Acute kidney failure, unspecified (2) Community acquired pneumonia: Qualifiers: Laterality: right Lung location: lower lobe of lung Qualified Code(s): J18.9 - Pneumonia, unspecified organism (3) Elevated troponin: (4) Hypertension: Qualifiers: Hypertension type: unspecified Qualified Code(s): I10 - Essential (primary) hypertension (5) A-fib: Qualifiers: Atrial fibrillation type: unspecified Qualified Code(s): I48.91 - Unspecified atrial fibrillation (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: (7) Respiratory failure with hypoxia: Qualifiers: Chronicity: acute Qualified Code(s): J96.01 - Acute respiratory failure with hypoxia (8) Acute kidney injury: (9) Acute CVA (cerebrovascular accident): (10) Adrenal mass: (11) NSTEMI (non-ST elevated myocardial infarction): (12) Hyponatremia: (13) Anemia: (14) Hypernatremia: (15) Mediastinal lymphadenopathy: (16) Hemorrhagic cerebrovascular accident (CVA): (17) Acute hypercapnic respiratory failure: (18) Aspiration pneumonia: Reason for Visit Reason for Visit: Difficulty breathing, little movement Summary Date and Time of Date of : 03/30/21 Time of : 16:01 Summary Summary: This is a 71-year-old female with a past medical history of atrial fibrillation status post ablation, not on anticoagulation, history of May Baltazar syndrome, hypertension, who moved from [place] earlier this year, who presents to [facility] for complaints of cough, shortness of breath, visual disturbances Patient presented to [facility] for Acute CVA: -No ocal neurologic deficits, no blurry vision, symptoms of blurry vision started over 48 hours ago, out of TPA window, NIH stroke scale 0 -MRI of the brain shows: There are innumerable bilateral foci of abnormal signal on the diffusion-weighted scans in the temporoparietal occipital lobes, the cerebellum and thalami consistent with numerous small nonhemorrhagic acute infarcts. These are most likely embolic in nature. -2D echo: Normal LV size and systolic function, EF 58%,NO RWMA, normal RV size and systolic function, moderate pulmonary hypertension. -Has a history of atrial fibrillation not on anticoagulation, had an ablation procedure in 2007 -Does have evidence of sepsis secondary to pneumonia -Did consult neurologist to [facility], agreed with aspirin, statin, heparin for anticoagulation -Likely embolic strokes for underlying atrial fibrillation, possible sepsis related -Strokes look over 48 hours old prior to admission -Managed with neurochecks, NIH stroke scales, blood pressure control, telemetry monitoring, initially managed with Lovenox, Lovenox had to be held due to scant hemoptysis, resumed once hemoptysis had resolved and hemoglobin was stabilized, clinically improved with identical medical floors, no focal neurologic deficits Patient presented with acute respiratory failure with hypoxia secondary to pneumonia, aspiration pneumonia, fluid overload, exacerbation of diastolic CHF, received IV diuretics, broad-spectrum anabiotic therapy, clinically improved, moved to the general medical floors, managed for aspiration precautions Pneumonia: Complicated by aspiration pneumonia, has significant choking. clinically worsening as above. Managed with antibiotics Modified barium study: Significant episodes of aspiration or laryngeal penetration with thin liquids and to a lesser extent the thicker liquids.Mild esophageal dysmotility. Management dysphagia diet Aspiration precautions Patient was found to have pulmonary hypertension Patient was found to have diffuse mediastinal lymphadenopathy -Differential includes lymphoproliferative disorder, metastatic malignancy, granulomatous disease, atypical infection -We will continue to monitor -Likely highly suspicious for lymphoma -Have patient follow-up with pulmonary service for consideration of intervention History of adrenal mass, known, continue to monitor, CT scan abdomen pelvis 1. There is a 3.0 cm isodense right adrenal mass. This is not fully evaluated due the lack of IV contrast. Dedicated CT scan of the adrenal glands with and without contrast or chemical shift MRI is advised. [facility] 2. Atherosclerotic calcified aorta with calcification and stenosis at the origins of the mesenteric and renal arteries. 3. Mild diverticulosis. 4. No acute abnormalities are seen in the abdomen and pelvis. We will follow until assessed can hemoptysis, QuantiFERON negative, hemoglobin stable, scant hemoptysis resolved, anticoagulation was resumed, no recurrent scant hemoptysis Due to deconditioning, patient was awaiting residential placement On 03/28/2021, patient developed A. fib with RVR resulting in acute flash pulmonary edema and acute diastolic CHF exacerbation and acute hypoxic respiratory failure, requiring transferring to cardiac stepdown unit, with IV diuretic therapy, initially Cardizem drip, switch to amiodarone drip, patient's clinical condition improved with diuretic therapy, and rhythm control therapy. The night of 03/29/2021, patient became nonresponsive, found to have a right frontal hemorrhagic CVA on anticoagulation secondary to embolic CVA with acute hypercarbic respiratory failure. Patient was moved to the ICU, placed on a BiPAP, diuretic therapy, broad-spectrum diuretic therapy, anticoagulation was held. Patient's family declined medical interventions, want to conservatively manage. Patient was found to have right sided flaccid paralysis, was alert, after discussion with patient's daughter patient was made comfort care. In addition patient was involved in her care, she was able to nod to yes or no questions, expressed her desire for comfort care. After discussing the risks and benefits of comfort care, daughter voiced understanding, all questions answered, agreed to proceed with comfort care. Patient 03/30/2021 at 1601 Additional Data Confirmation of as documented by pronouncing clinician: no pulse Family: at bedside Additional persons at bedside: nursing staff Attending/PCP notified?: I am attending Was code activated?: No Autopsy requested?: No Advance directives?: Yes Discharge Plan Discharge Patient Disposition: Home Condition: Stable Prescriptions: No Action cholecalciferol (vitamin D3) 25 mcg (1,000 unit) capsule 25 mcg PO DAILY RF: 0 niacin 1,000 mg tablet extended release 1,000 mg PO DAILY RF: 0 ascorbic acid (vitamin C) 1,000 mg tablet 1 g PO DAILY RF: 0 carvedilol 25 mg tablet 25 mg PO BID 90 Days Qty: 180 RF: 0 furosemide 40 mg tablet 40 mg PO DAILY Qty: 90 RF: 0 gabapentin 300 mg capsule 300 mg PO TID 90 Days Qty: 270 RF: 0 losartan-hydrochlorothiazide 100-25 mg tablet 1 tab PO DAILY Qty: 90 RF: 0 magnesium oxide 500 mg capsule 500 mg PO DAILY Qty: 90 RF: 0 naproxen 500 mg tablet 500 mg PO BID 90 Days Qty: 180 RF: 0 potassium chloride 20 mEq tablet extended release 20 meq PO DAILY Qty: 90 RF: 0 albuterol sulfate [ProAir HFA] 90 mcg/actuation HFA aerosol inhaler 2 puff inhalation Q6H PRN (Reason: shortness of breath or wheezing) Qty: 8.5 RF: 0 zolpidem 10 mg tablet 10 mg PO .hs Qty: 30 RF: 2 tramadol 50 mg tablet 50 mg PO BID PRN (Reason: pain) Qty: 60 RF: 2 (DME) oxygen 4L via NC See Rx Instructions .Route .MEDSUPPLY Qty: 1 RF: 0 levofloxacin 500 mg tablet 500 mg PO DAILY Qty: 7 RF: 0 methylprednisolone [Medrol (Eddie)] 4 mg tablets,dose pack See Rx Instructions PO PER PKG DIR Qty: 21 RF: 0 aspirin 325 mg Tablet 325 mg PO DAILY RF: 0 Referrals: Amanda Martinez FNP [Nurse Practitioner] - Patient Instructions: Opioid Safety DS Attestations Time Spent in /Discharge Care*: critical care time Critical Care Time (min): 45 Quality - AMI: AMI present?: No Quality - Stroke: CVA present?: Yes Quality - VTE: VTE present?: No Coding Level of Care Code Acute 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 [facility] Fwd Diagnoses Sepsis A41.9; R65.20; N17.9 Sepsis type: sepsis due to unspecified organism Sepsis acute organ dysfunction status: with acute organ dysfunction Severe sepsis acute organ dysfunction type: acute renal failure Acute renal failure type: unspecified Severe sepsis shock status: without septic shock Community acquired pneumonia J18.9 Laterality: right Lung location: lower lobe of lung Elevated troponin R77.8 Hypertension I10 Hypertension type: unspecified A-fib I48.91 Atrial fibrillation type: unspecified May-Thurner syndrome I87.1 Respiratory failure with hypoxia J96.01 Chronicity: acute Acute kidney injury N17.9 Acute CVA (cerebrovascular accident) I63.9 Adrenal mass E27.8 NSTEMI (non-ST elevated myocardial infarction) I21.4 Hyponatremia E87.1 Anemia D64.9 Hypernatremia E87.0 Mediastinal lymphadenopathy R59.0 Hemorrhagic cerebrovascular accident (CVA) I61.9 Acute hypercapnic respiratory failure J96.02 Aspiration pneumonia J69.0
--- NOTE | 2021-03-30 16:12 | PC.NURSE ---
Time of 1601, verified by myself and SONIA Ortega. No pulse, asystole on monitor in all leads, no RR. Family was called just prior and notified of signs of impending and asked if she would like to be here. I again attempted to call daughter minutes later without an answer. I will notify her when she arrives. Dr. Hylton notified.
--- NOTE | 2021-03-30 16:38 | PC.NURSE ---
MTS called and notified of . Patient denied.
--- NOTE | 2021-03-30 18:12 | PC.NURSE ---
Daughter, Sandy, did not choose a home at this time as they have just moved to the area and she wanted time to research. Daughter asked that patient be kept in hospital [facility] at this time. Home phone [phone].
[2021-03-31 16:33] LABS: Aspergillus AG,EIA,Serum NOT DETECTED; Aspergillus Galactomannan Inde <0.50
== END 2021-03-30 18:30 | disposition expired | DRG 871 ==
LOC: ER 20:56 → ICU 21:39 → MEDSURG 03-17 17:39 → CSU 03-28 16:13 → ICU 03-29 04:31
PROVIDERS: Internal Medicine; Internal Medicine Nephrology; Nurse Practitioner Family; Admitting Provider Student in an Organized Health Care Education/Training Program; Emergency Provider Emergency Medicine; Visit Provider Family Medicine
DX: A41.9 Sepsis, unspecified organism (principal); J69.0 Pneumonitis due to inhalation of food and vomit; J96.02 Acute respiratory failure with hypercapnia; J96.01 Acute respiratory failure with hypoxia; I61.1 Nontraumatic intracerebral hemorrhage in hemisphere, cortical; I21.4 Non-ST elevation (NSTEMI) myocardial infarction; I87.1 Compression of vein; N17.9 Acute kidney failure, unspecified; G81.01 Flaccid hemiplegia affecting right dominant side; E87.0 Hyperosmolality and hypernatremia; G93.40 Encephalopathy, unspecified; E87.2 Acidosis; R65.20 Severe sepsis without septic shock; I48.91 Unspecified atrial fibrillation; Z87.891 Personal history of nicotine dependence; Z99.81 Dependence on supplemental oxygen; Z85.41 Personal history of malignant neoplasm of cervix uteri; G62.9 Polyneuropathy, unspecified; E55.9 Vitamin D deficiency, unspecified; Z90.710 Acquired absence of both cervix and uterus; I11.0 Hypertensive heart disease with heart failure; E27.9 Disorder of adrenal gland, unspecified; Z51.5 Encounter for palliative care; Z66 Do not resuscitate; I95.9 Hypotension, unspecified; R59.0 Localized enlarged lymph nodes; I07.1 Rheumatic tricuspid insufficiency; I27.20 Pulmonary hypertension, unspecified; D64.9 Anemia, unspecified; I50.9 Heart failure, unspecified
CPT/HCPCS: 36415; 36416; 36600; 51702; 51798; 70450; 70490; 70551; 71045; 71250; 71275; 74176; 74230; 76770; 80048; 80051; 80053; 80074; 80202; 80306; 80500; 81001; 82330; 82436; 82550; 82570; 82728; 82803; 82805; 82962; 83516; 83605; 83615; 83735; 83880; 83935; 84100; 84133; 84145; 84156; 84300; 84484; 84540; 85007; 85025; 85362; 85378; 85384; 85610; 85730; 85999; 86140; 86160; 86162; 86235; 86255; 86376; 86403; 86480; 87040; 87305; 87327; 87385; 87426; 87449; 87635; 87641; 87804; 87806; 92523; 92526; 92610; 92611; 93005; 93306; 93308; 93970; 93971; 94640; 94660; 94664; 96365; 96366; 96367; 96372; 96375; 97110; 97161; 97166; 97530; 97535; 99291; C9113; J0282; J0692; J0743; J1644; J1650; J1940; J1956; J2060; J2920; J2930; J3370; J3490; J7030; J7050; J7060; J7512; J7608; J7626; Q3014; Q9967